=== PATIENT | female | born 1945 | race Caucasian/White ===

== ENCOUNTER 2024-05-19 06:56 | Inpatient (IN) | payer MEDICARE, SELFPAY ==
[2024-05-19] VITALS (15 sets, daily range): BP systolic 116–183; BP diastolic 70–116; PULSE 87–132; RESP 12–91; TEMP 36.5–37.1; O2SAT 95–100; BMI 31.0
--- NOTE | 2024-05-19 07:08 | PD.EDBACK ---
ED Back Injury Pain RME/HPI General Chief Complaint: Back Pain/Injury Stated Complaint: SOB Time Seen by Provider: 05/19/24 07:07 Arrival date/time: 05/19/24 06:56 RME / HPI RME / HPI Narrative: Patient is a 79-year-old female with past medical history of CHF (EF 25-30% 05/2022), fibromyalgia, polymyalgia rheumatica, hypothyroidism, hypertension, and asthma who was brought by ambulance to the ED on 05/19/2024 due to 10 upper back pain which started around 2:30 am this morning, constant and worsening in nature, relieved by sitting up and exacerbated by lying down, with some radiation forward to the chest. Patient states she has gotten this similar pain intermittently over the past 2-3 years and usually she relieves it with positional changes and ice packs but flares have been increasing lately and she was prescribed tramadol in the last month for the pain. She took tramadol last night before going to bed and had another half tab. She is on prednisone for her polymyalgia rheumatica and about a month ago her dose was decreased from 40 mg daily to alternating between 20 mg and 30 mg daily. Patient is on 2L home O2 as needed and at night due to her heart failure. Patient's insulator technician is Dr. Rodriguez. Patient reports her breathing has been at baseline until this morning when EMS came and she had increased pain. She is wheelchair bound. She lives at home with her . Complaint: back pain Onset (ago): hour(s) Duration: constant Similar Symptoms Previously: Yes Location: thoracic spine Severity: severe Quality: aching Radiation: other (mid-chest) Severity scale (1-10): 10 Relieving factors: sitting upright Exacerbating factors: supine and other (laying flat) Context: other (wake from sleep) Associated symptoms: other (anxiety) Related Data Home Medications ?Medication ?Instructions ?Recorded ?Confirmed albuterol sulfate 90 mcg/actuation 2 puff inhalation Q6H PRN 05/27/22 05/27/22 aerosol inhaler Shortness Of Breath Or Wheezing fluticasone 250 mcg-salmeterol 50 1 inh inhalation BID 05/27/22 05/27/22 mcg/dose blistr powdr for inhalation levothyroxine 125 mcg tablet 125 mcg PO QDAY 05/27/22 05/28/22 losartan 100 mg tablet 100 mg PO QDAY 05/27/22 05/28/22 furosemide 40 mg tablet 40 mg PO QDAY 05/28/22 05/28/22 pregabalin 75 mg capsule 75 mg PO BID 05/28/22 05/28/22 Previous Rx's ?Medication ?Instructions ?Recorded aspirin 81 mg capsule 81 mg PO QDAY #30 caps 05/29/22 carvedilol 3.125 mg tablet (Coreg) 3.125 mg PO BID #60 tabs 05/29/22 spironolactone 25 mg tablet 25 mg PO QDAY #30 tabs 05/29/22 (Aldactone) Allergies Allergy/AdvReac Type Severity Reaction Status Date / Time potassium Allergy Rash Verified 05/27/22 18:17 [id number] Reductase AdvReac Severe Myalgia Verified 05/29/22 09:40 Inhibitor Review of Systems Review of Systems Systems Reviewed: All systems reviewed, normal except as documented Past Medical History Past Medical History Comments PMH COMMENT: Past Medical History: CHF (EF 25-30% 05/2022), fibromyalgia, polymyalgia rheumatica, hypothyroidism, hypertension, and asthma Family History: Notable for heart disease in both parents Surgical History: Cholecystectomy Social History: Denies history of smoking, denies current alcohol use, denies recreational drug use Current Medications: Clopidogrel 75 mg qday, Entresto 49-51 mg, furosemide 40 mg BID (patient has been taking only 20 mg qday), metoprolol succinate 25 mg qday, levothyroxine 125 mcg qday, prednisone 20 mg/30 mg alternating every other day, tramadol 50 mg BID prn, fluticasone proprionate/salmeterol 250/50 1 puff BID, albuterol sulfate 90 mcg prn, meclizine prn, Vitamin D3 2000 U qday, liquid calcium (Source: Patient own medication list) Allergies: No known drug allergies ED Exam Narrative Physical exam: Physical Exam General: Awake and in mild distress, able to answer questions appropriately. Cushingoid appearance. HEENT: Normocephalic, atraumatic, mucous membranes moist. Humpback neck, flores face. Heart: Regular rate and rhythm, no murmurs. No tenderness to palpation of the chest. Lungs: Bilateral crackles throughout lung [place]. Audible wet breath sounds. Abdomen: Soft, obese, nondistended, nontender, positive bowel sounds. ?No guarding or rebound tenderness. Neurologic: Alert and oriented x3, no gross neurological deficit, and patient able to move all 4 extremities. Extremities: Bilateral 1+ pitting peripheral edema. Skin: No rash or ecchymoses. Course Quality Measures VTE therapy Orders Category Date Time Status COVID-19 Screening Questionnaire NOW Care 05/19/24 12:54 Active Housecalls Nurse STAT Care 05/19/24 08:08 Active Continuous Pulse Oximetry STAT Care 05/19/24 08:08 Completed Decision to Admit X1 Care 05/19/24 12:54 Completed EKG (ED ONLY) *Do not use* NOW Care 05/19/24 08:01 Completed Notify provider NOW Care 05/19/24 12:37 Active Strict Intake and Output Routine Care 05/19/24 08:08 Ordered Consult to Cardiology Stat Cons 05/19/24 12:39 Ordered CXRP [XR chest 1V portable] Stat Exams 05/19/24 08:01 Completed EKG (ED Only) Stat Exams 05/19/24 08:01 Draft BNP [B-Type Natriuretic Peptide] Stat Lab 05/19/24 08:40 Completed CBC Stat Lab 05/19/24 08:40 Completed CMP [Comprehensive Metabolic Panel] Stat Lab 05/19/24 08:40 Completed CRP [C-Reactive Protein] Stat Lab 05/19/24 08:40 Completed Drug Screen,Urine Stat Lab 05/19/24 08:12 Ordered ESR [Sed Rate (ESR)] Stat Lab 05/19/24 08:40 Completed Lactate (Lactic Acid) Stat Lab 05/19/24 08:40 Completed Lipase Stat Lab 05/19/24 08:40 Completed Mag [Magnesium] Stat Lab 05/19/24 08:40 Completed Partial Thromboplastin Time AM DRAW Lab 05/21/24 05:00 Ordered Partial Thromboplastin Time Stat Lab 05/19/24 11:50 Completed Phosphorous Stat Lab 05/19/24 08:40 Completed Prothrombin Time with INR AM DRAW Lab 05/21/24 05:00 Ordered Prothrombin Time with INR Stat Lab 05/19/24 11:50 Completed Troponin I Q6H Lab 05/19/24 15:40 Ordered Troponin I Q6H Lab 05/19/24 21:40 Ordered Troponin I Q6H Lab 05/20/24 03:40 Ordered Troponin I Stat Lab 05/19/24 08:40 Completed Troponin I Stat Lab 05/19/24 11:50 Completed Urinalysis, C/S if Indicated Stat Lab 05/19/24 08:10 Ordered Aspirin Med 05/19/24 12:27 Discontinued 325 mg PO X1 ONE Furosemide [Lasix Inj] Med 05/19/24 08:57 Discontinued 40 mg IVP X1 ONE Heparin Inj Med 05/19/24 12:37 Discontinued 2,850 unit IV X1 ONE Heparin Inj Med 05/19/24 13:25 Discontinued 4,000 unit IVP X1 ONE Heparin Inj Med 05/19/24 12:37 Discontinued 5,700 unit IV X1 ONE Heparin/D5w 25K 250 ML Ivpb [Heparin in D5w Ivpb] Med 05/19/24 12:45 Active 25,000 unit in 250 ml IV 10.49 units/kg/hr Ketorolac Inj [Toradol Inj] Med 05/19/24 07:36 Discontinued 30 mg IVP X1 ONE Morphine Inj Med 05/19/24 07:03 Discontinued 2 mg IVP X1 ONE Oxygen Delivery NOW RT 05/19/24 08:08 Active Reevaluation(s) Reevaluation #1: 11:45: Patient re-examined at the bedside. Appeared significantly improved, sitting up comfortably in bed, playing a card game on her phone, and stated back pain is now completely resolved after ice pack treatment and pain medications morphine and ketorolac. Will cancel the CT angio chest/abdomen/pelvis at this point as the pain is most likely related to polymyalgia rheumatica flare. Reevaluation #2: 12:20: Repeat troponin was significantly elevated from prior, 3.758->13.594. Will discuss with Cardiology. Patient updated on results and plan of care. Vital Signs Vital signs: Vital Signs Temperature 98.3 F 05/19/24 07:04 Pulse Rate 106 H 05/19/24 07:04 Respiratory Rate 22 H 05/19/24 07:04 Blood Pressure 160/100 H 05/19/24 07:04 Pulse Oximetry (%) 96 05/19/24 07:04 Oxygen Delivery Method Nasal Cannula 05/19/24 07:04 Oxygen Flow Rate 2 05/19/24 07:04 Procedures -ED EKG Interpretation #1: Date of EK/12/25 Time of EK:33 Rate: 98 Interpretation: Interpreted by me EKG Impression: Normal sinus rhythm, [place] deviation (left) and Bundle branch block (left) Additional EKG comment: The left bundle branch seems new compared to an old EKG from 2022. It is uncertain when this change occurred. Back Pain / Injury MDM Narrative MDM Narrative:: Patient presents with midline upper back pain which is similar in nature to prior episodes of back pain that the patient has had over the last few years but worsened in nature today to the point of waking the patient from sleep and calling EMS. Physical examination reveals mild tenderness to palpation of the midline thoracic area around the hump of the back T3-T4 area between the shoulder blades but otherwise no spinal process tenderness, no fluctuance or area of erythema, ecchymosis, heat noted. Possible differential diagnoses may include flare of polymyalgia rheumatica, disc herniation, compression fracture, musculoskeletal strain, spinal tumor, osteomyelitis, discitis, aortic dissection, aortic aneurysm, ACS, pericarditis, CHF exacerbation, costochondritis, pleural disease, renal colic from nephrolithiasis, pyelonephritis. CT angio of the chest/abdomen/pelvis, CBC, CMP, Mag, Phos, Troponin, BNP, ESR, CRP, Lactate, Urinalysis, and Urine drug screen were ordered to further investigate the above possible causes. Patient data External records reviewed:: [facility] previous records and EMS form Clinical information provided by:: patient and spouse Social determinants that could affect healthcare access:: none Patient has the following chronic illnesses:: As above How is presenting disease/condition affected by chronic disease/condition?: exacerbated by Evaluation data The following diagnostics were reviewed and interpreted by me:: lab results, radiology exam(s) and EKG tracing(s) Lab and/or radiology exams considered but not ordered:: Ordered Interpretation Summary: Leukocytosis of 20.9, likely in the setting of chronic steroid use. No evidence of pneumonia on CXR. Hemoglobin 12.1 within normal limits. BNP was elevated at 2583, consistent with patient's history of heart failure. Troponin is elevated at 3.758 and on repeat the troponin significantly uptrended to 13.594. At this point there is a suspicion for NSTEMI and Cardiology was contacted. Medications / Prescriptions Medications or Prescriptions considered but not ordered:: Given Medication administrations:: Medication Administration History Heparin Sodium/Dextrose (Heparin In D5w Ivpb) 25,000 unit in 250 mls @ 9.992 mls/hr IV .Q24H CLARA; Protocol Stop: 06/02/24 12:44 Discontinued Medications Aspirin (Aspirin 325 Mg Tablet) 325 mg PO X1 ONE Stop: 05/19/24 12:28 Last Admin: 05/19/24 12:33 Dose: 325 mg Documented By: CONSTANCE Furosemide (Furosemide Inj 10 Mg/Ml Vial 2 Ml) 40 mg IVP X1 ONE Stop: 05/19/24 08:58 Last Admin: 05/19/24 10:38 Dose: 40 mg Documented By: CONSTANCE Heparin Sodium (Porcine) (Heparin Sod Inj 5000 Unit/Ml Vial) 5,700 unit 60 unit/kg (5700 unit) IV X1 ONE; Protocol Stop: 05/19/24 12:38 Last Admin: 05/19/24 13:23 Dose: Not Given Documented By: CONSTNACE Non-Admin Reason: Cancelled by Provider Heparin Sodium (Porcine) (Heparin Sod Inj 5000 Unit/Ml Vial) 2,850 unit 30 unit/kg (2850 unit) IV X1 ONE; Protocol Stop: 05/19/24 12:38 Last Admin: 05/19/24 13:24 Dose: Not Given Documented By: CONSTANCE Non-Admin Reason: Cancelled by Provider Heparin Sodium (Porcine) (Heparin Sod Inj 5000 Unit/Ml Vial) 4,000 unit IVP X1 ONE Stop: 05/19/24 13:26 Last Admin: 05/19/24 14:12 Dose: 4,000 unit Documented By: HIGINIO Co-signed By: CONSTANCE Ketorolac Tromethamine (Ketorolac Inj 30 Mg/Ml Vial) 30 mg IVP X1 ONE Stop: 05/19/24 07:37 Last Admin: 05/19/24 07:39 Dose: 30 mg Documented By: CONSTANCE Morphine Sulfate (Morphine Sulf Inj 10 Mg/Ml Vial) 2 mg IVP X1 ONE Stop: 05/19/24 07:04 Last Admin: 05/19/24 07:23 Dose: 2 mg Documented By: CONSTANCE Given Consultations Consultation(s) initiated? (list below): No Consultation #1 (Physician, Specialty, Details): 12:30 Patient's Medical Diagnostic Radiographer, Dr. Rodriguez - Spoke with Dr. Rodriguez regarding patient case since patient is under his care. Since Dr. Rodriguez is currently out of town, he is requesting we consult Cardiology on-call, which is currently Dr. Reyes. Consultation #2 (Physician, Specialty, Details): 12:35 Cardiology on-call, Dr. Reyes - Spoke with Dr. Reyes regarding patient case. Recommend starting heparin drip and loading dose aspirin. Will consult and follow the case. Consultation #3 (Physician, Specialty, Details): 13:40 Hospitalist Team A, Dr. Heller, with attending Dr. Ernst - Discussed patient's presentation, ED findings, treatment, above consult, and indication for admission. Patient will be evaluated for admission. Diagnosis Differential diagnosis back pain/injury: lumbar radiculopathy, sciatica, strain of lumbar region, renal colic, pyelonephritis, thoracic back pain, AAA and discitis Most likely diagnosis given after review of the tests above:: NSTEMI Admission Indicated Admission indicated?: indicated Explain why admission is indicated or not indicated:: Treatment for NSTEMI Admission Request Was there a request for admission?: Yes Admission Attestation Admission request attestation: Discussed case with [Dr. Heller] from Hospitalist service with attending Dr. Ernst regarding admission. Discussed patients ED course, exam findings, labs, and radiology results. The Hospitalist [agrees] to accept the patient for admission. Disposition Plan Disposition Plan: Admit Discharge Plan Plan Patient Disposition: Admit Acute Care w/in Hospital Prescriptions/Referrals Prescriptions/Med Rec: No Action levothyroxine 125 mcg Tablet 125 mcg PO QDAY albuterol sulfate 90 mcg/actuation Hfa Aerosol Inhaler 2 puff INHALATION Q6H PRN (Reason: Shortness Of Breath Or Wheezing) losartan 100 mg Tablet 100 mg PO QDAY fluticasone propion-salmeterol 250-50 mcg/dose Blister With Device 1 inh INHALATION BID furosemide 40 mg tablet 40 mg PO QDAY pregabalin 75 mg capsule 75 mg PO BID Patient Comments: TAKE 1 CAPSULE BY MOUTH TWICE A DAY aspirin 81 mg capsule 81 mg PO QDAY Qty: 30 2RF carvedilol [Coreg] 3.125 mg tablet 3.125 mg PO BID Qty: 60 2RF Rx Instructions: must administer with a meal/food spironolactone [Aldactone] 25 mg tablet 25 mg PO QDAY Qty: 30 2RF Referrals: Suraj Yi MD [Primary Care Provider] - In 1 week Problem List Clinical Impression: Non-STEMI (non-ST elevated myocardial infarction) Patient/Caregiver Discharge Instructions Print Language: Polish Stand Alone Forms: Stacy Award Info., Patient Portal Info Letter
[2024-05-19] MEDS: MORPHINE SULF INJ 10 MG/ML VIAL 2 MG IVP (07:23)
[2024-05-19] MEDS: KETOROLAC INJ 30 MG/ML VIAL IVP (07:39)
--- NOTE | 2024-05-19 08:01 | EKG_ITS ---
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
--- NOTE | 2024-05-19 08:01 | XR_ITS ---
Examination: AP chest single view Technique one AP portable upright chest single view Exam date and time: May 19, 2024 0851 hours Comparison May 27, 2022 INDICATIONS: Shortness of breath chest pain today FINDINGS: Mild CHF Mild to moderate enlargement cardiac contour. Prominent vascular congestion with early perihilar edema Prominent osteopenia IMPRESSION: Mild CHF
[2024-05-19 09:10] LABS: Lactate (Lactic Acid) 2.2 mMol/L (0.4-2.0)
[2024-05-19 09:13] LABS: Basophils % (Auto) 0 % (0-2.5); Eosinophils % (Auto) 0 % (0-10); Hematocrit 38.4 % (36.0-46.0); Hemoglobin 12.1 g/dL (12.0-16.0); Immature Granulocytes % (Auto) 1 % (0-0); Immature Granulocytes Auto 0.26 Thou/mm3 (0.00-0.00); Lymphocytes # (Auto) 1.1 Thou/mm3 (1.0-4.8); Lymphocytes % (Auto) 5 % (10-50); Mean Corpuscular HGB Conc 31.5 g/dl (31.0-37.0); Mean Corpuscular Hemoglobin 27.4 pg (25.0-35.0); Mean Corpuscular Volume 87 fL (80-100); Monocytes % (Auto) 5 % (0-12); Neutrophils # (Auto) 18.5 Thou/mm3 (1.8-7.7); Neutrophils % (Auto) 89 % (37-80); Nucleated Red Blood Cell % 0 /100 WBC (0); Platelet Count 288 Thou/mm3 (140-440); RDW Standard Deviation 51.3 fL (36.4-46.3); Red Blood Count 4.41 Miln/mm3 (4.00-5.20); White Blood Count 20.9 Thou/mm3 (3.6-11.0)
[2024-05-19 09:32] LABS: Sed Rate (ESR) 14 mm/hr (0-30)
[2024-05-19 09:47] LABS: Alanine Aminotransferase 23 U/L (10-49); Albumin, Serum 4.3 gm/dL (3.4-4.8); Alkaline Phosphatase 79 U/L (46-116); Anion Gap 8 (7-16); Aspartate Amino Transferase 41 U/L (0-34); BUN/Creatinine Ratio 30 Ratio (12-20); Bilirubin,Total 0.3 mg/dL (0.3-1.2); Blood Urea Nitrogen 39 mg/dL (9-23); C-Reactive Protein < 0.4 mg/dL (0.0-0.9); Carbon Dioxide 30.2 mMol/L (20.0-31.0); Chloride 103 mMol/L (98-107); Creatinine (Component) 1.3 mg/dL (0.6-1.3); Estimated Creatinine Clearance 43.1 mL/min (>60); Globulin 2.1 gm/dL (2.3-3.5); Glucose 169 mg/dL (74-106); Lipase 38 U/L (12-53); Magnesium 2.1 mg/dL (1.6-2.6); Osmolality,Calculated 294 (275-295); Potassium 4.6 mMol/L (3.4-5.1); Sodium 141 mMol/L (136-145); Total Protein 6.4 gm/dL (5.7-8.2); eGFR 42 See Note
[2024-05-19 09:53] LABS: Troponin I 3.758 ng/mL (0.0-0.045)
[2024-05-19 09:57] LABS: B-Type Natriuretic Peptide 2583 pg/mL (0-100)
[2024-05-19] MEDS: FUROSEMIDE INJ 10 MG/ML VIAL 2 ML 40 MG IVP (10:38)
[2024-05-19 12:08] LABS: Reflex Lactate? Y
[2024-05-19 12:25] LABS: Troponin I 13.594 ng/mL (0.0-0.045)
[2024-05-19] MEDS: Aspirin 325 MG TABLET PO (12:33)
[2024-05-19 13:58] LABS: INR 0.9 (0.9-1.3); Prothrombin Time 10.3 Seconds (9.0-12.2)
[2024-05-19] MEDS: HEPARIN SOD INJ 5000 UNIT/ML VIAL 4000 UNIT IVP (14:12)
[2024-05-19] MEDS: Heparin/D5w 25K 250 ML Ivpb 25,000 UNIT/250 ML BAG 9.992 UNIT IV (14:31)
--- NOTE | 2024-05-19 15:11 | ECHO_ITS ---
Transthoracic Echo Report Ht (in): 68.9 Wt (lb): 210 Exam Location: Echo Lab Status: Emergency Turn Supervisor: BRANDIN Carmona Indications: Procedure Performed: BP: 154 / 70 HR: 96 Technical Quality: Technically difficult study MEASUREMENTS (Male / Female) Normal Values M-MODE AV Cusp Separation MM 0.8 cm DOPPLER AV Peak Gradient 11.3 mmHg AV Mean Gradient 5.4 mmHg AV Velocity Time Integral 27.5 cm LVOT Peak Gradient 3.0 mmHg LVOT Velocity Time Integral 12.4 cm MR Peak Velocity 602.0 cm/s MR Peak Gradient 145.0 mmHg TR Peak Gradient 34.1 mmHg FINDINGS Left Ventricle Normal left ventricular size. Global left ventricular systolic function is moderately decreased. The ejection fraction is visually estimated at 30-35%. Right Ventricle The right ventricle is normal in size and systolic function. The estimated right ventricular systolic pressure, 39 mmHg. RAP 5. Left Atrium The left atrium is normal by two-dimensional, color flow and Doppler imaging with no structural abnormalities, no thrombus formation present. Right Atrium The right atrium is normal by two-dimensional imaging, color flow and Doppler imaging with no structural abnormalities, no thrombus formation present. Atrial Septum The interatrial septum appears normal with no evidence of a shunt. Aorta The aorta is normal by two-dimensional, color flow and Doppler interrogation. Mitral Valve The mitral valve is normal by two-dimensional, color flow and Doppler interrogation. Moderate mitral regurgitation. Aortic Valve The aortic valve is trileaflet and normal by two-dimensional, color flow and Doppler interrogation. There is no significant aortic valve regurgitation. Tricuspid Valve The tricuspid valve is normal by two-dimensional, color flow and Doppler interrogation. There is mild tricuspid valve regurgitation. Pulmonic Valve The pulmonic valve is not well visualized. There is no significant pulmonic valve regurgitation. Vessels The pulmonary artery appears normal. The inferior vena cava pulmonary and hepatic veins appear normal. Pericardium The pericardium is normal by two-dimensional imaging. There is no significant pericardial effusion. CONCLUSIONS Indication: NSTEMI, hx HFrEF LV mildy dilated with global hypokinesis with Estimated EF 30-35%%. RV is normal in size and systolic function. Estimated RVSP, 39 mmHg. RAP 5. [place] 2+MR. Mild TR. [place] (Electronically Signed) Final Date: 19 May 2024 23:52
--- NOTE | 2024-05-19 15:18 | ESHP_ITS ---
<Statement entered by Raiza Lock MD - 05/19/24 17:57> Patient is a 79 year old female with PMH of HFrEF 25-30%, fibromyalgia, polymyalgia rheumatica on chronic steroids, statin-related myopathy now wheelchair-bound who presents to the ER for sharp upper back pain. EKG showed a left BBB and ?ST depression in lead II. Troponin was 3 to 13 to 29. Patient was given aspirin, nitro, morphine, and started on heparin drip. Cardiolgoy was consulted for atypical chest pain and suspected NSTEMI. Patient to undergo cardiac cath. Raiza Lock MD PGY-3 Documentation for date of: 05/19/24 HPI History of Present Illness Chief complaint: middle upper back pain, radiates to shoulders History of present illness: Chitra Roman is a 79 yr female with PMH of fibromyalgia, polymyalgia rheumatica, hypothyroidism, hypertension, wheelchair-bound, asthma, HFrEF (25- 30%), on 2 L oxygen use at night, obesity, chronic neck shoulder pain who presented to ED today due to mid upper back pain that worsened through the night. Patient stated that the pain was unbearable causing her to wake up. She has experienced this type pain before but not to this extent. Pain started around 2 AM, mid scapular, burning sensation 9/10, no alleviation with ice pack that usually helps. Patient had taken a tramadol 50 mg x 1 before bedtime. Denies any chest pain however endorses radiation of the back pain to the shoulders bilaterally. Denies any headaches, change in vision, abdominal pain, fevers, palpitations, diaphoresis, or dysuria. In regards to patient's fibromyalgia/polymyalgia rheumatica, she is being followed by rheumatology Dr. Pearson who has restarted the patient on prednisone 3 months ago. Typically autoimmune disorder is controlled with ice packs and tramadol but has worsened in past few months. In ED, Vitals significant for hypertension 160/100, slight tachy 106, tachypnea 22, on 2 L nasal cannula saturating 96%. Labs reveal leukocytosis 20, hemoglobin 12, sodium 144, potassium 4.6, creatinine 1.3, glucose 169, lactic acid slightly elevated 2.2, Phos 4.0, mag 2.1, troponins up trended from 3.75- 13.59, BNP 2583. EKG showed new onset LBBB, no ST elevation/depression. Chest x-ray negative for pneumonia, enlarged cardiac contour with vascular congestion indicating CHF. Dr. Reyes was consulted and patient was started on heparin drip in the ED. Also given aspirin loading dose to 25 mg, Lasix 40 IV x 1, ketorolac 30 mg IV x 1, morphine 2 mg IV x 1 Patient admitted for management of NSTEMI type I. PMH: as above. Of note, patient is wheelchair-bound due to myopathy in response to statins as well as unknown inherited cause of muscle weakness from father. PSH: Cholecystectomy FamHx: Both mother and father had history of [place] with stents, hypertension Social: Unemployed, lives in [place] with . Denies smoking, drinking. Allergies: potassium (rash), Statins (myopathy) Meds: Albuterol, levo thyroxine 125 mcg, losartan 100 mg daily, furosemide 40 mg daily, pregabalin 75 twice daily tramadol 25 twice daily, prednisone 40 mg daily Review of Systems Constitutional Constitutional: Reports system reviewed and no additional complaints, except as documented Exam Vital Signs Temp Pulse Resp BP Pulse Ox O2 Del Method O2 Flow Rate 98.2 F 95 20 137/77 H 99 Nasal Cannula 3 05/19/24 14:15 05/19/24 14:15 05/19/24 14:15 05/19/24 14:15 05/19/24 14:15 05/19/24 14:15 05/19/24 14:15 Narrative Exam General: Elderly female, laying comfortably, no acute distress, cooperative HEENT: NCAT, No JVD noted. Mucosa moist. Pupils are equal and reactive to light bilaterally, flores facies Cardiovascular: Normal S1 and S2. Regular rate and rhythm. Respiratory: Lungs are clear to auscultation bilaterally. No wheezing or crackles heard. On 2L NC Abdomen: Soft, nontender, not distended, normal bowel sounds. Skin: Warm to touch, dry, facial redness, dried pimple/lesion on left cheek Musculoskeletal: No gross injuries. Able to move all 4 extremities. No pitting edema, atrophic LE Neuro: Alert and oriented x3. No focal neuro deficits. Psych: Normal affect and mood Results: Labs 05/20/24 04:34 05/20/24 04:34 Labs: Short CBC 05/19/24 Range/Units 08:40 WBC 20.9 H (3.6-11.0) Thou/mm3 Hgb 12.1 (12.0-16.0) g/dL Hct 38.4 (36.0-46.0) % Plt Count 288 (140-440) Thou/mm3 BMP 05/19/24 08:40 Sodium 141 Potassium 4.6 Chloride 103 Carbon Dioxide 30.2 BUN 39 H Creatinine 1.3 Glucose 169 H Calcium 10.0 Cardiac Enzymes 05/19/24 05/19/24 Range/Units 08:40 11:50 Troponin I 3.758 H* 13.594 H* D (0.0-0.045) ng/mL Liver Function 05/19/24 Range/Units 08:40 Total Bilirubin 0.3 (0.3-1.2) mg/dL AST 41 H (0-34) U/L ALT 23 (10-49) U/L Alkaline Phosphatase 79 (46-116) U/L Albumin 4.3 (3.4-4.8) gm/dL Quality Measures Quality Measures VTE therapy Advance care planning discussed with:: patient Medications Home Medications and Allergies Home Medications ?Medication ?Instructions ?Recorded ?Confirmed ?Type albuterol sulfate 90 mcg/actuation 2 puff inhalation Q 6H PRN 05/27/22 05/19/24 History aerosol inhaler Shortness Of Breath Or Wheez ing fluticasone 250 mcg-salmeterol 50 1 inh inhalation BID 05/27/22 05/19/24 History mcg/dose blistr powdr for inhalation levothyroxine 125 mcg tablet 125 mcg PO QDAY 05/27/22 05/19/24 History furosemide 40 mg tablet 40 mg PO QDAY 05/28/2205/19 History clopidogrel 75 mg tablet 75 mg PO QDAY 05/19/2405/19 History meclizine 50 mg tablet 50 mg PO QDAY 05/19/2405/19 History prednisone 10 mg tablet 30 mg PO EVERYOTHERDAY 05/1905/19/24 History prednisone 20 mg tablet 20 mg PO EVERYOTHERDAY 05/1905/19/24 History sacubitril 49 mg-valsartan 51 mg 1 tab PO BID 05/19/24 05/19/24 History tablet (Entresto) tramadol 50 mg tablet 50 mg PO Q12H PRN pain 05/1905/19/24 History carvedilol 3.125 mg tablet (Coreg) 3.125 mg PO BID 05/20/24 History Allergies Allergy/AdvReac Type Severity Reaction Status Date / Time potassium Allergy Rash Verified 05/27/22 18:17 Aaenyaz-IVG-DtE Reductase AdvReac Severe Myalgia Verified 05/29/22 09:40 Inhibitor Visit Medications Acetaminophen (Acetaminophen 325 Mg Tablet) 650 mg PO Q6H PRN PRN Reason: Fever >100.3 or pain Stop: 06/18/24 15:03 Aspirin (Aspirin Ec 81 Mg Tabec) 81 mg PO DAILY CLARA Stop: 06/19/24 08:59 Heparin Sodium/Dextrose (Heparin In D5w Ivpb) 25,000 unit in 250 mls @ 9.992 mls/hr IV .Q24H CLARA; Protocol Stop: 06/02/24 12:44 Last Admin: 05/19/24 14:31 Dose: 10.49 units/kg/hr, 9.992 mls/hr Ondansetron HCl (Ondansetron Inj 2 Mg/Ml Inj 2 Ml) 4 mg IV Q6H PRN; Protocol PRN Reason: NAUSEA OR VOMITING Stop: 06/18/24 15:03 Sennosides (Senna Tablet) 1 tab PO QDAY PRN; Protocol PRN Reason: constipation Stop: 06/18/24 15:03 Discontinued Medications Aspirin (Aspirin 325 Mg Tablet) 325 mg PO X1 ONE Stop: 05/19/24 12:28 Last Admin: 05/19/24 12:33 Dose: 325 mg Furosemide (Furosemide Inj 10 Mg/Ml Vial 2 Ml) 40 mg IVP X1 ONE Stop: 05/19/24 08:58 Last Admin: 05/19/24 10:38 Dose: 40 mg Heparin Sodium (Porcine) (Heparin Sod Inj 5000 Unit/Ml Vial) 5,700 unit 60 unit/kg (5700 unit) IV X1 ONE; Protocol Stop: 05/19/24 12:38 Last Admin: 05/19/24 13:23 Dose: Not Given Heparin Sodium (Porcine) (Heparin Sod Inj 5000 Unit/Ml Vial) 2,850 unit 30 unit/kg (2850 unit) IV X1 ONE; Protocol Stop: 05/19/24 12:38 Last Admin: 05/19/24 13:24 Dose: Not Given Heparin Sodium (Porcine) (Heparin Sod Inj 5000 Unit/Ml Vial) 4,000 unit IVP X1 ONE Stop: 05/19/24 13:26 Last Admin: 05/19/24 14:12 Dose: 4,000 unit Ketorolac Tromethamine (Ketorolac Inj 30 Mg/Ml Vial) 30 mg IVP X1 ONE Stop: 05/19/24 07:37 Last Admin: 05/19/24 07:39 Dose: 30 mg Morphine Sulfate (Morphine Sulf Inj 10 Mg/Ml Vial) 2 mg IVP X1 ONE Stop: 05/19/24 07:04 Last Admin: 05/19/24 07:23 Dose: 2 mg Nitroglycerin (Nitroglycerin 0.4 Mg Subl Btl #25) 0.4 mg SL X1 ONE Stop: 05/19/24 15:16 Assessment & Plan Plan Chitra Roman is a 79 yr female with PMH of fibromyalgia, polymyalgia rheumatica, hypothyroidism, hypertension, wheelchair-bound, asthma, HFrEF (25- 30%), on 2 L oxygen use at night, obesity, chronic neck shoulder pain who presented to ED today due to mid upper back pain that worsened through the night. Pain started around 2 AM, mid scapular, burning sensation 9/10, no alleviation with ice pack that usually helps. Denies any headaches, change in vision, abdominal pain, fevers, palpitations, diaphoresis, or dysuria. Patient admitted for management of NSTEMI type I. #NSTEMI type I Patient is having atypical chest pain. However, this episode was more significant and unremitting in nature. Pain started around 2 AM, mid scapular, burning sensation 9/10, no alleviation with ice pack that usually helps. Troponins up trended from 3.75-13.59, BNP 2583. EKG showed new onset LBBB, no ST elevation/depression. Chest x-ray negative for pneumonia, enlarged cardiac contour with vascular congestion indicating CHF. Dr. Reyes was consulted and patient was started on heparin drip in the ED. Also given aspirin loading dose to 325 mg, Lasix 40 IV x 1, ketorolac 30 mg IV x 1, morphine 2 mg IV x 1 -Patient will undergo cardiac cath tomorrow ? N.p.o. at midnight ? Follow-up with echo ? Give nitroglycerin sublingual x 1 ? Continue aspirin 81 mg ? Trend troponins every 6 hours ? EKG every 6 hour ? Hold any statins due to patient's severe myopathy ? Does not appear to be overloaded. Will consider restarting Coreg pending cardiology recs -herparin drip per ACS protocol #Hx HFrEF (25-30%) Most recent echo on 05/28/2022. Severe systolic dysfunction, global hypokinesis, estimated EF 25-30%. Difficult to grade NYHA class as patient is wheel chair bound. Sees Dr. Rodriguez outpatient. Currently does not appear to be fluid overloaded on physical exam. Home meds: -Losartan 100 mg daily ? Coreg 3.125 mg daily ? Spironolactone 25 mg daily -furosemide 40 mg daily -daily weights -strict INOs -low sodium diet -keep potassium >4, mag >2 -daily CBC, CMP #Lactic acidosis Mildly elevated at 2.2 -trend lactate q4hr #Hx fibromyalgia #Polymyalgia rheumatica Patient has history of disease since past 3-4 years. Is followed by first mate Dr. Pearson. Patient had been on steroid dose for management sometime ago. Pain and rashes were well-controlled with ice. However recently symptoms have worsened and she has been restarted on the prednisone approximately 3 months ago. -home prednisone 10 mg daily -tramadol 25 mg BID #Hx Hypothyroidism -TSH pending -levothyroxine 125 mg #Hx HTN Patient has been hypertensive since admission. States that it is well controlled at home. -Coreg 3.125 mg BID -Losartan 100 mg daily Health maintenance: Dispo: NSTEMI, pending cardiac cath DVT prophylaxis: heparin drip CODE STATUS: Full code Diet: Cardiac diet, NPO at midnight The patient's management plan was discussed with my attending physician Dr. Ernst and senior Dr. Lock. Kareen Heller, PGY-1 Attending Provider Attestation/Addendum I have discussed and was present for the essential components of the history, physical examination, diagnosis, and treatment plan with the resident. I agree with the patient's care as documented by the resident and amended herein by me. Dennys Ernst, DO. Although this document has been carefully reviewed, there may still be some phonetic and other typographical errors. These errors are purely grammatical due to imperfections in the software program and should not be construed in any way to compromise the substance of the patient's medical care during this visit.
[2024-05-19] MEDS: ONDANSETRON INJ 2 MG/ML INJ 2 ML 4 MG IV (15:27)
[2024-05-19] MEDS: NITROGLYCERIN 0.4 MG SUBL BTL #25 SL (15:29)
[2024-05-19 15:46] LABS: Collection Type, Urine Clean Catch
[2024-05-19] MEDS: MECLIZINE HCL 25 MG TABLET PO (15:55)
[2024-05-19 16:09] LABS: Bilirubin,Urine Negative (Negative); Blood,Urine Negative (Negative); Clarity,Urine Clear (Clear/Hazy); Color,Urine Lt-Yellow (Lt Yel-Yel); Culture Indicated,Urine Not Indicated; Glucose, Urine Negative (Negative); Hyaline Casts,Urine < 1 /hpf (0-1); Ketones,Urine Negative (Negative); Leukocyte Esterase,Urine Positive (Negative); Nitrite,Urine Negative (Negative); Protein,Urine Negative (Neg - Trace); RBC,Urine 1 /hpf (0-3); Specific Gravity,Urine 1.014 (1.001-1.035); Squamous Epithelial Cell,Urine 4 /hpf (0-5); Urobilinogen,Urine Negative mg/dL (0.0-1.0); WBC,Urine 2 /hpf (0-5)
[2024-05-19 16:11] LABS: Amphetamine/Methamp Scrn,U Negative (Negative); Barbiturate Screen,Urine Negative (Negative); Benzodiazepines Screen,Urine Negative (Negative); Benzoylecgonine Screen, Ur Negative (Negative); Fentanyl Screen,Urine Negative (Negative); Opiate Screen,Urine Positive (Negative); THC Screen,Urine Negative (Negative)
[2024-05-19 16:17] LABS: Glucose Estimated Average 126 mg/dL (80-131)
[2024-05-19 17:21] LABS: Troponin I 29.172 ng/mL (0.0-0.045)
--- NOTE | 2024-05-19 17:36 | PD.RESCONSUL ---
HPI Data of Consult Requesting Physician: Barrera Ernst DO Admitting Provider: Barrera Ernst DO Attending Provider: Barrera Ernst DO Primary Care Provider: Suraj Yi MD Consult Narrative Reason for consult: NSTEMI History of present illness: 79 y/o F with PMHx significant for fibromyalgia, polymyalgia rheumatica, hypothyroidism, hypertension, wheelchair-bound, asthma, HFrEF (25-30%), on 2 L oxygen use at night, obesity, chronic neck shoulder pain who presented to ED due to mid upper back pain that worsened through the night. Patient stated that the pain was unbearable causing her to wake up. She has experienced this type pain frequently in the past due to polymyalgia rheumatica, however this time the pain did not resolve and was significantly more severe than usual. Pain started around 2 AM, mid scapular, burning sensation 9/10, no alleviation with ice pack that usually helps. Patient had taken a tramadol 50 mg x 1 before bedtime. Denies any chest pain however endorses radiation of the back pain to the shoulders bilaterally. Denies any headaches, change in vision, abdominal pain, fevers, palpitations, diaphoresis, or dysuria. Patient follows with Dr. Rodriguez outpatient, however Dr. Rodriguez is on vacation. ED COURSE: Labs significant for: Leukocytosis 20, hemoglobin 12, sodium 144, potassium 4.6, creatinine 1.3, glucose 169, lactic acid slightly elevated 2.2, Phos 4.0, mag 2.1, troponins up trended from 3.75-13.59, BNP 2583. Imaging significant for: EKG showed new onset LBBB, ST elevation in lead aVR only. Chest x-ray negative for pneumonia, enlarged cardiac contour with vascular congestion indicating CHF. Also given aspirin loading dose 325 mg, Lasix 40 IV x 1, ketorolac 30 mg IV x 1, morphine 2 mg IV x 1. Heparin bolus started and heparin drip initiated. Cardiology consulted for management of NSTEMI type I. PMH: fibromyalgia, polymyalgia rheumatica, hypothyroidism, hypertension, wheelchair-bound, asthma, HFrEF (25-30%), on 2 L oxygen use at night, obesity, chronic neck shoulder pain PSH: Cholecystectomy FamHx: Both mother and father had history of [place] with stents, hypertension Social: Unemployed, lives in [place] with . Denies smoking, drinking. Allergies: potassium (rash), Statins (myopathy) Meds: Albuterol, levo thyroxine 125 mcg, losartan 100 mg daily, furosemide 40 mg daily, pregabalin 75 twice daily tramadol 25 twice daily, prednisone 40 mg daily cc:: cc: Barrera Ernst, Review of Systems Review of Systems Systems Reviewed: All systems reviewed, normal except as documented Past Medical History Past Medical History Comments PMH COMMENT: PMH: fibromyalgia, polymyalgia rheumatica, hypothyroidism, hypertension, wheelchair-bound, asthma, HFrEF (25-30%), on 2 L oxygen use at night, obesity, chronic neck shoulder pain PSH: Cholecystectomy FamHx: Both mother and father had history of [place] with stents, hypertension Social: Unemployed, lives in [place] with . Denies smoking, drinking. Allergies: potassium (rash), Statins (myopathy) Meds: Albuterol, levo thyroxine 125 mcg, losartan 100 mg daily, furosemide 40 mg daily, pregabalin 75 twice daily tramadol 25 twice daily, prednisone 40 mg daily Exam Vital Signs Temp Pulse Resp BP Pulse Ox O2 Del Method O2 Flow Rate 97.8 F 96 19 154/70 H 98 Nasal Cannula 2 05/19/24 16:00 05/19/24 16:00 05/19/24 16:00 05/19/24 16:05/19/24 16:00 05/19/24 16:05/19/24 16:00 Narrative Exam PE: Gen: Well-developed and well-nourished. Obese. HEENT: NCAT, PERRLA, EOMI, MMM, anicteric conjunctivae. CVS: normal S1 and S2. RRR. No M/R/G. Resp: CTA B/L. No rhonchi, rales, crackles or wheezing. Abd: soft, non-tender, non-distended. MSK: Good ROM in BUE & BLE. No rash. Trace BLE edema. Neuro: CN II-XII grossly intact. Strength 5/5 in BUE & BLE. Alert and oriented x3. Psych: appropriate mood and affect. Results Labs 05/19/24 08:40 05/19/24 08:40 Labs: Short CBC 05/19/24 Range/Units 08:40 WBC 20.9 H (3.6-11.0) Thou/mm3 Hgb 12.1 (12.0-16.0) g/dL Hct 38.4 (36.0-46.0) % Plt Count 288 (140-440) Thou/mm3 BMP 05/19/24 08:40 Sodium 141 Potassium 4.6 Chloride 103 Carbon Dioxide 30.2 BUN 39 H Creatinine 1.3 Glucose 169 H Calcium 10.0 Cardiac Enzymes 05/19/24 05/19/24 05/19/24 Range/Units 08:40 11:50 15:56 Troponin I 3.758 H* 13.594 H* D 29.172 H* D (0.0-0.045) ng/mL Liver Function 05/19/24 Range/Units 08:40 Total Bilirubin 0.3 (0.3-1.2) mg/dL AST 41 H (0-34) U/L ALT 23 (10-49) U/L Alkaline Phosphatase 79 (46-116) U/L Albumin 4.3 (3.4-4.8) gm/dL Urine 05/19/24 Range/Units 15:37 Urine Color Lt-Yellow (Lt Yel-Yel) Urine Clarity Clear (Clear/Hazy) Urine pH 6.0 (5.0-7.0) Ur Specific [place] 1.014 (1.001-1.035) Urine Protein Negative (Neg - Trace) Urine Glucose (UA) Negative (Negative) Quality Measures Quality Measures VTE therapy Advance care planning discussed with:: patient Medications Home Medications and Allergies Home Medications ?Medication ?Instructions ?Recorded ?Confirmed ?Type albuterol sulfate 90 mcg/actuation 2 puff inhalation Q6H PRN 05/27/22 05/19/24 History aerosol inhaler Shortness Of Breath Or Wheezing fluticasone 250 mcg-salmeterol 50 1 inh inhalation BID 05/27/22 05/19/24 History mcg/dose blistr powdr for inhalation levothyroxine 125 mcg tablet 125 mcg PO QDAY 05/27/22 05/19/24 History furosemide 40 mg tablet 40 mg PO QDAY 05/28/22 05/19/24 History clopidogrel 75 mg tablet 75 mg PO QDAY 05/19/24 05/19/24 History meclizine 50 mg tablet 50 mg PO QDAY 05/19/24 05/19/24 History metoprolol succ 25 tab PO 05/19/24 History mg-hydrochlorothiazide 12.5 mg tablet,ext.rel 24 hr prednisone 20 mg tablet mg 05/19/24 History sacubitril 49 mg-valsartan 51 mg tab 05/19/24 History tablet (Entresto) tramadol 50 mg tablet mg 05/19/24 History Allergies Allergy/AdvReac Type Severity Reaction Status Date / Time potassium Allergy Rash Verified 05/27/22 18:17 [id number] Reductase AdvReac Severe Myalgia Verified 05/29/22 09:40 Inhibitor Visit Medications Acetaminophen (Acetaminophen 325 Mg Tablet) 650 mg PO Q6H PRN PRN Reason: Fever >100.3 or pain Stop: 06/18/24 15:03 Albuterol (Albuterol Rt 2.5 Mg/0.5 Ml Nebu) 5 mg INH Q6HRRT PRN PRN Reason: wheezing Stop: 06/18/24 18:59 Aspirin (Aspirin Ec 81 Mg Tabec) 81 mg PO DAILY CLARA Stop: 06/19/24 08:59 Heparin Sodium/Dextrose (Heparin In D5w Ivpb) 25,000 unit in 250 mls @ 9.992 mls/hr IV .Q24H CLARA; Protocol Stop: 06/02/24 12:44 Last Admin: 05/19/24 14:31 Dose: 10.49 units/kg/hr, 9.992 mls/hr Ondansetron HCl (Ondansetron Inj 2 Mg/Ml Inj 2 Ml) 4 mg IV Q6H PRN; Protocol PRN Reason: NAUSEA OR VOMITING Stop: 06/18/24 15:03 Last Admin: 05/19/24 15:27 Dose: 4 mg Sennosides (Senna Tablet) 1 tab PO QDAY PRN; Protocol PRN Reason: constipation Stop: 06/18/24 15:03 Discontinued Medications Aspirin (Aspirin 325 Mg Tablet) 325 mg PO X1 ONE Stop: 05/19/24 12:28 Last Admin: 05/19/24 12:33 Dose: 325 mg Furosemide (Furosemide Inj 10 Mg/Ml Vial 2 Ml) 40 mg IVP X1 ONE Stop: 05/19/24 08:58 Last Admin: 05/19/24 10:38 Dose: 40 mg Heparin Sodium (Porcine) (Heparin Sod Inj 5000 Unit/Ml Vial) 5,700 unit 60 unit/kg (5700 unit) IV X1 ONE; Protocol Stop: 05/19/24 12:38 Last Admin: 05/19/24 13:23 Dose: Not Given Heparin Sodium (Porcine) (Heparin Sod Inj 5000 Unit/Ml Vial) 2,850 unit 30 unit/kg (2850 unit) IV X1 ONE; Protocol Stop: 05/19/24 12:38 Last Admin: 05/19/24 13:24 Dose: Not Given Heparin Sodium (Porcine) (Heparin Sod Inj 5000 Unit/Ml Vial) 4,000 unit IVP X1 ONE Stop: 05/19/24 13:26 Last Admin: 05/19/24 14:12 Dose: 4,000 unit Ketorolac Tromethamine (Ketorolac Inj 30 Mg/Ml Vial) 30 mg IVP X1 ONE Stop: 05/19/24 07:37 Last Admin: 05/19/24 07:39 Dose: 30 mg Meclizine HCl (Meclizine Hcl 25 Mg Tablet) 25 mg PO X1 ONE Stop: 05/19/24 15:53 Last Admin: 05/19/24 15:55 Dose: 25 mg Morphine Sulfate (Morphine Sulf Inj 10 Mg/Ml Vial) 2 mg IVP X1 ONE Stop: 05/19/24 07:04 Last Admin: 05/19/24 07:23 Dose: 2 mg Nitroglycerin (Nitroglycerin 0.4 Mg Subl Btl #25) 0.4 mg SL X1 ONE Stop: 05/19/24 15:16 Last Admin: 05/19/24 15:29 Dose: 0.4 mg Assessment & Plan Plan 79 y/o F with PMHx significant for fibromyalgia, polymyalgia rheumatica, hypothyroidism, hypertension, wheelchair-bound, asthma, HFrEF (25-30%), on 2 L oxygen use at night, obesity, chronic neck shoulder pain who presented to ED today due to mid upper back pain that worsened through the night. Pain started around 2 AM, mid scapular, burning sensation 9/10, no alleviation with ice pack that usually helps. Denies any headaches, change in vision, abdominal pain, fevers, palpitations, diaphoresis, or dysuria. Patient admitted for management of NSTEMI type I. #NSTEMI type I, high likelihood severe multivessel disease Patient is having atypical chest pain. However, this episode was more significant and unremitting in nature. Pain started around 2 AM, mid scapular, burning sensation 9/10, no alleviation with ice pack that usually helps. Troponins up trended from 3.75 -> 13.59 -> 29.172, BNP 2583. EKG showed new onset LBBB, ST elevation in lead aVR only indicating likely severe multivessel disease. Chest x-ray negative for pneumonia, enlarged cardiac contour with vascular congestion indicating CHF. Patient started on heparin drip in ED. Also given aspirin loading dose to 325 mg, Lasix 40 IV x 1, ketorolac 30 mg IV x 1, morphine 2 mg IV x 1 -Patient will undergo cardiac cath tomorrow -N.p.o. at midnight -Heparin drip per [facility] protocol, hold at 6 AM pending cardiac cath -Follow-up with echo -Continue aspirin 81 mg -Trend troponins every 6 hours #Hx HFrEF (25-30%) Most recent echo on 05/28/2022. Severe systolic dysfunction, global hypokinesis, estimated EF 25-30%. Difficult to grade NYHA class as patient is wheel chair bound. Sees Dr. Rodriguez outpatient. Currently does not appear to be fluid overloaded on physical exam, lungs clear, trace bilateral lower extremity edema. Home meds: Losartan 100 mg daily, Coreg 3.125 mg daily, Spironolactone 25 mg daily, furosemide 40 mg daily -daily weights -strict I's and O's -low sodium diet (n.p.o. after midnight) -keep potassium >4, mag >2 -daily CBC, CMP -Consider resuming home meds following cardiac cath #Lactic acidosis #Hx fibromyalgia #Polymyalgia rheumatica #Hx Hypothyroidism #Hx HTN Management as per primary team. Plan of care discussed with attending Dr. Reyes. Kameron Joshi MD PGY?1
[2024-05-19 18:03] LABS: Lactate (Lactic Acid) 2.1 mMol/L (0.4-2.0)
--- NOTE | 2024-05-19 18:15 | PC.NURSE ---
PER DR. KUO, HEPARIN TO BE DC @0600AM
[2024-05-19] MEDS: predniSONE 20 MG TABLET PO (19:23)
[2024-05-19 20:59] LABS: Reflex Lactate? Y
[2024-05-19 21:04] LABS: Lactic Acid, 3 HR 2.6 mMol/L (0.4-2.0)
[2024-05-19 21:17] LABS: Partial Thromboplastin Time 46.6 Seconds (22.0-36.0)
[2024-05-19 21:30] LABS: Troponin I 24.045 ng/mL (0.0-0.045)
[2024-05-20] VITALS (17 sets, daily range): BP systolic 117–172; BP diastolic 65–130; PULSE 67–110; RESP 14–20; TEMP 35.9–36.8; O2SAT 96–100; BMI 34.1
[2024-05-20] MEDS: traMADol HCL 50 MG TABLET 25 MG PO (01:58)
[2024-05-20 05:39] LABS: Basophils % (Auto) 0 % (0-2.5); Eosinophils % (Auto) 0 % (0-10); Hematocrit 35.8 % (36.0-46.0); Hemoglobin 11.4 g/dL (12.0-16.0); Immature Granulocytes % (Auto) 1 % (0-0); Immature Granulocytes Auto 0.09 Thou/mm3 (0.00-0.00); Lymphocytes # (Auto) 0.6 Thou/mm3 (1.0-4.8); Lymphocytes % (Auto) 4 % (10-50); Mean Corpuscular HGB Conc 31.8 g/dl (31.0-37.0); Mean Corpuscular Hemoglobin 27.3 pg (25.0-35.0); Mean Corpuscular Volume 86 fL (80-100); Monocytes # (Auto) 0.4 Thou/mm3 (0.0-0.8); Monocytes % (Auto) 3 % (0-12); Neutrophils # (Auto) 15.8 Thou/mm3 (1.8-7.7); Neutrophils % (Auto) 93 % (37-80); Nucleated Red Blood Cell % 0 /100 WBC (0); Platelet Count 227 Thou/mm3 (140-440); RDW Standard Deviation 50.4 fL (36.4-46.3); Red Blood Count 4.18 Miln/mm3 (4.00-5.20); White Blood Count 16.9 Thou/mm3 (3.6-11.0)
[2024-05-20 06:24] LABS: Alanine Aminotransferase 31 U/L (10-49); Albumin, Serum 3.9 gm/dL (3.4-4.8); Albumin/Globulin Ratio 1.8 (1.2-2.2); Alkaline Phosphatase 68 U/L (46-116); Anion Gap 9 (7-16); Aspartate Amino Transferase 87 U/L (0-34); BUN/Creatinine Ratio 29 Ratio (12-20); Bilirubin,Total 0.7 mg/dL (0.3-1.2); Blood Urea Nitrogen 35 mg/dL (9-23); Calcium 9.9 mg/dL (8.3-10.6); Carbon Dioxide 29.1 mMol/L (20.0-31.0); Cardiac Risk Estimate 3.1 RATIO (3.7-5.6); Chloride 102 mMol/L (98-107); Cholesterol 220 mg/dL (132-200); Creatinine (Component) 1.2 mg/dL (0.6-1.3); Globulin 2.2 gm/dL (2.3-3.5); Glucose 178 mg/dL (74-106); HDL Cholesterol 72 mg/dL (40-60); LDL Cholesterol,Calculated 125 mg/dL (0-130); Magnesium 2.1 mg/dL (1.6-2.6); Osmolality,Calculated 291 (275-295); Phosphorous 3.8 mg/dL (2.4-5.1); Sodium 140 mMol/L (136-145); Thyroid Stimulating Hormone 1.57 uIU/mL (0.55-4.78); Total Protein 6.1 gm/dL (5.7-8.2); Triglycerides 117 mg/dL (30-150); eGFR 46 See Note
[2024-05-20 06:30] LABS: Troponin I 17.549 ng/mL (0.0-0.045)
--- NOTE | 2024-05-20 07:27 | PC.NURSE ---
Patient transported to [facility] at [id number]. Patients present.
[2024-05-20] MEDS: LORazepam 2 MG/ML VIAL 1 MG IVP (07:35)
[2024-05-20] MEDS: MORPHINE SULF INJ 10 MG/ML VIAL 4 MG IVP (07:40)
--- NOTE | 2024-05-20 08:45 | PC.NURSE ---
per md order vital signs q 30 min x4 then 1hr after while in [employer].
[2024-05-20] MEDS: NITROGLYCERIN OINT 2% 1 INCH PACKET TOP ×2 (08:55→12:03)
[2024-05-20] MEDS: FUROSEMIDE INJ 10 MG/ML 4ML VIAL 40 MG IVP (08:56)
[2024-05-20] MEDS: carVEDILOL 3.125 MG TABLET 6.25 MG (08:59)
[2024-05-20] MEDS: carVEDILOL 3.125 MG TABLET 6.25 MG PO (09:10)
--- NOTE | 2024-05-20 09:13 | PC.CC ---
Addendum entered by Lonny Cardenas RN 05/20/24 14:00: 1358 called [facility] to inform meat pickler time, left VM. Addendum entered by Lonny Cardenas RN 05/20/24 13:58: 1355 transfer packet is complete with 2 CD's inside including all signatures. Gave transfer packet to Jose Elias SERRANO rider, going along with pt because of heparin drip. Addendum entered by Lonny Cardenas RN 05/20/24 13:57: Late note 1309 number to call for report given to bedside nurse. Addendum entered by Lonny Cardenas RN 05/20/24 13:55: 1350 Went to [facility] and medical records to obtain CD's. Total time spent 30 min. Addendum entered by Lonny Cardenas RN 05/20/24 13:14: [address] [facility] through [employer]. Called [facility], spoke to Leslie and set up the transport. The meat pickler time is 1400. Addendum entered by Lonny Cardenas RN 05/20/24 12:15: 1215 faxed [facility] laboratory operative report to [facility]. Addendum entered by Lonny Cardenas RN 05/20/24 12:13: 1202 received call from Chrissy at [facility]. She confirmed she received TBA. I informed her that I don't have baker laboratory report yet. She stated she had bed for the pt. Pt is accepted by [facility]. Accepting Dr. Quiles. Room 14 Taller 24 or 1424. Call report at [phone]. Addendum entered by Lonny Cardenas RN 05/20/24 11:53: 1150 faxed TBA to [facility]. Addendum entered by Lonny Cardenas RN 05/20/24 11:29: 1006 received call from Chrissy at [facility]. She stated pt is accepted by Dr. Quiles. She wants the TBA and baker laboratory reports faxed over. She will try to get a bed today. Addendum entered by Lonny Cardenas RN 05/20/24 09:38: 0938 faxed clinicals to [facility]. 09 received call from Chrissy at [facility] that she is working on transfer request for the pt. She stated to fax clinicals and she will try to transfer the pt over today. Original Note: [address] Lock that pt needs to be transferred for N-stemi needs CABG. She stated Dr. Kaden Reyes will be reaching out to either [facility] or [facility] himself.
[2024-05-20] MEDS: ASPIRIN EC 81 MG TABEC PO (09:39)
[2024-05-20] MEDS: Heparin/D5w 25K 250 ML Ivpb 25,000 UNIT/250 ML BAG 11.43 UNIT IV (10:20)
[2024-05-20] MEDS: HEPARIN SOD INJ 1000 UNIT/ML VIAL 10 ML 5000 UNIT IV (10:20)
[2024-05-20] MEDS: predniSONE 20 MG TABLET 30 MG PO (10:38)
--- NOTE | 2024-05-20 10:45 | PC.NURSE ---
Patient returned from Cathlab via bed per myself and PC student, Dominga. Patient awake, alert and oriented with no signs of acute distress. Per Cathlab patient is pending transfer to [facility] for open heart surgery. Cban to be removed 05/21/24 at 1000. Tegaderm to be removed 05/23/24.
--- NOTE | 2024-05-20 11:02 | PC.NURSE ---
Patient on heparin drip status post cathlab. Patient at 12u/kg/hr.
--- NOTE | 2024-05-20 11:33 | PC.SS ---
VICE PRESIDENT OF SOFTWARE DEVELOPMENT conducted bedside contact with the patient conduct initial assessment and to discuss discharge planning.? Patient confirmed demographic information.? Patient resides at home with spouse, Bro Roman .? Patient utilizes a wheelchair to assist with mobility.? Patient utilizes home oxygen.? Patient requires some assistance with completion of ADL?s.? Patient identified spouse, Bro Roman; as medical surrogate decision maker.? Patient?s PCP is Pop Woodson.? Patient?s technical artist is Dr. Lee.? Patient utilizes [facility] for medication services.? Patient is pending transfer to [facility] for cardiac procedure.? No further intervention required at this time, social worker school will be available to address any further concerns.? Next of Kin: Bro Abel D/C Plan: Transfer
--- NOTE | 2024-05-20 12:08 | ESOP_ITS ---
RE: LUDY RAYO : 1945 DATE OF OPERATION: 05/20/2024 PROCEDURE PERFORMED: 1. Diagnostic left heart cardiac catheterization, selective coronary angiogram, and left ventriculogram, CPT 68127. 2. Conscious sedation 30 minutes duration. 3. Ultrasound guided access, right radial artery. DIAGNOSES: acute non-ST segment elevation myocardial infarction and severe chest pain. HISTORY AND INDICATIONS: The patient is a 79-year-old lady with a history of hypertension and history of fibromyalgia and previous myocardial infarction presented to the hospital with severe chest tightness and back pain and prolonged episode of chest pain. EKG showed left bundle branch block with mild ST changes and AVR/ST elevation. The patient continued have troponin increase up to started on aspirin and heparin and recommended to have coronary angiogram, cardiac catheterization emergently, possible intervention, and revascularization procedures. DESCRIPTION OF PROCEDURE: The patient was brought to cardiac catheterization laboratory. She was given Ativan 1 mg and morphine 6 mg as well as Versed 2 mg for sedation. Right radial approach was taken. Right radial artery was cannulated by micropuncture technique. A 5- E[place]orean [place] sheath was introduced. Selective right and left coronary angiogram performed a TIG-4 diagnostic catheter, 5-Ecuadorean catheter. Left heart catheterization and LV angiogram performed by same catheter. HEMODYNAMICS: Coronary angiogram showed following findings. The right coronary artery could not be engaged. There is flush occlusion in the ostium, 100% occlusion in the proximal right coronary artery. Distal branches posterior descending artery filling via collateral. Left coronary artery system: There is damping of 30 mm pressure with 80% ostial stenosis in left main coronary artery up to 80% to 90% stenosis followed by 90% stenosis in distal left main coronary artery before bifurcation of circumflex artery. Left anterior descending artery. Left anterior descending artery showed evidence of 95% stenosis, proximal LAD just before the septal branch. There are at least 3 big branches, diagonal branch, circumflex artery as well as large left anterior descending artery, good targets for bypass surgery. Left ventricular angiogram showed evidence of moderate global hypokinesis, ejection fraction 35% to 40%. Left ventricular pressure recorded 130, EDP was 20, aortic pressure 130/70. No gradient across the aortic valve. SUMMARY OF FINDINGS: 1. Severe multivessel coronary artery disease with evidence of chronic total occlusion of the right coronary artery and critical 90% left main coronary artery stenosis and 95% stenosis of proximal left anterior descending artery. 2. Moderate LV dysfunction, EF 35 to 40%. RECOMMENDATIONS: The patient was recommended to have coronary artery bypass graft surgery. The patient was Jehovah's Witnesses. Discussed with Dr. Dustin Quiles at [facility]. We will arrange for a transfer to [facility] later today for possible emergency bypass graft surgery within the next 24 hours. Explained the risks, benefits, and alternatives and the patient agreed to have the operation performed. DT: 10:41:34 TT: 11:48:00 Ref: [id number] - TID: [id number] [facility]
--- NOTE | 2024-05-20 12:30 | PC.NURSE ---
Dr. Heller made aware of patients run of PVCs as noted per ICU MT.
--- NOTE | 2024-05-20 13:00 | PC.NURSE ---
Telephone report given to MAGGIE Wong at [facility]. Transfer pending.
--- NOTE | 2024-05-20 13:57 | ESPR_ITS ---
<Statement entered by Raiza Lock MD - 05/20/24 15:23> I discussed with and supervised my co-resident involved in the care of this patient. I agree with the assessment and plan as documented above. Patient had cardiac cath today which showed multi-vessel disease, total occlusion of the RCA, 90% stenosis of left main coronary artery, and 95% stenosis of proximal LAD artery.. Plan to transfer to [facility] for CABG. Raiza Lock MD PGY-3 Documentation for date of: 05/20/24 Subjective Subjective Interval history: Patient seen and bedside. Underwent cardiac cath this morning by Dr. Reyes. Severe multivessel coronary artery disease with evidence of chronic total occlusion of the RCA, 90% stenosis of left main coronary artery, and 95% stenosis of proximal LAD artery. Patient will need to undergo CABG. Transferse nurse has been contacted. Patient is Jehovah's Witnesses. Attempting to transfer to [facility]. Continue heparin drip, asparin 81mg, coreg 6.25BID, nitro PRN and Lasix per cardiology. Exam Vital Signs Temp Pulse Resp BP Pulse Ox O2 Del Method O2 Flow Rate 97.0 F 67 18 125/87 H 100 Nasal Cannula 3 05/20/24 11:42 05/20/24 12:23 05/20/24 11:42 05/20/24 12:03 05/20/24 11:42 05/20/24 11:42 05/20/24 10:15 Narrative Exam General: Elderly female, laying comfortably, no acute distress, cooperative HEENT: NCAT, No JVD noted. Mucosa moist. Pupils are equal and reactive to light bilaterally, flores facies Cardiovascular: Normal S1 and S2. Regular rate and rhythm. Respiratory: Lungs are clear to auscultation bilaterally. No wheezing or crackles heard. On 2L NC Abdomen: Soft, nontender, not distended, normal bowel sounds. Skin: Warm to touch, dry, facial redness, dried pimple/lesion on left cheek Musculoskeletal: No gross injuries. Able to move all 4 extremities. No pitting edema, atrophic LE Neuro: Alert and oriented x3. No focal neuro deficits. Psych: Normal affect and mood Objective Labs 05/20/24 04:34 05/20/24 04:34 Labs: Laboratory Results - last 24 hr 05/19/24 05/19/24 05/19/24 11:50 15:37 15:56 WBC RBC Hgb Hct MCV MCH MCHC RDW Std Deviation Plt Count Neut % (Auto) Lymph % (Auto) Alfalfa % (Auto) Eos % (Auto) Baso % (Auto) Neut # (Auto) Lymph # (Auto) Alfalfa # (Auto) Eos # (Auto) Baso # (Auto) Immature Gran # (Auto) Absolute Nucleated RBC Immature Gran % Nucleated RBC % PT 10.3 INR 0.9 APTT 20.0 L Sodium Potassium Chloride Carbon Dioxide Anion Gap BUN Creatinine Estim Creat Clear Calc eGFR BUN/Creatinine Ratio Glucose Estimated Ave Glu mg/dL 126 Hemoglobin A1c 6.0 Calculated Osmolality Lactic Acid Calcium Corrected Calcium Phosphorus Magnesium Total Bilirubin AST ALT Alkaline Phosphatase Troponin I 29.172 H* D Total Protein Albumin Globulin Albumin/Globulin Ratio Triglycerides Cholesterol LDL Cholesterol, Calc HDL Cholesterol Cholesterol/HDL Ratio TSH Ur Collection Type Clean Catch Urine Color Lt-Yellow Urine Clarity Clear Urine pH 6.0 Ur Specific [place] 1.014 Urine Protein Negative Urine Glucose (UA) Negative Urine Ketones Negative Urine Blood Negative Urine Nitrite Negative Urine Bilirubin Negative Urine Urobilinogen (Auto) Negative Ur Leukocyte Esterase Positive Urine RBC 1 Urine WBC 2 Ur Squamous Epith Cells 4 Urine Bacteria None Hyaline Casts < 1 Ur Culture Indicated? Not Indicated Urine Opiates Screen Positive A Urine Fentanyl Screen Negative Ur Barbiturates Screen Negative U Amphetamin/Meth Scrn Negative U Benzodiazepines Scrn Negative U Cocaine Metab Screen Negative U Marijuana (THC) Screen Negative 05/19/24 05/19/24 05/20/24 17:55 20:44 04:34 WBC 16.9 H RBC 4.18 Hgb 11.4 L Hct 35.8 L MCV 86 MCH 27.3 MCHC 31.8 RDW Std Deviation 50.4 H Plt Count 227 D Neut % (Auto) 93 H Lymph % (Auto) 4 L Alfalfa % (Auto) 3 Eos % (Auto) 0 Baso % (Auto) 0 Neut # (Auto) 15.8 H Lymph # (Auto) 0.6 L Alfalfa # (Auto) 0.4 Eos # (Auto) 0.0 Baso # (Auto) 0.0 Immature Gran # (Auto) 0.09 H Absolute Nucleated RBC 0.00 Immature Gran % 1 H Nucleated RBC % 0 PT INR APTT 46.6 H D Sodium 140 Potassium 5.0 Chloride 102 Carbon Dioxide 29.1 Anion Gap 9 BUN 35 H Creatinine 1.2 Estim Creat Clear Calc 49.0 L eGFR 46 L BUN/Creatinine Ratio 29 H Glucose [address] Glu mg/dL Hemoglobin A1c Calculated Osmolality 291 Lactic Acid 2.1 H 2.6 H Calcium 9.9 Corrected Calcium 10.0 Phosphorus 3.8 Magnesium 2.1 Total Bilirubin 0.7 AST 87 H ALT 31 Alkaline Phosphatase 68 Troponin I 24.045 H* D 17.549 H* D Total Protein 6.1 Albumin 3.9 Globulin 2.2 L Albumin/Globulin Ratio 1.8 Triglycerides 117 Cholesterol 220 H LDL Cholesterol, Calc 125 HDL Cholesterol 72 H Cholesterol/HDL Ratio 3.1 L TSH 1.57 Ur Collection Type Urine Color Urine Clarity Urine pH Ur Specific [place] Urine Protein Urine Glucose (UA) Urine Ketones Urine Blood Urine Nitrite Urine Bilirubin Urine Urobilinogen (Auto) Ur Leukocyte Esterase Urine RBC Urine WBC Ur Squamous Epith Cells Urine Bacteria Hyaline Casts Ur Culture Indicated? Urine Opiates Screen Urine Fentanyl Screen Ur Barbiturates Screen U Amphetamin/Meth Scrn U Benzodiazepines Scrn U Cocaine Metab Screen U Marijuana (THC) Screen Quality Measures Quality Measures VTE therapy Advance care planning discussed with:: patient Assessment & Plan Assessment Current Active Medications: Generic Name Dose Route Start Last Admin Trade Name Freq PRN Reason Stop Dose Admin Acetaminophen 650 mg 05/20/24 01:44 Acetaminophen 325 Mg Tablet PO 06/18/24 15:03 Q6H PRN Fever >100.3 or pain 1-3 Albuterol 5 mg 05/19/24 16:57 Albuterol Rt 2.5 Mg/0.5 Ml Nebu INH 06/18/24 18:59 Q6HRRT PRN wheezing Protocol Albuterol 2 puff 05/20/24 00:25 Albuterol Inh 8 Gm INH 06/19/24 00:24 Q4HR PRN SHORTNESS OF BREATH OR WHEEZE Protocol Aspirin 81 mg 05/20/24 09:00 05/20/24 09:39 Aspirin Ec 81 Mg Tabec PO 06/19/24 08:59 81 mg DAILY CLARA Administration Carvedilol 6.25 mg 05/20/24 09:00 05/20/24 09:10 Carvedilol 3.125 Mg Tablet PO 06/19/24 08:59 6.25 mg BID CLARA Administration Heparin Sodium/Dextrose 25,000 unit in 250 mls @ 9.992 mls/hr 05/19/24 12:45 05/20/24 10:20 Heparin In D5w Ivpb IV 06/02/24 12:44 12 units/kg/hr .Q24H CLARA 11.43 mls/hr Administration Protocol 10.49 UNITS/KG/HR Nitroglycerin 1 inch 05/20/24 09:00 05/20/24 12:03 Nitroglycerin Oint 2% 1 Inch Packet TOP 06/19/24 08:59 1 inch Q6HR CLARA Administration Ondansetron HCl 4 mg 05/19/24 15:04 05/19/24 15:27 Ondansetron Inj 2 Mg/Ml Inj 2 Ml IV 06/18/24 15:03 4 mg Q6H PRN Administration NAUSEA OR VOMITING Protocol Prednisone 20 mg 05/19/24 17:45 05/19/24 19:23 Prednisone 20 Mg Tablet PO 06/18/24 17:44 20 mg Q48H CLARA Administration Prednisone 30 mg 05/20/24 09:00 05/20/24 10:38 Prednisone 20 Mg Tablet PO 06/19/24 08:59 30 mg Q48H CLARA Administration Fluticasone/Salmeterol 1 puff 05/20/24 00:30 05/20/24 11:07 Fluticasone/Salmeterol 250/50 14 Dose Inh INH 06/19/24 00:29 Not Given BID CLARA Sennosides 1 tab 05/19/24 15:04 Senna Tablet PO 06/18/24 15:03 QDAY PRN constipation Protocol Tramadol HCl 50 mg 05/20/24 00:55 Tramadol Hcl 50 Mg Tablet PO 05/25/24 08:59 Q12HR PRN PAIN SCALE 7-10 (Severe Tramadol HCl 25 mg 05/20/24 01:01 05/20/24 01:58 Tramadol Hcl 50 Mg Tablet PO 05/25/24 08:59 25 mg Q12HR PRN Administration PAIN SCALE 4-6 (Moderate Plan Chitra Roman is a 79 yr female with PMH of fibromyalgia, polymyalgia rheumatica, hypothyroidism, hypertension, wheelchair-bound, asthma, HFrEF (25- 30%), on 2 L oxygen use at night, obesity, chronic neck shoulder pain who presented to ED today due to mid upper back pain that worsened through the night. Pain started around 2 AM, mid scapular, burning sensation 9/10, no alleviation with ice pack that usually helps. Denies any headaches, change in vision, abdominal pain, fevers, palpitations, diaphoresis, or dysuria. Patient admitted for management of NSTEMI type I. #NSTEMI type I #s/p cardiac cath #Multivessel disease Patient is having atypical chest pain. However, this episode was more significant and unremitting in nature. Pain started around 2 AM, mid scapular, burning sensation 9/10, no alleviation with ice pack that usually helps. Troponins up trended from 3.75-13.59, BNP 2583. EKG showed new onset LBBB, no ST elevation/depression. Chest x-ray negative for pneumonia, enlarged cardiac contour with vascular congestion indicating CHF. Dr. Reyes was consulted and patient was started on heparin drip in the ED. Also given aspirin loading dose to 325 mg, Lasix 40 IV x 1, ketorolac 30 mg IV x 1, morphine 2 mg IV x 1 Cath results 05/20/24: Severe multivessel coronary artery disease with evidence of chronic total occlusion of the RCA, 90% stenosis of left main coronary artery, and 95% stenosis of proximal LAD artery. Patient will need to undergo CABG. Transferse nurse has been contacted. Patient is Jehovah's Witnesses. Attempting to transfer to [facility]. -Continue heparin drip, asparin 81mg, coreg 6.25BID, nitro PRN and Lasix per cardiology. ? Follow-up with echo ? Hold any statins due to patient's severe myopathy #Hx HFrEF (25-30%) Most recent echo on 05/28/2022. Severe systolic dysfunction, global hypokinesis, estimated EF 25-30%. Difficult to grade NYHA class as patient is wheel chair bound. Sees Dr. Rodriguez outpatient. Currently does not appear to be fluid overloaded on physical exam. Home meds: -Losartan 100 mg daily ? Coreg 3.125 mg daily ? Spironolactone 25 mg daily -furosemide 40 mg daily -daily weights -strict INOs -low sodium diet -keep potassium >4, mag >2 -daily CBC, CMP #Lactic acidosis Mildly elevated at 2.2 -trend lactate q4hr #Hx fibromyalgia #Polymyalgia rheumatica Patient has history of disease since past 3-4 years. Is followed by landscaping supervisor Dr. Pearson. Patient had been on steroid dose for management sometime ago. Pain and rashes were well-controlled with ice. However recently symptoms have worsened and she has been restarted on the prednisone approximately 3 months ago. -home prednisone 20 mg QOD, 30mg QOD -tramadol 25 mg BID #Hx Hypothyroidism -TSH pending -levothyroxine 125 mg #Hx HTN Patient has been hypertensive since admission. States that it is well controlled at home. -Coreg 3.125 mg BID -Losartan 100 mg daily Health maintenance: Dispo: NSTEMI, pending transfer to [facility] for CABG DVT prophylaxis: heparin drip CODE STATUS: Full code Diet: Cardiac diet The patient's management plan was discussed with my attending physician Dr. Ernst and senior Dr. Lock. Kareen Heller, PGY-1 Attending Provider Attestation/Addendum I have discussed and was present for the essential components of the history, physical examination, diagnosis, and treatment plan with the resident. I agree with the patient's care as documented by the resident and amended herein by me. Dennys Ernst DO. Although this document has been carefully reviewed, there may still be some phonetic and other typographical errors. These errors are purely grammatical due to imperfections in the software program and should not be construed in any way to compromise the substance of the patient's medical care during this visit.
--- NOTE | 2024-05-20 14:24 | ESDS_ITS ---
Planned Discharge Date 05/20/24 DS: Providers Provider Date of admission: 05/19/24 15:04 Primary care physician: Suraj Yi MD Admitting Provider: Barrera Ernst DO Attending Provider on Admission: Barrera Ernst DO Consults: 05/19/24 12:39 Consult to Cardiology Stat Comment: NSTEMI Consulting Provider: Natanael Reyes 05/20/24 02:15 Referral Wound Care Routine Comment: new admit with stage 2 in gluteal cleft 05/20/24 02:16 Referral Nutritional Services Routine Comment: pressure wound 05/20/24 09:12 Referral - Tower Director Routine Service Needed for Transfer: Interventional Cardiology Attending Provider on DC: Kareen Heller MD Discharging Provider: Kareen Heller MD DS: Diagnosis Problem List Completed Was Problem List Reviewed/Reconciled?: Yes Hospital Course Hospital Course Hospital course: Reason for hospitalization: NSTEMI type I Chitra Roman is a 79 yr female with PMH of fibromyalgia, polymyalgia rh eumatica, hypothyroidism, hypertension, wheelchair-bound, asthma, HFrEF (25- 30%), on 2 L oxygen use at night, obesity, chronic neck shoulder pain who presented to [facility] ED on 05/19/24 due to atypical chest pain and mid upper back pain that worsened through the night. Patient stated that the pain was unbearable causing her to wake up. She has experienced this type pain before but not to this extent. Patient was admitted for NSTEMI type I. In ED, patient was hypertensive 160/100 on 2L NC. Labs showed leukocytosis 20, lactic acid slightly elevated 2.2, Phos 4.0, mag 2.1. Troponins peaked at 29. EKG showed new onset LBBB, no ST elevation/depression. Cardiology Dr. Reyes was consulted and patient was started on heparin drip per [facility] protocol in the ED. Also given aspirin loading dose to 325 mg, Lasix 40 IV x 1, ketorolac 30 mg IV x 1, morphine 2 mg IV x 1. Statins were held due to allergy inducing severe myopathy. She underwent cardiac cath morning of 05/20/24. Results showed severe multi vessel coronary artery disease with evidence of chronic total occlusion of the RCA, 90% stenosis of left main coronary artery, and 95% stenosis of proximal LAD artery. [facility] transfer nurse was contacted. Patient was accepted at [facility] for CABG. Per cardiology, patient to continue heparin drip, asparin 81mg, coreg 6.25BID, nitro PRN and Lasix. Patient stated that dental service chief Dr. Pearson is tapering her steroid course. Taking 20 mg even days, 30 mg odd days. Patient is now in stable condition and ready for transfer to [facility]. Hospital Diagnoses: #NSTEMI type I #s/p cardiac cath #Multivessel disease #Hx HFrEF (25-30%) #Lactic acidosis #Hx fibromyalgia #Polymyalgia rheumatica #Hx Hypothyroidism #Hx HTN The patient's management plan was discussed with my attending physician Dr. Ernst and senior Dr. Lock. Kareen Heller MD, PGY-1 Time Spent with Patient Time attestation: Total time spent providing and/or coordinating discharge services: Time spent: Greater than 30 minutes Exam Vital Signs Temp Pulse Resp BP Pulse Ox O2 Del Method O2 Flow Rate 96.8 F 90 18 120/83 97 Nasal Cannula 3 05/20/24 14:07 05/20/24 14:07 05/20/24 14:07 05/20/24 14:07 05/20/24 14:07 05/20/24 14:07 05/20/24 10:15 Discharge Plan Plan Patient Disposition: Xfer Other Facility Pt Being Transferred to: [facility] Patient condition on transfer: Stable Prescriptions/Referrals Prescriptions/Med Rec: No Action levothyroxine 125 mcg Tablet 125 mcg PO QDAY albuterol sulfate 90 mcg/actuation Hfa Aerosol Inhaler 2 puff INHALATION Q6H PRN (Reason: Shortness Of Breath Or Wheezing) fluticasone propion-salmeterol 250-50 mcg/dose Blister With Device 1 inh INHALATION BID furosemide 40 mg tablet 40 mg PO QDAY prednisone 20 mg tablet 20 mg PO EVERYOTHERDAY Patient Comments: TAKE 1 TABLET BY MOUTH EVERY DAY tramadol 50 mg tablet 50 mg PO Q12H PRN (Reason: pain) Patient Comments: TAKE 1 TABLET TWICE DAILY FOR PAIN sacubitril-valsartan [Entresto] 49-51 mg tablet 1 tab PO BID meclizine 50 mg tablet 50 mg PO QDAY clopidogrel 75 mg tablet 75 mg PO QDAY prednisone 10 mg tablet 30 mg PO EVERYOTHERDAY Patient Comments: TAKE 3 TABLETS BY MOUTH ONCE DAILY DIRECTED. Rx Instructions: alternate days between 20 and 30mg carvedilol [Coreg] 3.125 mg tablet 3.125 mg PO BID Rx Instructions: must administer with a meal/food Referrals: Suraj Yi MD [Primary Care Provider] - Patient/Caregiver Discharge Instructions Education Materials: Eating Heart-Healthy Foods, Cardiac Cath Transradial Print Language: Ecuadorean Stand Alone Forms: Stacy Award Info., Patient Portal Info Letter Discharge Order Discharge Orders: Discharge (Routine); Ordered 05/20/24 Ordered By: Kareen Heller Quality Discharge Quality Measures VTE prophylaxis MD Attestestation MD Attestation I have discussed and was present for the essential components of the discharge history, physical examination, diagnosis, and discharge treatment plan with the resident. I agree with the patient's discharge care as documented by the resident and amended herein by me. Dennys Ernst DO. Patient is to be transferred to tertiary center for higher level of care and CABG due to severe multivessel cardiovascular disease as discovered on coronary angiogram this morning. See resident note above for additional details. Although this document has been carefully reviewed, there may still be some phonetic and other typographical errors. These errors are purely grammatical due to imperfections in the software program and should not be construed in any way to compromise the substance of the patient's medical care during this visit.
--- NOTE | 2024-05-20 14:33 | PC.NURSE ---
MAGGIE Burdick accompanied patient on transfer to [facility].
== END 2024-05-20 14:05 | disposition other institution (70) | DRG 281 ==
LOC: SERX 14:38 → SERHOLD 16:25 → S2NX 23:10
PROVIDERS: Internal Medicine Cardiovascular Disease; Student in an Organized Health Care Education/Training Program; Admitting Provider Student in an Organized Health Care Education/Training Program; Emergency Provider Emergency Medicine; PCP Internal Medicine; Visit Provider Student in an Organized Health Care Education/Training Program
PROC: 4A023N7 Measurement of Cardiac Sampling and Pressure, Left Heart, Percutaneous Approach (ICD-10-PCS; principal; 2024-05-20 07:30)
DX: I21.4 Non-ST elevation (NSTEMI) myocardial infarction (principal); E87.20 Acidosis, unspecified; I50.22 Chronic systolic (congestive) heart failure; I11.0 Hypertensive heart disease with heart failure; M79.7 Fibromyalgia; J45.909 Unspecified asthma, uncomplicated; M35.3 Polymyalgia rheumatica; I25.10 Atherosclerotic heart disease of native coronary artery without angina pectoris; E03.9 Hypothyroidism, unspecified; E66.9 Obesity, unspecified; I44.7 Left bundle-branch block, unspecified; M25.519 Pain in unspecified shoulder; Z68.34 Body mass index [BMI] 34.0-34.9, adult; F41.9 Anxiety disorder, unspecified; I25.2 Old myocardial infarction; Z79.02 Long term (current) use of antithrombotics/antiplatelets; Z79.82 Long term (current) use of aspirin; Z79.899 Other long term (current) drug therapy; Z99.3 Dependence on wheelchair
CPT/HCPCS: 36415; 71045; 80053; 80061; 80307; 81001; 83036; 83605; 83690; 83735; 83880; 84100; 84443; 84484; 85025; 85610; 85652; 85730; 86140; 93306; 99152; 99153; A4649; C1769; C1887; C1894; J0171; J0461; J1643; J1644; J1885; J1940; J2060; J2250; J2270; J2310; J2371; J2405; J3010; J3490; J7512; Q9967; A9270; J2305

== ENCOUNTER 2024-06-29 01:20 | Inpatient (IN) | payer MEDICARE, SELFPAY ==
[2024-06-29] VITALS (12 sets, daily range): BP systolic 97–143; BP diastolic 55–78; PULSE 58–108; RESP 11–24; TEMP 36.1–37.4; O2SAT 95–99; BMI 32.5
--- NOTE | 2024-06-29 02:04 | EDNOTE_ITS ---
ED Chest Pain RME/HPI General Chief Complaint: Chest Pain Stated Complaint: CHEST PAIN Time Seen by Provider: 06/29/24 01:21 Arrival date/time: 06/29/24 01:20 RME / HPI RME / HPI narrative: This section includes all my notes and documentations, including HPI, PE, and ED course. Jon Bahena MD HPI: 79yo female with a history of fibromyalgia, polymyalgia rheumatica, hypothyroidism, hypertension, wheelchair-bound, asthma, HFrEF (25-30%), on 2 L oxygen use at night BIBA from home presents to the ED for a chief complaint of chest pain x 2 hours [employer]. Patient states she started having significant chest pain when she woke up from a nap, reporting she took Ativan to try to improve her symptoms. She states she continued to have significant chest pain, so she called 911 to come in for evaluation. EMS administered sublingual nitroglycerin and aspirin en route with improvement of symptoms. Patient denies any cough, fever, chills or any other associated symptoms. N[place] Up is Dr. Mckenzie. No other complaints reported. ROS: All negative except as documented in HPI. Physical Exam: General: Alert and oriented. No acute distress when remaining still. Eyes: Conjunctivae and lids clear. ENT: No nasal congestion. Neck: Supple. Heart: RRR. Lungs: No respiratory distress. Good air movement. No rhonchi, wheezing, rales. Abdomen: Soft and nontender. Legs: No clubbing, cyanosis, edema. Skin: Warm and dry. Neuro: Alert and oriented X 3. I reviewed all diagnostic test results. My interpretation of the EKG is left BBB, no change from previous EKG. My interpretation of the chest x-ray is no acute findings. Blood tests and urine tests remarkable for troponin 2.710. At this point, diagnoses include NSTEMI. Treatment here included ASA and heparin. Patient remained stable. I discussed the case with our postage machine operator and our hospitalist. About the presentation and exam and diagnostics and treatments here. And need of further care in the hospital. Will accept the patient. Jon Bahena MD Related Data Home Medications ?Medication ?Instructions ?Recorded ?Confirmed albuterol sulfate 90 mcg/actuation 2 puff inhalation Q 6H PRN 05/27/22 05/19/24 aerosol inhaler Shortness Of Breath Or Wheez ing fluticasone 250 mcg-salmeterol 50 1 inh inhalation BID 05/27/22 05/19/24 mcg/dose blistr powdr for inhalation levothyroxine 125 mcg tablet 125 mcg PO QDAY 05/27/22 05/19/24 furosemide 40 mg tablet 40 mg PO QDAY 05/28/2205/19 clopidogrel 75 mg tablet 75 mg PO QDAY 05/19/2405/19 meclizine 50 mg tablet 50 mg PO QDAY 05/19/2405/19 prednisone 10 mg tablet 30 mg PO EVERYOTHERDAY 05/1905/19/24 prednisone 20 mg tablet 20 mg PO EVERYOTHERDAY 05/1905/19/24 sacubitril 49 mg-valsartan 51 mg 1 tab PO BID 05/19/24 05/19/24 tablet (Entresto) tramadol 50 mg tablet 50 mg PO Q12H PRN pain 05/1905/19/24 carvedilol 3.125 mg tablet (Coreg) 3.125 mg PO BID 05/20/24 Allergies Allergy/AdvReac Type Severity Reaction Status Date / Time potassium Allergy Rash Verified 06/29/24 01:24 [id number] Reductase AdvReac Severe Myalgia Verified 06/29/24 01:24 Inhibitor Review of Systems Review of Systems Systems Reviewed: All systems reviewed, normal except as documented Past Medical History Past Medical History NEUROLOGIC: Positive Dementia; Negative Neurological Disorders, Cerebrovascular Accident, Transient Ischemic Attacks (TIA), Alzheimer's Disease, Parkinson's Disease, Brain Tumor, Meningitis, Seizures, Epilepsy, Multiple Sclerosis, Cerebral Palsy, Amyotrophic Lateral Sclerosis (ALS/Nila Gehrig's), Guillain-Amidon Syndrome, Spina Bifida, Paralysis, Peripheral Neuropathy, Ram's Palsy, Subdural Hematoma, Migraine, Head Trauma, Spinal Cord Injury or Traumatic Brain Injury CARDIAC: Positive Cardiac Disorders, Coronary Artery Disease, Hypercholesterolemia, Congestive Heart Failure and Hypertension; Negative Myocardial Infarction, Cardiac Arrhythmia, Atrial Fibrillation, Angina, Heart Murmur, Atherosclerotic Heart Disease, Peripheral Vascular Disease, Aneurysm, Congenital Heart Disease, Valvular Heart Disease, Rheumatic Fever, Cardiomyopathy, Pericarditis, Cellulitis, Hypotension or Varicose Veins RESPIRATORY: Positive Asthma and Pneumonia; Negative Chronic Obstructive Pulmonary Disease (COPD), Emphysema, Pulmonary Fibrosis, Tuberculosis, Pulmonary Embolism or Sleep Apnea GASTROINTESTINAL: Positive Gall Bladder Disease, Diverticulitis, Hemorrhoids, Gastroesophageal Reflux Disease and Obesity; Negative Gastrointestinal Disorders, Cirrhosis, Pancreatitis, Gastrointestinal Bleed, Esophageal Varices, David's Esophagus, Colitis, Ulcerative Colitis, Diverticulosis, Ulcer, Colorectal Cancer, Irritable Bowel, Crohn's Disease, Obstructive Bowel or Hiatal Hernia GENITOURINARY: Negative Genitourinary Disorders, Renal Disease, Kidney Stones, Polycystic Kidney Disease, Neurogenic Bladder, Inguinal Hernia, Dialysis or Prostate Cancer REPRODUCTIVE: Negative Breast Cancer, Endometriosis, Genital Herpes, Gonorrhea, Pelvic Inflammatory Disease, Previous Pregnancies, Syphilis or Uterine Prolapse MUSCULOSKELETAL: Positive Musculoskeletal Disorders, Arthritis and Fibromyalgia (polymyalgia rheumatica); Negative Muscular Dystrophy, Myasthenia Gravis, Marfan's Syndrome, Rheumatoid Arthritis, Osteoporosis, Degenerative Disk Disease, Gout, Scoliosis, Carpal Tunnel Syndrome, Fractures, Degenerative Joint Disease, Osteomyelitis or Poliovirus ENT: Negative Cataracts, Glaucoma, Blind, Retinal Detachment, Macular Degeneration, Ear Infection, Deafness, Head Trauma or Eye Prosthesis ENDOCRINE: Positive Hypothyroidism; Negative Endocrine Disorders, Diabetes Mellitus Type 1, Diabetes Mellitus Type 2, [place]'s Syndrome, Lawrence's Disease, Hyperthyroidism, Parathyroid Disease, Pituitary Disease, Systemic Lupus Erythematosus, Syndrome of Inappropriate Antidiuretic Hormone (SIADH), Adrenal Disease or Graves' Disease HEMATOLOGIC: Positive Anemia; Negative Blood Disorders, Leukemia, Hemophilia, Thalassemia, Sickle Cell Disease or Clotting Problems PSYCHO/SOCIAL: Positive Anxiety; Negative Psychiatric Problems, Recreational Drug Use, Bipolar Disorder, Depression, Behavior Problems, Self-Mutilation, Attention Deficit Disorder, Attention Deficit Hyperactivity Disorder, Depression, Post Traumatic Stress Disorder or Eating Disorder OTHER HISTORY: Positive Hospitalization, Autoimmune Disease, Shingles and Measles; Negative Down Syndrome, Autism, Developmental Delay, Falls, Blood Transfusions, Blood Transfusion Reaction, Organ Transplant, Radiation Therapy, Hyperbaric Therapy, MRSA, Vancomycin-Resistant Enterococci, Human Immunodeficiency Virus (HIV), Chicken Pox, Mumps, Rubella (Spanish Measles), Pertussis, Clostridium Difficile, Cancer, Breast Cancer, Cervical Cancer, Colorectal Cancer, Ovarian Cancer or Prostate Cancer Family History FAMILY HISTORY: Positive Family Respiratory Disorders and Family Cardiac Disorders; Negative Family Psychiatric Problems, Family Gastrointestinal Problems, Family Cancer or Family Anesthesia Reaction Surgical History SURGICAL: Negative Cardiac Surgery, Open Heart Surgery, Coronary Artery Bypass Graft, Valve Replacement, Vascular Surgery, Coronary Stent, Cardiac Catheterization, Pacemaker, Angiogram, Auto Implanted Cardiovert Defib, Carotid Endarterectomy, Endocrine Surgery, Thyroidectomy, Ear Surgery, Tympanostomy Tube, Eye Surgery, Nose Surgery, Oral Surgery, Tonsillectomy, Adenoidectomy, Cochlear Implant, Corneal Transplant, Throat Surgery, Abdominal Surgery, Tracheostomy, Gastric Bypass Surgery, Gastrostomy, Bowel Surgery, Nephrectomy, Transurethral Resection, Joint Replacement, Amputation, Open Reduction Internal Fixation, Arthroscopy, Neurologic Surgery, Brain Shunt, Mastectomy, Lumpectomy, Hysterectomy, Tubal Ligation, Section or Organ Transplant Social History SMOKING STATUS: Never smoker ED Exam Narrative Physical exam: As noted in HPI. Course Course Course Narrative: CXR is ordered for determining the etiology of chest pain. Quality Measures none Orders Category Date Time Status COVID-19 Screening Questionnaire NOW Care 06/29/24 05:32 Active Decision to Admit X1 Care 06/29/24 05:32 Completed EKG (ED ONLY) *Do not use* NOW Care 06/29/24 01:33 Completed Consult to Cardiology Stat Cons 06/29/24 05:32 Ordered EKG (ED Only) Stat Exams 06/29/24 01:33 Ordered BNP [B-Type Natriuretic Peptide] Stat Lab 06/29/24 01:42 Completed CBC Stat Lab 06/29/24 01:42 Completed CMP [Comprehensive Metabolic Panel] Stat Lab 06/29/24 01:42 Completed Magnesium Stat Lab 06/29/24 01:42 Completed PT [Prothrombin Time with INR] Stat Lab 06/29/24 04:45 Completed PTT [Partial Thromboplastin Time] Stat Lab 06/29/24 04:45 Completed Troponin I Stat Lab 06/29/24 01:42 Completed Troponin I Stat Lab 06/29/24 04:43 Completed Aspirin Chew Med 06/29/24 05:31 Discontinued 324 mg PO X1 ONE Heparin Inj Med 06/29/24 05:31 Discontinued 4,000 unit IV X1 ONE Heparin/D5w 25K 250 ML Ivpb [Heparin in D5w Ivpb] Med 06/29/24 05:45 Active 25,000 unit in 250 ml IV 9.259 units/kg/hr Vital Signs Vital signs: Vital Signs Temperature 99.4 F 06/29/24 01:24 Pulse Rate 108 H 06/29/24 01:24 Respiratory Rate 20 06/29/24 01:24 Blood Pressure 109/68 06/29/24 01:24 Pulse Oximetry (%) 95 06/29/24 01:24 Chest Pain MDM Narrative MDM Narrative:: Scribe Attestation: 06/29/24 Flavia Love am scribing for and in the presence of Dr. Bahena. Patient data External records reviewed:: [facility] previous records (Per chart review, patient was admitted here on 05/19/24 for NSTEMI.) Clinical information provided by:: patient Social determinants that could affect healthcare access:: none Patient has the following chronic illnesses:: fibromyalgia, polymyalgia rheumatica, hypothyroidism, hypertension, wheelchair- bound, asthma, HFrEF (25-30%), on 2 L oxygen use at night How is presenting disease/condition affected by chronic disease/condition?: exacerbated by Evaluation data The following diagnostics were reviewed and interpreted by me:: lab results, radiology exam(s) and EKG tracing(s) (My interpretation of the EKG is: Sinus tac hycardia (105 bpm) with left BBB and PVCs. Jon Bahena MD) Lab and/or radiology exams considered but not ordered:: none Interpretation Summary: NSTEMI Medications / Prescriptions Medications or Prescriptions considered but not ordered:: none Medication administrations:: Medication Administration History Acetaminophen (Acetaminophen 325 Mg Tablet) 650 mg PO Q6H PRN PRN Reason: Fever >101.5 Stop: 07/29/24 05:44 Alprazolam (Alprazolam 0.25 Mg Tablet) 0.5 mg PO BID PRN PRN Reason: ANXIETY Stop: 07/04/24 05:49 Aspirin (Aspirin Ec 81 Mg Tabec) 81 mg PO QDAY [facility] Stop: 07/30/24 08:59 Clopidogrel Bisulfate (Clopidogrel Bisulfate 75 Mg Tablet) 75 mg PO QDAY [facility] Stop: 07/29/24 08:59 Last Admin: 06/29/24 09:28 Dose: 75 mg Documented By: MARI Dextrose (Dextrose 50%-Water Inj 50 Ml Syringe) 25 ml IV Q15MIN PRN PRN Reason: BG 50-70 responsive npo pt Stop: 07/29/24 05:55 Dextrose (Dextrose 50%-Water Inj 50 Ml Syringe) 50 ml IV Q15MIN PRN PRN Reason: BG <50 OR BG <70 & pt unresponsive Stop: 07/29/24 05:55 Furosemide (Furosemide 20 Mg Tablet) 20 mg PO QAM [facility] Stop: 07/29/24 08:59 Last Admin: 06/29/24 09:24 Dose: 20 mg Documented By: MARI Glucagon (Glucagon Inj 1 Mg Vial) 1 mg IM Q15MIN PRN PRN Reason: BG <70, and no IV access Heparin Sodium/Dextrose (Heparin In D5w Ivpb) 25,000 unit in 250 mls @ 10.084 mls/hr IV .Q24H [facility]; Protocol Stop: 07/13/24 05:44 Last Titration: 06/29/24 14:41 Dose: 11.259 units/kg/hr, 12.262 mls/hr Documented By: SHEILA Co-signed By: MARI Admin: 06/29/24 07:40 Dose: 9.259 units/kg/hr, 10.084 mls/hr Documented By: MARI Co-signed By: SHEILA Insulin Human Lispro (Insulin Lispro (Admelog) 1 Unit/0.01 Ml Unit) 0 unit SC [facility]; Protocol Stop: 07/29/24 07:29 Last Admin: 06/29/24 18:13 Dose: 1 unit Documented By: MARI Co-signed By: CECE Admin: 06/29/24 13:02 Dose: Not Given Documented By: MARI Non-Admin Reason: Per Protocol Admin: 06/29/24 07:34 Dose: Not Given Documented By: SHEILA Non-Admin Reason: Per Protocol Isosorbide Mononitrate (Isosorbide Er Mononitrate 30 Mg Tabcr) 30 mg PO QDAY [facility] Stop: 07/29/24 08:59 Last Admin: 06/29/24 09:29 Dose: 30 mg Documented By: MARI Levothyroxine Sodium (Levothyroxine Sodium 125 Mcg Tablet) [facility] Stop: 07/29/24 05:59 Last Admin: 06/29/24 06:29 Dose: 125 mcg Documented By: GERONIMO Metoprolol Succinate (Metoprolol Succinate Xl 25 Mg Tabcr) 25 mg PO QDAY [facility] Stop: 07/29/24 08:59 Last Admin: 06/29/24 09:24 Dose: 25 mg Documented By: MARI Pantoprazole Sodium (Pantoprazole 40 Mg Tablet) 40 mg PO QDAY [facility] Stop: 07/29/24 08:59 Last Admin: 06/29/24 09:27 Dose: 40 mg Documented By: MARI Prednisone (Prednisone 5 Mg Tablet) 10 mg PO QAM [facility] Stop: 07/29/24 08:59 Last Admin: 06/29/24 09:26 Dose: 10 mg Documented By: MARI Pregabalin (Pregabalin 75 Mg Capsule) 75 mg PO BID [facility] Stop: 07/29/24 08:59 Last Admin: 06/29/24 21:11 Dose: 75 mg Documented By: Admin: 06/29/24 09:29 Dose: 75 mg Documented By: MARI Sacubitril/Valsartan (Sacubitril 24 Mg/Valsartan 26 Mg Tablet) 1 tab PO BID [facility] Stop: 07/29/24 08:59 Last Admin: 06/29/24 21:11 Dose: 1 tab Documented By: Admin: 06/29/24 09:31 Dose: 1 tab Documented By: MARI Tramadol HCl (Tramadol Hcl 50 Mg Tablet) 50 mg PO Q12HR [facility] Stop: 07/04/24 08:59 Last Admin: 06/29/24 21:11 Dose: 50 mg Documented By: Admin: 06/29/24 09:26 Dose: 50 mg Documented By: MARI Discontinued Medications Aspirin (Aspirin 81 Mg Chew) 324 mg PO X1 ONE Stop: 06/29/24 05:32 Last Admin: 06/29/24 05:47 Dose: 324 mg Documented By: GERONIMO Heparin Sodium (Porcine) (Heparin Sod Inj 5000 Unit/Ml Vial) 4,000 unit IV X1 ONE; Protocol Stop: 06/29/24 05:32 Last Admin: 06/29/24 07:39 Dose: 4,000 unit Documented By: MARI Co-signed By: SHEILA Heparin Sodium (Porcine) (Heparin Sod Inj 5000 Unit/Ml Vial) 2,000 unit IVP X1 ONE Stop: 06/29/24 14:41 Last Admin: 06/29/24 14:51 Dose: 2,000 unit Documented By: SHEILA Co-signed By: MARI [place], patient only received ASA and heparin. Consultations Consultation(s) initiated? (list below): Yes Consultation #1 (Physician, Specialty, Details): Discussed case with Dr. Mckenzie from cardiology regarding consultation. Discussed patients ED course, exam findings, labs, and radiology results. States to admit the patient and agrees to consult. Time: 05:26 Diagnosis Chest Pain Differential Diagnosis: pneumothorax, stable angina, unstable angina pectoris, atypical chest pain, st elevation myocardial infarction, costochondritis and other (Anxiety, musculoskeletal chest pain) Most likely diagnosis given after review of the tests above:: NSTEMI Admission Indicated Admission indicated?: indicated Explain why admission is indicated or not indicated:: NSTEMI Admission Request Was there a request for admission?: Yes Admission Attestation Admission request attestation: Discussed case with Hospitalist service regarding admission. Discussed patients ED course, exam findings, labs, and radiology results. The Hospitalist [agrees] to accept the patient for admission. Disposition Plan Disposition Plan: Admit Discharge Plan Plan Patient Disposition: Admit Acute Care w/in Hospital Problem List Clinical Impression: Non-STEMI (non-ST elevated myocardial infarction)
[2024-06-29 02:35] LABS: Basophils # (Auto) 0.1 Thou/mm3 (0.0-0.2); Basophils % (Auto) 0 % (0-2.5); Eosinophils # (Auto) 0.2 Thou/mm3 (0.0-0.5); Eosinophils % (Auto) 1 % (0-10); Hematocrit 37.8 % (36.0-46.0); Hemoglobin 12.2 g/dL (12.0-16.0); Immature Granulocytes % (Auto) 1 % (0-0); Immature Granulocytes Auto 0.13 Thou/mm3 (0.00-0.00); Lymphocytes # (Auto) 0.6 Thou/mm3 (1.0-4.8); Lymphocytes % (Auto) 5 % (10-50); Mean Corpuscular HGB Conc 32.3 g/dl (31.0-37.0); Mean Corpuscular Volume 87 fL (80-100); Monocytes # (Auto) 0.6 Thou/mm3 (0.0-0.8); Monocytes % (Auto) 4 % (0-12); Neutrophils # (Auto) 12.7 Thou/mm3 (1.8-7.7); Neutrophils % (Auto) 89 % (37-80); Nucleated Red Blood Cell % 0 /100 WBC (0); Platelet Count 231 Thou/mm3 (140-440); RDW Standard Deviation 54.4 fL (36.4-46.3); Red Blood Count 4.36 Miln/mm3 (4.00-5.20); White Blood Count 14.3 Thou/mm3 (3.6-11.0)
[2024-06-29 03:39] LABS: Alanine Aminotransferase 34 U/L (10-49); Albumin, Serum 4.2 gm/dL (3.4-4.8); Albumin/Globulin Ratio 1.7 (1.2-2.2); Alkaline Phosphatase 71 U/L (46-116); Anion Gap 10 (7-16); Aspartate Amino Transferase 49 U/L (0-34); B-Type Natriuretic Peptide 730 pg/mL (0-100); BUN/Creatinine Ratio 31 Ratio (12-20); Bilirubin,Total 0.5 mg/dL (0.3-1.2); Blood Urea Nitrogen 40 mg/dL (9-23); Calcium 10.5 mg/dL (8.3-10.6); Calcium (Corrected) 10.5 mg/dL (8.5-10.1); Carbon Dioxide 25.2 mMol/L (20.0-31.0); Chloride 104 mMol/L (98-107); Creatinine (Component) 1.3 mg/dL (0.6-1.3); Estimated Creatinine Clearance 44.1 mL/min (>60); Globulin 2.5 gm/dL (2.3-3.5); Glucose 193 mg/dL (74-106); Magnesium 1.8 mg/dL (1.6-2.6); Osmolality,Calculated 292 (275-295); Potassium 5.1 mMol/L (3.4-5.1); Sodium 139 mMol/L (136-145); Total Protein 6.7 gm/dL (5.7-8.2); eGFR 42 See Note
[2024-06-29 05:24] LABS: Troponin I 14.257 ng/mL (0.0-0.045)
[2024-06-29] MEDS: ASPIRIN 81 MG CHEW 324 MG PO (05:47)
--- NOTE | 2024-06-29 05:47 | XR_ITS ---
Examination: AP chest single view Technique one AP portable upright chest single view Exam done: June 29, 2024 0452 hours Comparison May 19, 2024 INDICATIONS: Admission chest x-ray, chest pain today Findings 1 Mild enlargement cardiac contour Mild ectasia of thoracic aorta. Mild vascular congestion. No lobar pneumonia No moody pulmonary edema Significant osteopenia IMPRESSION: No pneumonia or pulmonary edema
--- NOTE | 2024-06-29 05:59 | EVENTNT_ITS ---
Documentation for date of: 06/29/24 Event Note Event Note: A 79-year-old female presented to the Emergency Department with the chief complaint of chest pain. The patient reported the onset of chest pain while attempting to get out of her hospital bed to use the restroom. She described the pain as radiating across her anterior chest and the upper part of her back, extending into the muscles of both arms. She denied associated symptoms such as diaphoresis or nausea. She noted that this episode resembled her prior heart attacks. The patient was previously hospitalized in May and transferred to [facility] for evaluation for coronary artery bypass surgery. However, the procedure was deemed too high risk due to complete occlusion of the left coronary artery and 95% occlusion of the right. She declined surgery after discussing potential outcomes and recovery risks. She also noted missing her Lyrica dose over the weekend due to pharmacy supply issues and received an expensive medication injection for cholesterol management. At the time of evaluation, her chest pain had resolved. The patient has a history of fibromyalgia, polymyalgia rheumatica, hypothyroidism, hypertension, asthma, heart failure with reduced ejection fraction (30-35%), obesity, and chronic neck and shoulder pain. She is wheelchair-bound and uses 2 liters of oxygen at night. Surgical history includes cholecystectomy. Current medications include allopurinol, aspirin, vitamin D, clopidogrel, Entresto, inhaled medications, furosemide 20 mg daily, pantoprazole, prednisone (20 mg QOD), pregabalin, nitroglycerin, levothyroxine, and metoprolol. She lives in [place] with her , is unemployed, and denies smoking, alcohol, or recreational drug use. Family history is notable for myocardial infarction and hypertension in both parents. In the Emergency Department, vital signs were recorded as 99.4, 108, 20, and 109/68. Laboratory results revealed white blood cell count 14.3, hemoglobin 12.2, platelets 231, sodium 139, potassium 5.1, chloride 104, creatinine 1.3, and glucose 193. Troponin levels desiree from 2.71 to 14.257. B-type natriuretic peptide was 730. Electrocardiogram showed left bundle branch block. A prior echocardiogram demonstrated a mildly dilated left ventricle with global hypokinesis and an estimated ejection fraction of 30?35%. Cardiology was consulted. A heparin drip was initiated, and the patient was admitted for further management. Non-ST Elevation Myocardial Infarction #Assessment: - Chest pain with radiation to chest, back, and arms; resolved on presentation. - Elevated troponins (2.71 ? 14.257); ECG with LBBB. - Known CAD: LCA occlusion, 95% RCA stenosis; prior CABG deemed too high-risk. - HFrEF (EF 30?35%), HTN, obesity, polymedicated. - BNP elevated (730); baseline renal impairment (Cr 1.3). #Plan: - Continue ACS protocol: Heparin drip, dual antiplatelet therapy (aspirin + clopidogrel). - History to statin allergy - Cardiology to guide further ischemic evaluation and management, considering poor surgical candidacy; consider medical optimization - Monitor cardiac enzymes, ECGs, and symptoms for progression. - Adjust diuretic therapy based on volume status; monitor electrolytes and renal function. - Evaluate oxygen needs; maintain SpO? >90%. Heart Failure with Reduced Ejection Fraction (HFrEF) #Assessment: - EF 30?35% on prior echocardiogram; global hypokinesis. - Comorbid HTN, CAD, obesity. - Currently on Entresto, metoprolol, and furosemide. #Plan: - Continue guideline-directed medical therapy: Entresto, metoprolol, furosemide. - Monitor volume status and adjust diuretic dosing accordingly. - Monitor renal function and electrolytes closely (Cr 1.3, K? 5.1). - Evaluate for GDMT optimization: Consider adding MRA (e.g., spironolactone) and SGLT2 inhibitor (e.g., dapagliflozin or empagliflozin) once clinically stable. - Cardiology to assist with medication titration and long-term management strategy. - Reinforce dietary sodium and fluid restriction; provide HF self-care education. History of Hypothyroidism #Assessment: - Chronic hypothyroidism; TSH within normal limits (May 2024). - On stable dose of levothyroxine. #Plan: - Resume home medication: levothyroxine 125 mcg History of Hypertension #Assessment: - Long-standing HTN; well-controlled on current regimen. - On metoprolol and Entresto. #Plan: - Resume home medication
[2024-06-29 06:03] LABS: Partial Thromboplastin Time 24.2 Seconds (22.0-36.0); Prothrombin Time 10.6 Seconds (9.0-12.2)
--- NOTE | 2024-06-29 06:20 | PD.RESHP ---
Documentation for date of: 06/29/24 HPI History of Present Illness Chief complaint: Chest pain History of present illness: HPI: A 79-year-old female patient Jehovah witness with past medical history polymyalgia rheumatica, hypothyroidism, hypertension, wheelchair-bound, asthma, HFrEF last EF on May 2024 was 35 to 40% on angiogram, asthma on 2 L of oxygen, obesity, chronic neck pain presented to the ED due to acute onset of burning chest pain that started at 1:30 AM today. Patient mentioned that she thought it was polymyalgia rheumatic and pain in which sometimes use ice to put it on the site of the pain which relieve her pain. She tried to do the same method on her chest however the pain was not resolving that is when she knew that she might have the pinning of heart attack. She mentions that the pain also located in her back with no radiation. Denied any shortness of breath, palpitation, and denied any loss of consciousness. After they called the EMT patient was given 1 sublingual nitroglycerin and 2 pills of aspirin. Of note patient was admitted in May 19, 2024 because of similar symptoms in which Dr. Reyes performed an angiogram and it showed chronic total occlusion of the right coronary artery and critical 90% of the left main coronary artery stenosis, 95% stenosis of the proximal left anterior descending artery. At that time patient was transferred to [facility] for multivessel bypass surgery. When the patient was evaluated by cardiothoracic surgeon he mentions to the patient that the surgery is getting very high risk on long-term recovery time. Patient at that time elected to do conservative route and she was discharged from the hospital and following up with Dr. Reyes. Last visit was last week in which she got a cholesterol-lowering injection . On review of other system patient denied any other symptoms. Home medications: Pending med reconciliation ED course: At the ED patient was vitally stable except heart rate was 108, saturating 95% on her baseline oxygen of O2 2 L, her CBC was only significant for mild leukocytosis of 14.3, platelets 231, CMP was only significant for serum creatinine of 1.3 which is her baseline, BUN 40, glucose of 193, calcium of 10.5, troponin 2.710 up trended to 14.257 within 3 hours. BNP was 730, last BMP 4 the patient was 2583. EKG was done and showed left bundle branch block. In review of previous EKGs it was noticed that the patient had the first left bundle branch block we have in her chart when she was admitted to the hospital last month. No ST segment changes was noted in the recent EKG. Patient was given 1 dose of aspirin at the ED 324 mg p.o. x 1. PMH: As above PSH: Cholecystectomy FamHx: Both mother and father had history of IA with stents, hypertension Social: Unemployed, lives in [place] with . Denies smoking, drinking. Allergies: potassium (rash), Statins (myopathy) Review of Systems Review of Systems Systems Reviewed: All systems reviewed, normal except as documented Exam Vital Signs Temp Pulse Resp BP Pulse Ox O2 Del Method O2 Flow Rate 98 F 64 18 97/61 98 Nasal Cannula 2 06/29/24 04:24 06/29/24 04:24 06/29/24 04:24 06/29/24 04:24 06/29/24 04:24 06/29/24 04:06/29/24 04:24 Narrative Exam GEN: AOx3, able to speak full sentences. HEENT: NC/AC, oral mucosa moist, neck supple. CVS: RRR, S1-S2 present, no murmurs appreciated. RESP: CTAB. GI: Soft,non distended, non tender, NBS. MSK: Able to move all 4 limbs, trace lower extremity edema. SKIN: Warm and dry. [employer]: CN II-XII and Sensation grossly intact. Results: Labs 06/29/24 01:42 06/29/24 01:42 Labs: Short CBC 06/29/24 Range/Units 01:42 WBC 14.3 H (3.6-11.0) Thou/mm3 Hgb 12.2 (12.0-16.0) g/dL Hct 37.8 (36.0-46.0) % Plt Count 231 (140-440) Thou/mm3 BMP 06/29/24 01:42 Sodium 139 Potassium 5.1 Chloride 104 Carbon Dioxide 25.2 BUN 40 H Creatinine 1.3 Glucose 193 H Calcium 10.5 Cardiac Enzymes 06/29/24 06/29/24 Range/Units 01:42 04:43 Troponin I 2.710 H* 14.257 H* D (0.0-0.045) ng/mL Liver Function 06/29/24 Range/Units 01:42 Total Bilirubin 0.5 (0.3-1.2) mg/dL AST 49 H (0-34) U/L ALT 34 (10-49) U/L Alkaline Phosphatase 71 (46-116) U/L Albumin 4.2 (3.4-4.8) gm/dL Quality Measures Quality Measures none Advance care planning discussed with:: patient and spouse Medications Home Medications and Allergies Home Medications ?Medication ?Instructions ?Recorded ?Confirmed ?Type albuterol sulfate 90 mcg/actuation 2 puff inhalation Q6H PRN 05/27/22 05/19/24 History aerosol inhaler Shortness Of Breath Or Wheezing fluticasone 250 mcg-salmeterol 50 1 inh inhalation BID 05/27/22 05/19/24 History mcg/dose blistr powdr for inhalation levothyroxine 125 mcg tablet 125 mcg PO QDAY 05/27/22 05/19/24 History furosemide 40 mg tablet 40 mg PO QDAY 05/28/22 05/19/24 History clopidogrel 75 mg tablet 75 mg PO QDAY 05/19/24 05/19/24 History meclizine 50 mg tablet 50 mg PO QDAY 05/19/24 05/19/24 History prednisone 10 mg tablet 30 mg PO EVERYOTHERDAY 05/19/24 05/19/24 History prednisone 20 mg tablet 20 mg PO EVERYOTHERDAY 05/19/24 05/19/24 History sacubitril 49 mg-valsartan 51 mg 1 tab PO BID 05/19/24 05/19/24 History tablet (Entresto) tramadol 50 mg tablet 50 mg PO Q12H PRN pain 05/19/24 05/19/24 History carvedilol 3.125 mg tablet (Coreg) 3.125 mg PO BID 05/20/24 05/20/24 History Allergies Allergy/AdvReac Type Severity Reaction Status Date / Time potassium Allergy Rash Verified 06/29/24 01:24 Smrsuty-WOH-SvM Reductase AdvReac Severe Myalgia Verified 06/29/24 01:24 Inhibitor Visit Medications Acetaminophen (Acetaminophen 325 Mg Tablet) 650 mg PO Q6H PRN PRN Reason: Fever >101.5 Stop: 07/29/24 05:44 Alprazolam (Alprazolam 0.25 Mg Tablet) 0.5 mg PO BID PRN PRN Reason: ANXIETY Stop: 07/04/24 05:49 Aspirin (Aspirin Ec 81 Mg Tabec) 81 mg PO QDAY [facility] Stop: 07/30/24 08:59 Clopidogrel Bisulfate (Clopidogrel Bisulfate 75 Mg Tablet) 75 mg PO QDAY [facility] Stop: 07/29/24 08:59 Dextrose (Dextrose 50%-Water Inj 50 Ml Syringe) 25 ml IV Q15MIN PRN PRN Reason: BG 50-70 responsive npo pt Stop: 07/29/24 05:55 Dextrose (Dextrose 50%-Water Inj 50 Ml Syringe) 50 ml IV Q15MIN PRN PRN Reason: BG <50 OR BG <70 & pt unresponsive Stop: 07/29/24 05:55 Furosemide (Furosemide 20 Mg Tablet) 20 mg PO QAM [facility] Stop: 07/29/24 08:59 Glucagon (Glucagon Inj 1 Mg Vial) 1 mg IM Q15MIN PRN PRN Reason: BG <70, and no IV access Heparin Sodium (Porcine) (Heparin Sod Inj 5000 Unit/Ml Vial) 2,000 unit IV X1 ONE; Protocol Stop: 06/29/24 05:32 Heparin Sodium/Dextrose (Heparin In D5w Ivpb) 25,000 unit in 250 mls @ 11.975 mls/hr IV .[id number] [facility]; Protocol Stop: 07/13/24 05:44 Insulin Human Lispro (Insulin Lispro (Admelog) 1 Unit/0.01 Ml Unit) 0 unit SC AC [facility]; Protocol Stop: 07/29/24 07:29 Isosorbide Mononitrate (Isosorbide Er Mononitrate 30 Mg Tabcr) 30 mg PO QDAY [facility] Stop: 07/29/24 08:59 Levothyroxine Sodium (Levothyroxine Sodium 125 Mcg Tablet) 125 mcg PO ACBR [facility] Stop: 07/29/24 05:59 Metoprolol Succinate (Metoprolol Succinate Xl 25 Mg Tabcr) 25 mg PO QDAY [facility] Stop: 07/29/24 08:59 Pantoprazole Sodium (Pantoprazole 40 Mg Tablet) 40 mg PO QDAY [facility] Stop: 07/29/24 08:59 Prednisone (Prednisone 5 Mg Tablet) 10 mg PO QAM [facility] Stop: 07/29/24 08:59 Pregabalin (Pregabalin 75 Mg Capsule) 75 mg PO BID [facility] Stop: 07/29/24 08:59 Sacubitril/Valsartan (Sacubitril 24 Mg/Valsartan 26 Mg Tablet) 1 tab PO BID [facility] Stop: 07/29/24 08:59 Tramadol HCl (Tramadol Hcl 50 Mg Tablet) 50 mg PO Q12HR [facility] Stop: 07/04/24 08:59 Discontinued Medications Aspirin (Aspirin 81 Mg Chew) 324 mg PO X1 ONE Stop: 06/29/24 05:32 Last Admin: 06/29/24 05:47 Dose: 324 mg Assessment & Plan Plan Summary:A 79-year-old female patient Jehovah witness with past medical history polymyalgia rheumatica, hypothyroidism, hypertension, wheelchair-bound, asthma, HFrEF last EF on May 2024 was 35 to 40% on angiogram, asthma on 2 L of oxygen, obesity, chronic neck pain presented to the ED due to acute onset of burning chest pain that started at 1:30 AM today. Patient was admitted for treatment of non-STEMI type I Assessment and plan #Non-STEMI type I #History of multivessel coronary artery disease #History of HFrEF last EF 35 to 40% on angiogram patient was vitally stable except heart rate was 108, saturating 95% on her baseline oxygen of O2 2 L, her CBC was only significant for mild leukocytosis of 14.3, platelets 231, CMP was only significant for serum creatinine of 1.3 which is her baseline, BUN 40, glucose of 193, calcium of 10.5, troponin 2.710 up trended to 14.257 within 3 hours. BNP was 730, last BMP 4 the patient was 2583. EKG was done and showed left bundle branch block. In review of previous EKGs it was noticed that the patient had the first left bundle branch block we have in her chart when she was admitted to the hospital last month. No ST segment changes was noted in the recent EKG. Patient was given 1 dose of aspirin at the ED 324 mg p.o. x 1. Plan ? Admit patient to telemetry ? Cardiology consultation to Dr. Reyes was ordered, follow-up with his recommendations ? Continue the patient on aspirin 81 mg daily, Plavix 75 mg daily ? Continue the patient home medication Entresto ? Pending med reconciliation start the patient on heparin drip ? Continue the patient home medication Lasix 20 mg ? Continue the patient home medication metoprolol 25 mg daily ? Strict in and out ? Fluid restriction to 1500 mL #History of hypothyroidism Last TSH was within normal limits in May 2024 Plan ? Resume home medication levothyroxine 125 mcg ACBR #History of hypertension Plan ? Resume home medication metoprolol as above ? Resume home medication Entresto as above #History of polymyalgia rheumatica #History of fibromyalgia Plan ? Resume home medication prednisone 10 mg daily #History of asthma Plan ? At this time patient does not have any symptoms or wheezing. ? Consider giving the patient breathing treatments if needed Hospital Maintenance: FEN: Cardiac diet DVT ppx: Heparin GI ppx: Protonix IV lines: PIV Silveira: None Code status: No intubation, patient expressed her wishes to have CPR however without intubation. Dispo: Telemetry Patient's plan and care discussed with my attending, Dr. Reynaldo Burks MD Internal Medicine PGY-2 Attending Provider Attestation/Addendum Pt was evaluated and plan formulated together with the housestaff team. I have reviewed the residents note above and agree with most of its content. Please refer to the residents note for additional details.
[2024-06-29] MEDS: LEVOTHYROXINE SODIUM 125 MCG TABLET PO (06:29)
--- NOTE | 2024-06-29 07:12 | PC.NURSE ---
Report received from pm nurse, patient lying in gurney in semifowler's position, to er with c/o upper mid chest pain radiating to perla arms and back, currently patient denies pain, skin is cool, dry and slightly pale. Patient awaiting bed on floor admitted for NSTEMI, will start heparin gtt per md order. Spouse at bedside, call light within reach.
[2024-06-29] MEDS: HEPARIN SOD INJ 5000 UNIT/ML VIAL 4000 UNIT IV (07:39)
[2024-06-29] MEDS: Heparin/D5w 25K 250 ML Ivpb 25,000 UNIT/250 ML BAG 10.084 UNIT IV (07:40)
--- NOTE | 2024-06-29 09:04 | PC.SS ---
Initial assessment: this is 79 year old female pending admission to med/tele. Patient is reported to live at home with spouse, Bro Roman at confirmed home address on face sheet. Patient is reported to be bed bound. Patient has wheelchair to assist with mobility. Patient has home oxygen on 2L at night. Patient followed by Dr. Suraj Yi for primary care. Patient is also followed by Dr. Rivero. Patient's spouse, Bro identified as alternate medical surrogate decision maker. The discharge plan was discussed and patient to return home. patient services rep to follow up on further discharging needs. D/c plan: home Next of kin: spouse, Bro
[2024-06-29] MEDS: Furosemide 20 MG TABLET PO (09:24)
[2024-06-29] MEDS: METOPROLOL SUCCINATE XL 25 MG TABCR PO (09:24)
[2024-06-29] MEDS: traMADol HCL 50 MG TABLET PO ×2 (09:26→21:11)
[2024-06-29] MEDS: predniSONE 5 MG TABLET 10 MG PO (09:26)
[2024-06-29] MEDS: PANTOPRAZOLE 40 MG TABLET PO (09:27)
[2024-06-29] MEDS: CLOPIDOGREL BISULFATE 75 MG TABLET PO (09:28)
[2024-06-29] MEDS: PREGABALIN 75 MG CAPSULE PO ×2 (09:29→21:11)
[2024-06-29] MEDS: ISOSORBIDE ER MONONITRATE 30 MG TABCR PO (09:29)
[2024-06-29] MEDS: SACUBITRIL 24 MG/VALSARTAN 26 MG TABLET 1 TAB PO ×2 (09:31→21:11)
[2024-06-29 11:46] LABS: Troponin I > 25.000 ng/mL (0.0-0.045)
--- NOTE | 2024-06-29 12:00 | PC.NURSE ---
Called Dr. Dupont made him aware of patients troponin >25, also called Dr. Mckenzie made him aware of elevated troponin as well. Verbal order from Dr. Mckenzie to cancel all future troponin's ordered at this time.
--- NOTE | 2024-06-29 12:39 | PC.NURSE ---
ASSESSED PATIENT TO VOID W/ PUREWICK
[2024-06-29 14:15] LABS: Partial Thromboplastin Time 41.2 Seconds (22.0-36.0)
--- NOTE | 2024-06-29 14:28 | PC.NURSE ---
PATIENT IS LYING IN GURNEY. NO DISTRESS NOTED, IN BESIDES. CALL LIGHT IN REACH
--- NOTE | 2024-06-29 14:47 | ESPR_ITS ---
<Statement entered by Patricia Elizalde MD - 06/29/24 16:28> I discussed with and supervised the logistics intern physician who took care of this patient. I personally saw and examined the patient and discussed the assessment and plan with the entire medicine team, including my attending Dr. Hernandez, I agree with the assessment and plan as documented below Patient seen and examined at bedside today. Labs and imaging reviewed. No overnight acute events This morning at the bedside she stated that her chest pain resolved resolved. Pending cardiology recommendations . Patient will still be on heparin drip, aspirin, Plavix, Entresto, Lasix, metoprolol. troponin has been uptrending, last troponin 25. Due to patient's prior transfer to [facility] for possible intervention for CABG, however declined at the time for medical management, patient will require some sort of intervention or goals of care discussion moving forward, patient is Jehovah witness and she stated that no blood transfusions and she is Limited code ok with CPR and no Intubation. I discussed with and supervised the logistics intern physician who took care of this patient. I personally saw and examined the patient and discussed the assessment and plan with the entire medicine team, including my attending Dr. Hernandez, I agree with most of the assessment and plan as documented below Patricia Elizalde MD PGY-3 Disclaimer: Despite multiple revisions, due to the dictation software being used, the document bellow may not be free of grammatical errors including phonetic/typographic errors. However, this does not deter from our commitment to providing health care in the patient's best interest in mind. <Statement entered by Brianda Mendenhall MD - 06/29/24 15:40> Patient seen and examined at bedside. Patient states that her current chest pain resolved, and denies any shortness of breath, nausea/vomiting, fever or anxiety. Patient is weighing her options regarding possible PCI for stent placement with her epic director, Dr. Reyes. Pending cardiology recommendations for now. Patient will still be on heparin drip, aspirin, Plavix, Entresto, Lasix, metoprolol and troponin has been uptrending, last troponin 25. Due to patient's prior transfer to [facility] for possible intervention for CABG, however declined at the time for medical management, patient will require some sort of intervention or goals of care discussion moving forward. I discussed with and supervised the logistics intern physician who took care of this patient. I personally saw and examined the patient and discussed the assessment and plan with the entire medicine team, including my attending Dr. Hernandez, I agree with most of the assessment and plan as documented below Brianda Mendenhall M.D. PGY-2 Disclaimer: Despite multiple revisions, due to the dictation software being used, the document bellow may not be free of grammatical errors including phonetic/typographic errors. However, this does not deter from our commitment to providing health care in the patient's best interest in mind. Documentation for date of: 06/29/24 Subjective Subjective Interval history: No overnight events. Patient seen and examined at bedside, resting comfortably. Patient denies current chest pain, shortness of breath, nausea, vomiting, fever, chills, anxiety. Patient states she is considering going to PCI with stent placement, awaiting conversation with epic director Dr. Reyes. Follow-up with cardiology consult. Continue heparin drip. Exam Vital Signs Temp Pulse Resp BP Pulse Ox O2 Del Method O2 Flow Rate 98.3 F 60 16 143/78 H 97 Nasal Cannula 2 06/29/24 11:21 06/29/24 11:23 06/29/24 11:21 06/29/24 11:21 06/29/24 11:21 06/29/24 11:21 06/29/24 11:21 Narrative Exam PE: Gen: Well-developed and well-nourished. HEENT: NCAT, PERRLA, EOMI, MMM, anicteric conjunctivae. CVS: normal S1 and S2. RRR. No M/R/G. Resp: CTA B/L. No rhonchi, rales, crackles or wheezing. Abd: soft, non-tender, non-distended. MSK: Good ROM in BUE & BLE. No edema or rash. Neuro: CN II-XII grossly intact. Strength 5/5 in BUE & BLE. Alert and oriented x3. Psych: appropriate mood and affect. Objective Labs 06/30/24 05:23 06/30/24 05:23 Labs: Laboratory Results - last 24 hr 06/29/24 06/29/24 06/29/24 01:42 04:43 04:45 WBC 14.3 H RBC 4.36 Hgb 12.2 Hct 37.8 MCV 87 MCH 28.0 MCHC 32.3 RDW Std Deviation 54.4 H Plt Count 231 Neut % (Auto) 89 H Lymph % (Auto) 5 L Anderson % (Auto) 4 Eos % (Auto) 1 Baso % (Auto) 0 Neut # (Auto) 12.7 H Lymph # (Auto) 0.6 L Anderson # (Auto) 0.6 Eos # (Auto) 0.2 Baso # (Auto) 0.1 Immature Gran # (Auto) 0.13 H Absolute Nucleated RBC 0.00 Immature Gran % 1 H Nucleated RBC % 0 PT 10.6 INR 1.0 APTT 24.2 D Sodium 139 Potassium 5.1 Chloride 104 Carbon Dioxide 25.2 Anion Gap 10 BUN 40 H Creatinine 1.3 Estim Creat Clear Calc 44.1 L eGFR 42 L BUN/Creatinine Ratio 31 H Glucose 193 H Calculated Osmolality 292 Calcium 10.5 Corrected Calcium 10.5 H Magnesium 1.8 Total Bilirubin 0.5 AST 49 H ALT 34 Alkaline Phosphatase 71 Troponin I 2.710 H* 14.257 H* D B-Natriuretic Peptide 730 H* Total Protein 6.7 Albumin 4.2 Globulin 2.5 Albumin/Globulin Ratio 1.7 06/29/24 06/29/24 10:16 13:22 WBC RBC Hgb Hct MCV MCH MCHC RDW Std Deviation Plt Count Neut % (Auto) Lymph % (Auto) Anderson % (Auto) Eos % (Auto) Baso % (Auto) Neut # (Auto) Lymph # (Auto) Anderson # (Auto) Eos # (Auto) Baso # (Auto) Immature Gran # (Auto) Absolute Nucleated RBC Immature Gran % Nucleated RBC % PT INR APTT 41.2 H D Sodium Potassium Chloride Carbon Dioxide Anion Gap BUN Creatinine Estim Creat Clear Calc eGFR BUN/Creatinine Ratio Glucose Calculated Osmolality Calcium Corrected Calcium Magnesium Total Bilirubin AST ALT Alkaline Phosphatase Troponin I > 25.000 H* D B-Natriuretic Peptide Total Protein Albumin Globulin Albumin/Globulin Ratio Quality Measures Quality Measures VTE prophylaxis Advance care planning discussed with:: patient and spouse Assessment & Plan Assessment Current Active Medications: Generic Name Dose Route Start Last Admin Trade Name Freq PRN Reason Stop Dose Admin Acetaminophen 650 mg 06/29/24 05:45 Acetaminophen 325 Mg Tablet PO 07/29/24 05:44 Q6H PRN Fever >101.5 Alprazolam 0.5 mg 06/29/24 05:50 Alprazolam 0.25 Mg Tablet PO 07/04/24 05:49 BID PRN ANXIETY Aspirin 81 mg 06/30/24 09:00 Aspirin Ec 81 Mg Tabec PO 07/30/24 08:59 QDAY CLARA Clopidogrel Bisulfate 75 mg 06/29/24 09:00 06/29/24 09:28 Clopidogrel Bisulfate 75 Mg Tablet PO 07/29/24 08:59 75 mg QDAY CLARA Administration Dextrose 25 ml 06/29/24 05:56 Dextrose 50%-Water Inj 50 Ml Syringe IV 07/29/24 05:55 Q15MIN PRN BG 50-70 responsive npo pt Dextrose 50 ml 06/29/24 05:56 Dextrose 50%-Water Inj 50 Ml Syringe IV 07/29/24 05:55 Q15MIN PRN BG <50 OR BG <70 & pt unresponsive Furosemide 20 mg 06/29/24 09:00 06/29/24 09:24 Furosemide 20 Mg Tablet PO 07/29/24 08:59 20 mg QAM CLARA Administration Glucagon 1 mg 06/29/24 05:56 Glucagon Inj 1 Mg Vial IM Q15MIN PRN BG <70, and no IV access Heparin Sodium/Dextrose 25,000 unit in 250 mls @ 10.084 mls/hr 06/29/24 05:45 06/29/24 14:41 Heparin In D5w Ivpb IV 07/13/24 05:44 11.259 units/kg/hr .Q24H CLARA 12.262 mls/hr Titration Protocol 9.259 UNITS/KG/HR Insulin Human Lispro 0 unit 06/29/24 07:30 06/29/24 13:02 Insulin Lispro (Admelog) 1 Unit/0.01 Ml Unit SC 07/29/24 07:29 Not Given AC CLARA Protocol Isosorbide Mononitrate 30 mg 06/29/24 09:00 06/29/24 09:29 Isosorbide Er Mononitrate 30 Mg Tabcr PO 07/29/24 08:59 30 mg QDAY CLARA Administration Levothyroxine Sodium 125 mcg 06/29/24 06:00 06/29/24 06:29 Levothyroxine Sodium 125 Mcg Tablet PO 07/29/24 05:59 125 mcg AC CLARA Administration Metoprolol Succinate 25 mg 06/29/24 09:00 06/29/24 09:24 Metoprolol Succinate Xl 25 Mg Tabcr PO 07/29/24 08:59 25 mg QDAY CLARA Administration Pantoprazole Sodium 40 mg 06/29/24 09:00 06/29/24 09:27 Pantoprazole 40 Mg Tablet PO 07/29/24 08:59 40 mg QDAY CLARA Administration Prednisone 10 mg 06/29/24 09:00 06/29/24 09:26 Prednisone 5 Mg Tablet PO 07/29/24 08:59 10 mg QAM CLARA Administration Pregabalin 75 mg 06/29/24 09:00 06/29/24 09:29 Pregabalin 75 Mg Capsule PO 07/29/24 08:59 75 mg BID CLARA Administration Sacubitril/Valsartan 1 tab 06/29/24 09:00 06/29/24 09:31 Sacubitril 24 Mg/Valsartan 26 Mg Tablet PO 07/29/24 08:59 1 tab BID CLARA Administration Tramadol HCl 50 mg 06/29/24 09:00 06/29/24 09:26 Tramadol Hcl 50 Mg Tablet PO 07/04/24 08:59 50 mg Q12HR CLARA Administration Plan 79-year-old female patient Jehovah witness with past medical history polymyalgia rheumatica, hypothyroidism, hypertension, wheelchair-bound, asthma, HFrEF last EF on May 2024 was 35 to 40% on angiogram, asthma on 2 L of oxygen, obesity, chronic neck pain presented to the ED due to acute onset of burning chest pain. #Non-STEMI type I #History of multivessel coronary artery disease #History of HFrEF last EF 35 to 40% on angiogram Patient was vitally stable except heart rate was 108, saturating 95% on her baseline oxygen of O2 2 L, her CBC was only significant for mild leukocytosis of 14.3, platelets 231, CMP was only significant for serum creatinine of 1.3 which is her baseline, BUN 40, glucose of 193, calcium of 10.5, troponin 2.710 up trended to 14.257 within 3 hours. BNP was 730, last BMP 4 the patient was 2583. EKG was done and showed left bundle branch block, seen on previous imaging. No ST segment changes was noted in the recent EKG. Patient was given 1 dose of aspirin at the ED 324 mg p.o. x 1. Patient had NSTEMI in May, was found to have multiple vessel disease. Patient refused CABG due to concerns of bleeding, did not wish for stent at that time,*medical management. Patient considering receiving stent this visit, pending consultation with cardiology. -Admit patient to telemetry -Cardiology consultation to Dr. Reyes was ordered, follow-up with his recommendations -Continue the patient on aspirin 81 mg daily, Plavix 75 mg daily -Continue the patient home medication Entresto -heparin drip -Continue the patient home medication Lasix 20 mg -Continue the patient home medication metoprolol 25 mg daily -Isosorbide mononitrate 30 mg p.o. daily -Strict in and out -Fluid restriction to 1500 mL #History of hypothyroidism Patient history as stated. Last TSH was within normal limits in May 2024 -Resume home medication levothyroxine 125 mcg ACBR #History of hypertension Patient history as stated -Resume home medication metoprolol as above -Resume home medication Entresto as above #History of polymyalgia rheumatica #History of fibromyalgia Patient history as stated -Resume home medication prednisone 10 mg daily #History of asthma Patient history as stated -At this time patient does not have any symptoms or wheezing. -Consider giving the patient breathing treatments if needed FEN: Cardiac diet DVT ppx: Heparin GI ppx: Protonix IV lines: PIV Code status: DNI Plan of care discussed with senior resident Dr. Mendenhall PGY?[address] Elizalde PGY?3, and attending Dr. Hernandez. Kameron Joshi MD PGY?1 Attending Provider Attestation/Addendum I have examined the patient, reviewed labs and imaging findings, discussed the case with the resident(s), and reviewed entered orders. I agree with the plan of care as outlined in this note, with these additional summaries/recommendations: Patient seen at bedside.Patient seen at bedside. She still endorses chest pain and minimal shortness of breath. Patient admitted overnight for NSTEMI Type I. Patient started on heparin gtt for anticoagulation, and dual antiplatelet therapy with aspirin and Plavix. Patient has history of multivessel disease but refused CABG previously out of concern for bleeding risk as patient is a Jehovah witness. Cardiology consulted, recommendations appreciated. Most recent troponin >25 and likely little benefit to continue to trend given patient has declined intervention except for conservative management. Continue high intensity statin therapy. Will resume home antihypertensives as tolerated. Continue home levothyroxine and prednisone for PMR. Breathing treatments as needed for history of asthma. Prognosis guarded at this time. Dr. David MD
[2024-06-29] MEDS: HEPARIN SOD INJ 5000 UNIT/ML VIAL 2000 UNIT IVP (14:51)
--- NOTE | 2024-06-29 15:28 | PC.NURSE ---
Patient gone to ct.
--- NOTE | 2024-06-29 16:24 | ESCONSULT_ITS ---
<Statement entered by Natanael Reyes MD - 07/05/24 13:21> I personally examined the patient evaluated the patient with resident physician have known this patient very well last month she was admitted hospital acute myocardial infarction found to have severe 90% stenosis of left main and LAD surgical consultation showed obtained patient was not a candidate for surgery bypass surgery as she is Restorationism and also not willing to have any surgery because of blood loss issues and complexity. [employer]ICE was also deferred but now she came back with severe chest pain acute myocardial infarction with significant ST non-ST segment elevation ME with elevated troponin levels continues to have chest pain recommend aspirin Plavix and heparin drip will discuss with patient about possibly performing left main stent placement with Impella left ventricular assist device. Patient also has statin intolerance and is being given Leqvio injection for hypercholesteremia continue medical management aspirin heparin and Plavix will monitor the patient closely conditions critical but stable spent more than 45 minutes going over all the questions concerns with the patient. Agree with the treatment plan recommendation as documented by HPI Data of Consult Requesting Physician: Eber Jacobs MD Admitting Provider: Eber Jacobs MD Attending Provider: Eber Jacobs MD Primary Care Provider: Suraj Yi MD Consult Narrative Reason for consult: Chest pain History of present illness: The patient is a 79-year-old female, Restorationism, past medical history of polymyalgia rheumatica, hypothyroidism, hypertension, CHF, asthma, on 2 L home oxygen only at night, obesity. The patient presented to the emergency room with . Patient states chest pain lasted for more than an hour, she went took an Ativan but it did not resolve her symptoms. EMS was called and en route to the emergency room, she was given sublingual nitroglycerin and aspirin which improved her symptoms. At the time of evaluation in the emergency room, patient is seen on a heparin drip, propped up in bed, does not complain of any chest pain or shortness of breath at the moment. Patient states he does have history of shortness of breath and takes oxygen 2 L at home only at nighttime. Of note, Patient is well-known to provider network manager Dr. Michelle Reyes, was patient had a similar presentation last month and underwent coronary angiogram, which revealed severe multivessel disease with evidence of chronic total occlusion of right coronary artery and critical 90% left main coronary artery stenosis and 95% stenosis of proximal left anterior descending artery. Also noted moderate LV dysfunction EF 35 to 40%. She was recommended to have bypass surgery, but patient reported that she was seen by cardiothoracic surgeon and was told that surgery will be high risk, with possible risk of and comorbidity. The patient chose to forego surgery, patient was also offered PCI to left mainstem as a second line high risk procedure by Dr. Michelle Reyes, but patient declined to have the procedure at that time. The patient is admitted by the medical team, and cardiology is consulted. Continued to have uptrending troponins during hospital stay, last troponin more than 25, but on reevaluation patient did not complain of chest pain. ED course: Initial labs pertinent for leukocytosis, WBC 14.3, troponin elevation with continued uptrend, EKG shows left bundle branch block, consistent with previous EKGs, patient was given loading dose of aspirin 325 mg and sublingual nitroglycerin en route to ER by EMS, which resolved patient's chest pain, patient was started on heparin drip in the emergency room and cardiology was consulted. PMH: As above PSH: Cholecystectomy FamHx: Both mother and father had history of ME with stents, hypertension Social: Unemployed, lives in [place] with . Denies smoking, drinking. Allergies: potassium (rash), Statins (myopathy) cc:: cc: Eber Jacobs MD Review of Systems Review of Systems Systems Reviewed: All systems reviewed, normal except as documented Past Medical History Past Medical History NEUROLOGIC: Positive Dementia; Negative Neurological Disorders, Cerebrovascular Accident, Transient Ischemic Attacks (TIA), Alzheimer's Disease, Parkinson's Disease, Brain Tumor, Meningitis, Seizures, Epilepsy, Multiple Sclerosis, Cerebral Palsy, Amyotrophic Lateral Sclerosis (ALS/Nila Gehrig's), Guillain-Monterey Syndrome, Spina Bifida, Paralysis, Peripheral Neuropathy, Ram's Palsy, Subdural Hematoma, Migraine, Head Trauma, Spinal Cord Injury or Traumatic Brain Injury CARDIAC: Positive Cardiac Disorders, Coronary Artery Disease, Hypercholesterolemia, Congestive Heart Failure and Hypertension; Negative Myocardial Infarction, Cardiac Arrhythmia, Atrial Fibrillation, Angina, Heart Murmur, Atherosclerotic Heart Disease, Peripheral Vascular Disease, Aneurysm, Congenital Heart Disease, Valvular Heart Disease, Rheumatic Fever, Cardiomyopathy, Pericarditis, Cellulitis, Hypotension or Varicose Veins RESPIRATORY: Positive Asthma and Pneumonia; Negative Chronic Obstructive Pulmonary Disease (COPD), Emphysema, Pulmonary Fibrosis, Tuberculosis, Pulmonary Embolism or Sleep Apnea GASTROINTESTINAL: Positive Gall Bladder Disease, Diverticulitis, Hemorrhoids, Gastroesophageal Reflux Disease and Obesity; Negative Gastrointestinal Disorders, Cirrhosis, Pancreatitis, Gastrointestinal Bleed, Esophageal Varices, David's Esophagus, Colitis, Ulcerative Colitis, Diverticulosis, Ulcer, Colorectal Cancer, Irritable Bowel, Crohn's Disease, Obstructive Bowel or Hiatal Hernia GENITOURINARY: Negative Genitourinary Disorders, Renal Disease, Kidney Stones, Polycystic Kidney Disease, Neurogenic Bladder, Inguinal Hernia, Dialysis or Prostate Cancer REPRODUCTIVE: Negative Breast Cancer, Endometriosis, Genital Herpes, Gonorrhea, Pelvic Inflammatory Disease, Previous Pregnancies, Syphilis or Uterine Prolapse MUSCULOSKELETAL: Positive Musculoskeletal Disorders, Arthritis and Fibromyalgia (polymyalgia rheumatica); Negative Muscular Dystrophy, Myasthenia Gravis, Marfan's Syndrome, Rheumatoid Arthritis, Osteoporosis, Degenerative Disk Disease, Gout, Scoliosis, Carpal Tunnel Syndrome, Fractures, Degenerative Joint Disease, Osteomyelitis or Poliovirus ENT: Negative Cataracts, Glaucoma, Blind, Retinal Detachment, Macular Degeneration, Ear Infection, Deafness, Head Trauma or Eye Prosthesis ENDOCRINE: Positive Hypothyroidism; Negative Endocrine Disorders, Diabetes Mellitus Type 1, Diabetes Mellitus Type 2, Javier's Syndrome, [place]'s Disease, Hyperthyroidism, Parathyroid Disease, Pituitary Disease, Systemic Lupus Erythematosus, Syndrome of Inappropriate Antidiuretic Hormone (SIADH), Adrenal Disease or Graves' Disease HEMATOLOGIC: Positive Anemia; Negative Blood Disorders, Leukemia, Hemophilia, Thalassemia, Sickle Cell Disease or Clotting Problems PSYCHO/SOCIAL: Positive Anxiety; Negative Psychiatric Problems, Recreational Drug Use, Bipolar Disorder, Depression, Behavior Problems, Self-Mutilation, Attention Deficit Disorder, Attention Deficit Hyperactivity Disorder, Depression, Post Traumatic Stress Disorder or Eating Disorder OTHER HISTORY: Positive Hospitalization, Autoimmune Disease, Shingles and Measles; Negative Down Syndrome, Autism, Developmental Delay, Falls, Blood Transfusions, Blood Transfusion Reaction, Organ Transplant, Radiation Therapy, Hyperbaric Therapy, MRSA, Vancomycin-Resistant Enterococci, Human Immunodeficiency Virus (HIV), Chicken Pox, Mumps, Rubella (Sinhala Measles), Pertussis, Clostridium Difficile, Cancer, Breast Cancer, Cervical Cancer, Colorectal Cancer, Ovarian Cancer or Prostate Cancer Family History FAMILY HISTORY: Positive Family Respiratory Disorders and Family Cardiac Disorders; Negative Family Psychiatric Problems, Family Gastrointestinal Problems, Family Cancer or Family Anesthesia Reaction Surgical History SURGICAL: Negative Cardiac Surgery, Open Heart Surgery, Coronary Artery Bypass Graft, Valve Replacement, Vascular Surgery, Coronary Stent, Cardiac Catheterization, Pacemaker, Angiogram, Auto Implanted Cardiovert Defib, Carotid Endarterectomy, Endocrine Surgery, Thyroidectomy, Ear Surgery, Tympanostomy Tube, Eye Surgery, Nose Surgery, Oral Surgery, Tonsillectomy, Adenoidectomy, Cochlear Implant, Corneal Transplant, Throat Surgery, Abdominal Surgery, Tracheostomy, Gastric Bypass Surgery, Gastrostomy, Bowel Surgery, Nephrectomy, Transurethral Resection, Joint Replacement, Amputation, Open Reduction Internal Fixation, Arthroscopy, Neurologic Surgery, Brain Shunt, Mastectomy, Lumpectomy, Hysterectomy, Tubal Ligation, Section or Organ Transplant Social History SMOKING STATUS: Never smoker Exam Vital Signs Temp Pulse Resp BP Pulse Ox O2 Del Method O2 Flow Rate 98.3 F 60 16 143/78 H 97 Nasal Cannula 2 06/29/24 11:21 06/29/24 11:23 06/29/24 11:21 06/29/24 11:21 06/29/24 11:21 06/29/24 11:21 06/29/24 11:21 Narrative Exam GEN: AOx3, able to speak full sentences. Obese, on 2L NC o2 HEENT: NC/AC, oral mucosa moist, neck supple. CVS: RRR, S1-S2 present, no murmurs appreciated. RESP: CTAB. GI: Soft,non distended, non tender, NBS. MSK: Able to move all 4 limbs, no lower extremity edema. SKIN: Warm and dry. LEARNING SOLUTIONS SPECIALIST: CN II-XII and Sensation grossly intact. Results Labs 06/30/24 05:23 06/30/24 05:23 Labs: Short CBC 06/29/24 Range/Units 01:42 WBC 14.3 H (3.6-11.0) Thou/mm3 Hgb 12.2 (12.0-16.0) g/dL Hct 37.8 (36.0-46.0) % Plt Count 231 (140-440) Thou/mm3 BMP 06/29/24 01:42 Sodium 139 Potassium 5.1 Chloride 104 Carbon Dioxide 25.2 BUN 40 H Creatinine 1.3 Glucose 193 H Calcium 10.5 Cardiac Enzymes 06/29/24 06/29/24 06/29/24 Range/Units 01:42 04:43 10:16 Troponin I 2.710 H* 14.257 H* D > 25.000 H* D (0.0-0.045) ng/mL Liver Function 06/29/24 Range/Units 01:42 Total Bilirubin 0.5 (0.3-1.2) mg/dL AST 49 H (0-34) U/L ALT 34 (10-49) U/L Alkaline Phosphatase 71 (46-116) U/L Albumin 4.2 (3.4-4.8) gm/dL Quality Measures Quality Measures VTE prophylaxis Advance care planning discussed with:: patient Medications Home Medications and Allergies Home Medications ?Medication ?Instructions ?Recorded ?Confirmed ?Type albuterol sulfate 90 mcg/actuation 2 puff inhalation Q 6H PRN 05/27/22 05/19/24 History aerosol inhaler Shortness Of Breath Or Wheez ing fluticasone 250 mcg-salmeterol 50 1 inh inhalation BID 05/27/22 05/19/24 History mcg/dose blistr powdr for inhalation levothyroxine 125 mcg tablet 125 mcg PO QDAY 05/27/22 05/19/24 History furosemide 40 mg tablet 40 mg PO QDAY 05/28/2205/19 History clopidogrel 75 mg tablet 75 mg PO QDAY 05/19/2405/19 History meclizine 50 mg tablet 50 mg PO QDAY 05/19/2405/19 History prednisone 10 mg tablet 30 mg PO EVERYOTHERDAY 05/1905/19/24 History prednisone 20 mg tablet 20 mg PO EVERYOTHERDAY 05/1905/19/24 History sacubitril 49 mg-valsartan 51 mg 1 tab PO BID 05/19/24 05/19/24 History tablet (Entresto) tramadol 50 mg tablet 50 mg PO Q12H PRN pain 05/1905/19/24 History carvedilol 3.125 mg tablet (Coreg) 3.125 mg PO BID 05/20/24 History Allergies Allergy/AdvReac Type Severity Reaction Status Date / Time potassium Allergy Rash Verified 06/29/24 01:24 [id number] Reductase AdvReac Severe Myalgia Verified 06/29/24 01:24 Inhibitor Visit Medications Acetaminophen (Acetaminophen 325 Mg Tablet) 650 mg PO Q6H PRN PRN Reason: Fever >101.5 Stop: 07/29/24 05:44 Alprazolam (Alprazolam 0.25 Mg Tablet) 0.5 mg PO BID PRN PRN Reason: ANXIETY Stop: 07/04/24 05:49 Aspirin (Aspirin Ec 81 Mg Tabec) 81 mg PO QDAY [facility] Stop: 07/30/24 08:59 Clopidogrel Bisulfate (Clopidogrel Bisulfate 75 Mg Tablet) 75 mg PO QDAY [facility] Stop: 07/29/24 08:59 Last Admin: 06/29/24 09:28 Dose: 75 mg Dextrose (Dextrose 50%-Water Inj 50 Ml Syringe) 25 ml IV Q15MIN PRN PRN Reason: BG 50-70 responsive npo pt Stop: 07/29/24 05:55 Dextrose (Dextrose 50%-Water Inj 50 Ml Syringe) 50 ml IV Q15MIN PRN PRN Reason: BG <50 OR BG <70 & pt unresponsive Stop: 07/29/24 05:55 Furosemide (Furosemide 20 Mg Tablet) 20 mg PO QAM [facility] Stop: 07/29/24 08:59 Last Admin: 06/29/24 09:24 Dose: 20 mg Glucagon (Glucagon Inj 1 Mg Vial) 1 mg IM Q15MIN PRN PRN Reason: BG <70, and no IV access Heparin Sodium/Dextrose (Heparin In D5w Ivpb) 25,000 unit in 250 mls @ 10.084 mls/hr IV .Q24H [facility]; Protocol Stop: 07/13/24 05:44 Last Titration: 06/29/24 14:41 Dose: 11.259 units/kg/hr, 12.262 mls/hr Insulin Human Lispro (Insulin Lispro (Admelog) 1 Unit/0.01 Ml Unit) 0 unit [facility]; Protocol Stop: 07/29/24 07:29 Last Admin: 06/29/24 13:02 Dose: Not Given Isosorbide Mononitrate (Isosorbide Er Mononitrate 30 Mg Tabcr) 30 mg PO QDAY [facility] Stop: 07/29/24 08:59 Last Admin: 06/29/24 09:29 Dose: 30 mg Levothyroxine Sodium (Levothyroxine Sodium 125 Mcg Tablet) [facility] Stop: 07/29/24 05:59 Last Admin: 06/29/24 06:29 Dose: 125 mcg Metoprolol Succinate (Metoprolol Succinate Xl 25 Mg Tabcr) 25 mg PO QDAY [facility] Stop: 07/29/24 08:59 Last Admin: 06/29/24 09:24 Dose: 25 mg Pantoprazole Sodium (Pantoprazole 40 Mg Tablet) 40 mg PO QDAY [facility] Stop: 07/29/24 08:59 Last Admin: 06/29/24 09:27 Dose: 40 mg Prednisone (Prednisone 5 Mg Tablet) 10 mg PO QAM [facility] Stop: 07/29/24 08:59 Last Admin: 06/29/24 09:26 Dose: 10 mg Pregabalin (Pregabalin 75 Mg Capsule) 75 mg PO BID [facility] Stop: 07/29/24 08:59 Last Admin: 06/29/24 09:29 Dose: 75 mg Sacubitril/Valsartan (Sacubitril 24 Mg/Valsartan 26 Mg Tablet) 1 tab PO BID [facility] Stop: 07/29/24 08:59 Last Admin: 06/29/24 09:31 Dose: 1 tab Tramadol HCl (Tramadol Hcl 50 Mg Tablet) 50 mg PO Q12HR [facility] Stop: 07/04/24 08:59 Last Admin: 06/29/24 09:26 Dose: 50 mg Discontinued Medications Aspirin (Aspirin 81 Mg Chew) 324 mg PO X1 ONE Stop: 06/29/24 05:32 Last Admin: 06/29/24 05:47 Dose: 324 mg Heparin Sodium (Porcine) (Heparin Sod Inj 5000 Unit/Ml Vial) 4,000 unit IV X1 [facility]; Protocol Stop: 06/29/24 05:32 Last Admin: 06/29/24 07:39 Dose: 4,000 unit Heparin Sodium (Porcine) (Heparin Sod Inj 5000 Unit/Ml Vial) 2,000 unit IVP X1 ONE Stop: 06/29/24 14:41 Last Admin: 06/29/24 14:51 Dose: 2,000 unit Assessment & Plan Plan #Acute coronary syndrome, NSTEMI type I #Severe multivessel coronary artery disease ? Of note, Patient is well-known to provider network manager Dr. Michelle Reyes, was patient had a similar presentation last month and underwent coronary angiogram, which revealed severe multivessel disease with evidence of chronic total occlusion of right coronary artery and critical 90% left main coronary artery stenosis and 95% stenosis of proximal left anterior descending artery. Also noted moderate LV dysfunction EF 35 to 40%. She was recommended to have bypass surgery, but patient reported that she was seen by cardiothoracic surgeon and was told that surgery will be high risk, with possible risk of and comorbidity. The patient chose to forego surgery, patient was also offered PCI to left mainstem as a second line high risk procedure by Dr. Michelle Reyes, but patient declined to have the procedure at that time. The patient is admitted by the medical team, and cardiology is consulted. Continued to have uptrending troponins during hospital stay, last troponin > 25, but on reevaluation patient did not complain of chest pain. Plan: ? Continue with aspirin 81 mg, Plavix 75 mg, statins considered, but pt intolerant of statins. ? Sublingual nitroglycerin as needed, for chest pain ? Continue with heparin drip for 24 to 48 hours, the eventual decision for management rest with the patient as she has critical stenosis left mainstem and LAD and severe multivessel disease, but refuses interventional management. Though after discussion and going over pros and cons, patient is willing to consider interventional options, we will await Dr. Michelle Reyes's final recommendations in this regard. #HFrEF Patient has history of HFrEF, EF 35 to 40%, currently patient is in no respiratory distress, saturating well on 2 L oxygen which is close to her baseline at home, does not complain of orthopnea. On physical exam patient does appear clinically dry, no pedal edema noted. ? Medical management including metoprolol succinate 25 mg, Entresto, as tolerated. #History of hypertension #History of polymyalgia rheumatica #History of fibromyalgia - Management per primary team. Case discussed with provider network manager Dr Josefa Best [id number]
[2024-06-29] MEDS: INSULIN LISPRO (AdmeLOG) 1 UNIT/0.01 ML UNIT SC (18:13)
[2024-06-29 22:02] LABS: Partial Thromboplastin Time 60.3 Seconds (22.0-36.0)
[2024-06-30] VITALS (10 sets, daily range): BP systolic 94–136; BP diastolic 48–100; PULSE 7–118; RESP 12–17; TEMP 36.1–36.5; O2SAT 92–100; BMI 35.4
[2024-06-30] MEDS: LEVOTHYROXINE SODIUM 125 MCG TABLET PO (05:14)
[2024-06-30] MEDS: Heparin/D5w 25K 250 ML Ivpb 25,000 UNIT/250 ML BAG 12.262 UNIT IV (05:39)
[2024-06-30 05:51] LABS: Basophils # (Auto) 0.1 Thou/mm3 (0.0-0.2); Basophils % (Auto) 1 % (0-2.5); Eosinophils # (Auto) 0.4 Thou/mm3 (0.0-0.5); Eosinophils % (Auto) 4 % (0-10); Hematocrit 32.4 % (36.0-46.0); Hemoglobin 10.1 g/dL (12.0-16.0); Immature Granulocytes % (Auto) 1 % (0-0); Lymphocytes % (Auto) 11 % (10-50); Mean Corpuscular HGB Conc 31.2 g/dl (31.0-37.0); Mean Corpuscular Hemoglobin 27.2 pg (25.0-35.0); Mean Corpuscular Volume 87 fL (80-100); Monocytes # (Auto) 0.6 Thou/mm3 (0.0-0.8); Monocytes % (Auto) 7 % (0-12); Neutrophils # (Auto) 6.8 Thou/mm3 (1.8-7.7); Neutrophils % (Auto) 76 % (37-80); Nucleated Red Blood Cell % 0 /100 WBC (0); Platelet Count 160 Thou/mm3 (140-440); RDW Standard Deviation 54.4 fL (36.4-46.3); Red Blood Count 3.72 Miln/mm3 (4.00-5.20)
[2024-06-30 06:17] LABS: Anion Gap 6 (7-16); BUN/Creatinine Ratio 28 Ratio (12-20); Blood Urea Nitrogen 37 mg/dL (9-23); Calcium 9.4 mg/dL (8.3-10.6); Carbon Dioxide 30.3 mMol/L (20.0-31.0); Chloride 103 mMol/L (98-107); Creatinine (Component) 1.3 mg/dL (0.6-1.3); Estimated Creatinine Clearance 46.1 mL/min (>60); Glucose 106 mg/dL (74-106); Osmolality,Calculated 286 (275-295); Potassium 4.4 mMol/L (3.4-5.1); Sodium 139 mMol/L (136-145); eGFR 42 See Note
[2024-06-30 06:22] LABS: Partial Thromboplastin Time 93.2 Seconds (22.0-36.0)
[2024-06-30] MEDS: ASPIRIN EC 81 MG TABEC PO (09:32)
[2024-06-30] MEDS: predniSONE 5 MG TABLET 10 MG PO (09:32)
[2024-06-30] MEDS: CLOPIDOGREL BISULFATE 75 MG TABLET PO (09:33)
[2024-06-30] MEDS: SODIUM CHLORIDE 0.9% 250 ML 250 ML 999 ML IV (09:33)
[2024-06-30] MEDS: PREGABALIN 75 MG CAPSULE PO ×2 (09:33→21:10)
[2024-06-30] MEDS: PANTOPRAZOLE 40 MG TABLET PO (09:33)
[2024-06-30] MEDS: traMADol HCL 50 MG TABLET PO ×2 (09:33→21:10)
[2024-06-30 13:28] LABS: Partial Thromboplastin Time 72.4 Seconds (22.0-36.0)
--- NOTE | 2024-06-30 13:31 | ESPR_ITS ---
<Statement entered by Natanael Reyes MD - 07/05/24 13:23> I personally examined the patient evaluated the patient patient is still having episodes of chest pain admitted hospital was severe and chest pain unstable angina pectoris and acute non-ST segment elevation myocardial infarction troponin elevation not have any shortness of breath a lot of chest pain relieved by nitrates. Will discuss about transfer the patient to [facility] if she if she agreeable to for PCI she is going to talk to the about it and discuss with the family before making decision meanwhile continue heparin aspirin and Plavix and nitrates for pain and morphine. Condition is a clinical prognosis still guarded. Evaluate the patient with PGY 2 agree with treatment plan recommendation as documented by Documentation for date of: 06/30/24 Subjective Subjective Interval history: Patient examined at the bedside, continued on heparin drip, reports no chest pain or shortness of breath. Patient spoke to close Dr. Reyes, agrees with plan to proceed with PCI, will initiate transfer process starting tomorrow, tentative plan for cardiac cath at [facility] , likely on Friday. Continue with heparin drip, aspirin and Plavix, as needed nitroglycerin for chest pain. Exam Vital Signs Temp Pulse Resp BP Pulse Ox O2 Del Method O2 Flow Rate 97.0 F 57 L 16 102/48 L 100 Nasal Cannula 2 06/30/24 12:00 06/30/24 12:00 06/30/24 12:00 06/30/24 12:00 06/30/24 12:00 06/30/24 12:00 06/30/24 12:00 Narrative Exam GEN: AOx3, able to speak full sentences. Obese, on 2L NC o2 HEENT: NC/AC, oral mucosa moist, neck supple. CVS: RRR, S1-S2 present, no murmurs appreciated. RESP: CTAB. GI: Soft,non distended, non tender, NBS. MSK: Able to move all 4 limbs, no lower extremity edema. SKIN: Warm and dry. RELAY MAN: CN II-XII and Sensation grossly intact. Objective Labs 06/30/24 05:23 06/30/24 05:23 Labs: Laboratory Results - last 24 hr 06/29/24 06/29/24 06/30/24 13:22 21:18 05:23 WBC 9.0 D RBC 3.72 L Hgb 10.1 L D Hct 32.4 L MCV 87 MCH 27.2 MCHC 31.2 RDW Std Deviation 54.4 H Plt Count 160 D Neut % (Auto) 76 Lymph % (Auto) 11 Garza % (Auto) 7 Eos % (Auto) 4 Baso % (Auto) 1 Neut # (Auto) 6.8 Lymph # (Auto) 1.0 Garza # (Auto) 0.6 Eos # (Auto) 0.4 Baso # (Auto) 0.1 Immature Gran # (Auto) 0.10 H Absolute Nucleated RBC 0.00 Immature Gran % 1 H Nucleated RBC % 0 APTT 41.2 H D 60.3 H D 93.2 H D Sodium 139 Potassium 4.4 D Chloride 103 Carbon Dioxide 30.3 Anion Gap 6 L BUN 37 H Creatinine 1.3 Estim Creat Clear Calc 46.1 L eGFR 42 L BUN/Creatinine Ratio 28 H Glucose 106 D Calculated Osmolality 286 Calcium 9.4 Quality Measures Quality Measures VTE prophylaxis Advance care planning discussed with:: patient Assessment & Plan Assessment Current Active Medications: Generic Name Dose Route Start Last Admin Trade Name Freq PRN Reason Stop Dose Admin Acetaminophen 650 mg 06/29/24 05:45 Acetaminophen 325 Mg Tablet PO 07/29/24 05:44 Q6H PRN Fever >101.5 Alprazolam 0.5 mg 06/29/24 05:50 Alprazolam 0.25 Mg Tablet PO 07/04/24 05:49 BID PRN ANXIETY Aspirin 81 mg 06/30/24 09:00 06/30/24 09:32 Aspirin Ec 81 Mg Tabec PO 07/30/24 08:59 81 mg QDAY CLARA Administration Clopidogrel Bisulfate 75 mg 06/29/24 09:00 06/30/24 09:33 Clopidogrel Bisulfate 75 Mg Tablet PO 07/29/24 08:59 75 mg QDAY CLARA Administration Dextrose 25 ml 06/29/24 05:56 Dextrose 50%-Water Inj 50 Ml Syringe IV 07/29/24 05:55 Q15MIN PRN BG 50-70 responsive npo pt Dextrose 50 ml 06/29/24 05:56 Dextrose 50%-Water Inj 50 Ml Syringe IV 07/29/24 05:55 Q15MIN PRN BG <50 OR BG <70 & pt unresponsive Furosemide 20 mg 06/29/24 09:00 06/30/24 09:34 Furosemide 20 Mg Tablet PO 07/29/24 08:59 Not Given QAM CLARA Glucagon 1 mg 06/29/24 05:56 Glucagon Inj 1 Mg Vial IM Q15MIN PRN BG <70, and no IV access Heparin Sodium/Dextrose 25,000 unit in 250 mls @ 10.084 mls/hr 06/29/24 05:45 06/30/24 06:37 Heparin In D5w Ivpb IV 07/13/24 05:44 9.259 units/kg/hr .Q24H CLARA 10.084 mls/hr Titration Protocol 9.259 UNITS/KG/HR Insulin Human Lispro 0 unit 06/29/24 07:30 06/30/24 12:09 Insulin Lispro (Admelog) 1 Unit/0.01 Ml Unit SC 07/29/24 07:29 Not Given AC CLARA Protocol Isosorbide Mononitrate 30 mg 06/29/24 09:00 06/30/24 09:34 Isosorbide Er Mononitrate 30 Mg Tabcr PO 07/29/24 08:59 Not Given QDAY CLARA Levothyroxine Sodium 125 mcg 06/29/24 06:00 06/30/24 05:14 Levothyroxine Sodium 125 Mcg Tablet PO 07/29/24 05:59 125 mcg ACBR CLARA Administration Metoprolol Succinate 25 mg 06/29/24 09:00 06/30/24 09:34 Metoprolol Succinate Xl 25 Mg Tabcr PO 07/29/24 08:59 Not Given QDAY CLARA Pantoprazole Sodium 40 mg 06/29/24 09:00 06/30/24 09:33 Pantoprazole 40 Mg Tablet PO 07/29/24 08:59 40 mg QDAY CLARA Administration Prednisone 10 mg 06/29/24 09:00 06/30/24 09:32 Prednisone 5 Mg Tablet PO 07/29/24 08:59 10 mg QAM CLARA Administration Pregabalin 75 mg 06/29/24 09:00 06/30/24 09:33 Pregabalin 75 Mg Capsule PO 07/29/24 08:59 75 mg BID CLARA Administration Sacubitril/Valsartan 1 tab 06/29/24 09:00 06/30/24 09:34 Sacubitril 24 Mg/Valsartan 26 Mg Tablet PO 07/29/24 08:59 Not Given BID CLARA Tramadol HCl 50 mg 06/29/24 09:00 06/30/24 09:33 Tramadol Hcl 50 Mg Tablet PO 07/04/24 08:59 50 mg Q12HR [facility] Administration Plan #Acute coronary syndrome, NSTEMI type I #Severe multivessel coronary artery disease ? Of note, Patient is well-known to ophthalmology surgical technician Dr. Michelle Reyes, was patient had a similar presentation last month and underwent coronary angiogram, which revealed severe multivessel disease with evidence of chronic total occlusion of right coronary artery and critical 90% left main coronary artery stenosis and 95% stenosis of proximal left anterior descending artery. Also noted moderate LV dysfunction EF 35 to 40%. She was recommended to have bypass surgery, but patient reported that she was seen by cardiothoracic surgeon and was told that surgery will be high risk, with possible risk of and comorbidity. The patient chose to forego surgery, patient was also offered PCI to left mainstem as a second line high risk procedure by Dr. Michelle Reyes, but patient declined to have the procedure at that time. The patient is admitted by the medical team, and cardiology is consulted. Continued to have uptrending troponins during hospital stay, last troponin > 25, but on reevaluation patient did not complain of chest pain. Plan: ? Continue with aspirin 81 mg, Plavix 75 mg, statins considered, but pt intolerant of statins. ? Sublingual nitroglycerin as needed, for chest pain ? Continue with heparin drip for 24 to 48 hours, the eventual decision for management rest with the patient as she has critical stenosis left mainstem and LAD and severe multivessel disease, but refuses interventional management. ? Patient spoke to ophthalmology surgical technician Dr. Reyes, agrees with plan to proceed with PCI, will initiate transfer process starting tomorrow, tentative plan for cardiac cath at [facility] , likely on Friday. Continue with heparin drip, aspirin and Plavix, as needed nitroglycerin for chest pain. #HFrEF Patient has history of HFrEF, EF 35 to 40%, currently patient is in no respiratory distress, saturating well on 2 L oxygen which is close to her baseline at home, does not complain of orthopnea. On physical exam patient does appear clinically dry, no pedal edema noted. ? Medical management including metoprolol succinate 25 mg, Entresto, as tolerated. #History of hypertension #History of polymyalgia rheumatica #History of fibromyalgia - Management per primary team. Case discussed with ophthalmology surgical technician Dr Josefa Best pgy2
--- NOTE | 2024-06-30 13:38 | ESPR_ITS ---
<Statement entered by Patricia Elizalde MD - 06/30/24 15:25> I discussed with and supervised the compliance intern physician who took care of this patient. I personally saw and examined the patient and discussed the assessment and plan with the entire medicine team, including my attending Dr. Hernandez, I agree with the assessment and plan as documented below Patient seen and examined at bedside today. Labs and imaging reviewed. This morning the bedside, patient denied any acute complaints, AOx4, respond to question properly tolerating p.o. patient was tachycardic around 138 and hypotensive, 250 cc LR bolus x 1 was ordered. Patient denied chest pain, palpitations, nausea, vomiting or any other associated symptom at this moment. The patient stated that she will speak with his about coronary angiogram with stents placement or conservative management she states she will discuss the options today again with cardiology and and inform her decision. Will continue patient on heparin drip, Plavix, aspirin, Entresto and metoprolol at this moment. Patricia Elizalde MD PGY-3 Disclaimer: Despite multiple revisions, due to the dictation software being used, the document bellow may not be free of grammatical errors including phonetic/typographic errors. However, this does not deter from our commitment to providing health care in the patient's best interest in mind. <Statement entered by Brianda Mendenhall MD - 06/30/24 14:39> Patient is a 79-year-old female patient Jehovah witness with past medical history of polymyalgia rheumatica, hypothyroidism, hypertension, wheelchair- bound, asthma, HFrEF last EF on May 2024 was 35 to 40% on angiogram, asthma on 2 L of oxygen, obesity, chronic neck pain presented to the ED due to acute onset of burning chest pain and admitted for NSTEMI type 1 management. Patient seen and examined at bedside. Patient denies any chest pain, palpitations, or SOB. Patient is deliberating her choices regarding conservative management or PCI with 3 stent placements. Patient is leaning towards receving stents, but will have another conversation with cardiology today. Continue with Heparin gtt, Asa, Plavix, GDMT including Entresto and Metoprolol. Patient was slightly hypotensive and tachycardic at bedside, and gave an additional 250ml LR bolus. I discussed with and supervised the compliance intern physician who took care of this patient. I personally saw and examined the patient and discussed the assessment and plan with the entire medicine team, including my attending , I agree with most of the assessment and plan as documented below Brianda Mendenhall M.D. PGY-2 Documentation for date of: 06/30/24 Subjective Subjective Interval history: Overnight events. Patient seen and examined at bedside, resting comfortably. Patient denies chest pain, shortness of breath, palpitations, nausea, vomiting. Patient discussed treatment plans with Dr. Reyes, deciding between stents placement versus medical management. Patient states will come decision tonight after consulting with her and Dr Reyes. Patient hypotensive and tachycardic this morning, improved to 250 mL bolus, morning antihypertensives held. Exam Vital Signs Temp Pulse Resp BP Pulse Ox O2 Del Method O2 Flow Rate 97.0 F 57 L 16 102/48 L 100 Nasal Cannula 2 06/30/24 12:00 06/30/24 12:00 06/30/24 12:06/30/24 12:06/30/24 12:06/30/24 12:06/30/24 12:00 Narrative Exam PE: Gen: Well-developed and well-nourished. HEENT: NCAT, PERRLA, EOMI, MMM, anicteric conjunctivae. CVS: normal S1 and S2. RRR. No M/R/G. Resp: CTA B/L. No rhonchi, rales, crackles or wheezing. Abd: soft, non-tender, non-distended. MSK: Good ROM in BUE & BLE. No edema or rash. Neuro: CN II-XII grossly intact. Strength 5/5 in BUE & BLE. Alert and oriented x3. Psych: appropriate mood and affect. Objective Labs 06/30/24 05:23 06/30/24 05:23 Labs: Laboratory Results - last 24 hr 06/29/24 06/29/24 06/30/24 13:22 21:18 05:23 WBC 9.0 D RBC 3.72 L Hgb 10.1 L D Hct 32.4 L MCV 87 MCH 27.2 MCHC 31.2 RDW Std Deviation 54.4 H Plt Count 160 D Neut % (Auto) 76 Lymph % (Auto) 11 [place] % (Auto) 7 Eos % (Auto) 4 Baso % (Auto) 1 Neut # (Auto) 6.8 Lymph # (Auto) 1.0 [place] # (Auto) 0.6 Eos # (Auto) 0.4 Baso # (Auto) 0.1 Immature Gran # (Auto) 0.10 H Absolute Nucleated RBC 0.00 Immature Gran % 1 H Nucleated RBC % 0 APTT 41.2 H D 60.3 H D 93.2 H D Sodium 139 Potassium 4.4 D Chloride 103 Carbon Dioxide 30.3 Anion Gap 6 L BUN 37 H Creatinine 1.3 Estim Creat Clear Calc 46.1 L eGFR 42 L BUN/Creatinine Ratio 28 H Glucose 106 D Calculated Osmolality 286 Calcium 9.4 Quality Measures Quality Measures VTE prophylaxis Advance care planning discussed with:: patient and spouse Assessment & Plan Assessment Current Active Medications: Generic Name Dose Route Start Last Admin Trade Name Freq PRN Reason Stop Dose Admin Acetaminophen 650 mg 06/29/24 05:45 Acetaminophen 325 Mg Tablet PO 07/29/24 05:44 Q6H PRN Fever >101.5 Alprazolam 0.5 mg 06/29/24 05:50 Alprazolam 0.25 Mg Tablet PO 07/04/24 05:49 BID PRN ANXIETY Aspirin 81 mg 06/30/24 09:00 06/30/24 09:32 Aspirin Ec 81 Mg Tabec PO 07/30/24 08:59 81 mg QDAY CLARA Administration Clopidogrel Bisulfate 75 mg 06/29/24 09:00 06/30/24 09:33 Clopidogrel Bisulfate 75 Mg Tablet PO 07/29/24 08:59 75 mg QDAY CLARA Administration Dextrose 25 ml 06/29/24 05:56 Dextrose 50%-Water Inj 50 Ml Syringe IV 07/29/24 05:55 Q15MIN PRN BG 50-70 responsive npo pt Dextrose 50 ml 06/29/24 05:56 Dextrose 50%-Water Inj 50 Ml Syringe IV 07/29/24 05:55 Q15MIN PRN BG <50 OR BG <70 & pt unresponsive Furosemide 20 mg 06/29/24 09:00 06/30/24 09:34 Furosemide 20 Mg Tablet PO 07/29/24 08:59 Not Given QAM CLARA Glucagon 1 mg 06/29/24 05:56 Glucagon Inj 1 Mg Vial IM Q15MIN PRN BG <70, and no IV access Heparin Sodium/Dextrose 25,000 unit in 250 mls @ 10.084 mls/hr 06/29/24 05:45 06/30/24 06:37 Heparin In D5w Ivpb IV 07/13/24 05:44 9.259 units/kg/hr .Q24H CLARA 10.084 mls/hr Titration Protocol 9.259 UNITS/KG/HR Insulin Human Lispro 0 unit 06/29/24 07:30 06/30/24 12:09 Insulin Lispro (Admelog) 1 Unit/0.01 Ml Unit SC 07/29/24 07:29 Not Given AC CLARA Protocol Isosorbide Mononitrate 30 mg 06/29/24 09:00 06/30/24 09:34 Isosorbide Er Mononitrate 30 Mg Tabcr PO 07/29/24 08:59 Not Given QDAY CLARA Levothyroxine Sodium 125 mcg 06/29/24 06:00 06/30/24 05:14 Levothyroxine Sodium 125 Mcg Tablet PO 07/29/24 05:59 125 mcg ACBR CLARA Administration Metoprolol Succinate 25 mg 06/29/24 09:00 06/30/24 09:34 Metoprolol Succinate Xl 25 Mg Tabcr PO 07/29/24 08:59 Not Given QDAY CLARA Pantoprazole Sodium 40 mg 06/29/24 09:00 06/30/24 09:33 Pantoprazole 40 Mg Tablet PO 07/29/24 08:59 40 mg QDAY CLARA Administration Prednisone 10 mg 06/29/24 09:00 06/30/24 09:32 Prednisone 5 Mg Tablet PO 07/29/24 08:59 10 mg QAM CLARA Administration Pregabalin 75 mg 06/29/24 09:00 06/30/24 09:33 Pregabalin 75 Mg Capsule PO 07/29/24 08:59 75 mg BID CLARA Administration Sacubitril/Valsartan 1 tab 06/29/24 09:00 06/30/24 09:34 Sacubitril 24 Mg/Valsartan 26 Mg Tablet PO 07/29/24 08:59 Not Given BID CLARA Tramadol HCl 50 mg 06/29/24 09:00 06/30/24 09:33 Tramadol Hcl 50 Mg Tablet PO 07/04/24 08:59 50 mg Q12HR CLARA Administration Plan 79-year-old female patient Jehovah witness with past medical history polymyalgia rheumatica, hypothyroidism, hypertension, wheelchair-bound, asthma, HFrEF last EF on May 2024 was 35 to 40% on angiogram, asthma on 2 L of oxygen, obesity, chronic neck pain presented to the ED due to acute onset of burning chest pain. #Non-STEMI type I #History of multivessel coronary artery disease #History of HFrEF last EF 35 to 40% on angiogram Patient was vitally stable except heart rate was 108, saturating 95% on her baseline oxygen of O2 2 L, her CBC was only significant for mild leukocytosis of 14.3, platelets 231, CMP was only significant for serum creatinine of 1.3 which is her baseline, BUN 40, glucose of 193, calcium of 10.5, troponin 2.710 up trended to 14.257 within 3 hours. BNP was 730, last BMP 4 the patient was 2583. EKG was done and showed left bundle branch block, seen on previous imaging. No ST segment changes was noted in the recent EKG. Patient was given 1 dose of aspirin at the ED 324 mg p.o. x 1. Patient had NSTEMI in May, was found to have multiple vessel disease. Patient refused CABG due to concerns of bleeding, did not wish for stent at that time,*medical management. Patient considering receiving stent this visit, pending consultation with cardiology. Patient had episode of hypotension and tachycardia, improved with 250 mL bolus. Morning antihypertensives held. -Admit patient to telemetry -Cardiology consultation to Dr. Reyes was ordered, follow-up with his recommendations -Continue the patient on aspirin 81 mg daily, Plavix 75 mg daily -Continue the patient home medication Entresto -heparin drip -Continue the patient home medication Lasix 20 mg -Continue the patient home medication metoprolol 25 mg daily -Isosorbide mononitrate 30 mg p.o. daily -Strict in and out -Fluid restriction to 1500 mL #History of hypothyroidism Patient history as stated. Last TSH was within normal limits in May 2024 -Resume home medication levothyroxine 125 mcg ACBR #History of hypertension Patient history as stated -Resume home medication metoprolol as above -Resume home medication Entresto as above #History of polymyalgia rheumatica #History of fibromyalgia Patient history as stated -Resume home medication prednisone 10 mg daily #History of asthma Patient history as stated -At this time patient does not have any symptoms or wheezing. -Consider giving the patient breathing treatments if needed FEN: Cardiac diet DVT ppx: Heparin GI ppx: Protonix IV lines: PIV Code status: DNI Plan of care discussed with senior resident Dr. Mendenhall PGY?[address] Elizalde PGY?3, and attending Dr. Hernandez. Kameron Joshi MD PGY?1 Attending Provider Attestation/Addendum I have examined the patient, reviewed labs and imaging findings, discussed the case with the resident(s), and reviewed entered orders. I agree with the plan of care as outlined in this note, with these additional summaries/recommendations: Patient seen at bedside. No acute overnight events. Patient reports improvement in chest pain and shortness of breath although chest pain has not completely resolved. Patient admitted for NSTEMI Type I. Continue heparin gtt for anticoagulation, and dual antiplatelet therapy with aspirin and Plavix, and stat therapy. Patient has history of multivessel disease but refused CABG previously/ too ?high-risk per patient?. Cardiology consulted, recommendations appreciated. Last troponin >25. Cardiac cath vs continuing conservative management was discussed between patient and cardiology. Patient still deciding if she would like to undergo cardiac catheterization and will discuss with cardiology later today. Hold home antihypertensives and GDMT for HFrEF for soft blood pressure. Patient denies dizziness. Continue home levothyroxine and prednisone for PMR. Breathing treatments as needed for history of asthma. Prognosis guarded at this time. Dr. David MD
--- NOTE | 2024-06-30 17:51 | EKG_ITS ---
[facility] Test Date: 2024-06-30 Pat Name: LUDY RAYO [facility] Finished Stock Inspector: DONN : 1945 Requested By: Anthony Conner Order Number: [id number] Reading MD: Anthony Conner Measurements Intervals [place] Rate: 115 P: 84 [place]: 146 QRS: -58 QRSD: 159 T: 109 QT: 334 QTc: 463 Interpretive Statements SINUS TACHYCARDIA MARKED LEFT AXIS DEVIATION INTRAVENTRICULAR CONDUCTION DELAY Compared to ECG 05/19/2024 08:33:26 Intraventricular conduction delay now present Sinus rhythm no longer present Left bundle-branch block no longer present /store/S0/[id number].pdf
[2024-06-30] MEDS: NITROGLYCERIN 0.4 MG SUBL BTL #25 SL (17:53)
[2024-06-30] MEDS: MORPHINE SULF INJ 10 MG/ML VIAL IVP (18:00)
--- NOTE | 2024-06-30 18:14 | PD.RESEVENT ---
Documentation for date of: 06/30/24 Event Note Event Note: Rapid response called at approximately 5:45 PM due to sudden onset of burning chest pain similar to previous episodes of NSTEMI. Patient received 1 dose sublingual nitrogen, 1 mg morphine IV. Repeat EKG taken, showed left bundle branch block seen on previous EKGs. Repeat troponin ordered, pending. Cardiology was updated regarding patient's status. Patient showed rapid improvement, chest pain resolved. Patient did not require additional oxygen, blood pressure stable. Rapid response ended at approximately 6:05 PM. Plan of care discussed with attending Dr. Hernandez. Kameron Joshi MD PGY?1
[2024-06-30 18:33] LABS: Troponin I 10.373 ng/mL (0.0-0.045)
[2024-06-30 20:05] LABS: Partial Thromboplastin Time 60.9 Seconds (22.0-36.0)
[2024-06-30] MEDS: SACUBITRIL 24 MG/VALSARTAN 26 MG TABLET 1 TAB PO (21:10)
[2024-07-01] VITALS (10 sets, daily range): BP systolic 106–154; BP diastolic 56–106; PULSE 57–118; RESP 12–17; TEMP 35.7–37.1; O2SAT 99–100; BMI 35.6
[2024-07-01] MEDS: LEVOTHYROXINE SODIUM 125 MCG TABLET PO (05:33)
[2024-07-01 05:50] LABS: Basophils % (Auto) 0 % (0-2.5); Eosinophils # (Auto) 0.3 Thou/mm3 (0.0-0.5); Eosinophils % (Auto) 3 % (0-10); Hematocrit 32.2 % (36.0-46.0); Hemoglobin 10.3 g/dL (12.0-16.0); Immature Granulocytes % (Auto) 1 % (0-0); Immature Granulocytes Auto 0.08 Thou/mm3 (0.00-0.00); Lymphocytes # (Auto) 0.8 Thou/mm3 (1.0-4.8); Lymphocytes % (Auto) 10 % (10-50); Mean Corpuscular Volume 88 fL (80-100); Monocytes # (Auto) 0.6 Thou/mm3 (0.0-0.8); Monocytes % (Auto) 7 % (0-12); Neutrophils # (Auto) 6.9 Thou/mm3 (1.8-7.7); Neutrophils % (Auto) 79 % (37-80); Nucleated Red Blood Cell % 0 /100 WBC (0); Platelet Count 152 Thou/mm3 (140-440); RDW Standard Deviation 55.1 fL (36.4-46.3); Red Blood Count 3.68 Miln/mm3 (4.00-5.20); White Blood Count 8.7 Thou/mm3 (3.6-11.0)
[2024-07-01] MEDS: Heparin/D5w 25K 250 ML Ivpb 25,000 UNIT/250 ML BAG 10.084 UNIT IV (06:11)
[2024-07-01 06:18] LABS: Partial Thromboplastin Time 66.9 Seconds (22.0-36.0)
[2024-07-01 06:32] LABS: Alanine Aminotransferase 31 U/L (10-49); Albumin, Serum 3.5 gm/dL (3.4-4.8); Albumin/Globulin Ratio 1.5 (1.2-2.2); Alkaline Phosphatase 53 U/L (46-116); Anion Gap 8 (7-16); Aspartate Amino Transferase 40 U/L (0-34); BUN/Creatinine Ratio 29 Ratio (12-20); Bilirubin,Total 0.4 mg/dL (0.3-1.2); Blood Urea Nitrogen 38 mg/dL (9-23); Calcium 9.9 mg/dL (8.3-10.6); Calcium (Corrected) 10.3 mg/dL (8.5-10.1); Carbon Dioxide 28.8 mMol/L (20.0-31.0); Chloride 103 mMol/L (98-107); Creatinine (Component) 1.3 mg/dL (0.6-1.3); Estimated Creatinine Clearance 46.1 mL/min (>60); Globulin 2.4 gm/dL (2.3-3.5); Glucose 94 mg/dL (74-106); Magnesium 1.9 mg/dL (1.6-2.6); Osmolality,Calculated 288 (275-295); Phosphorous 3.8 mg/dL (2.4-5.1); Potassium 4.4 mMol/L (3.4-5.1); Sodium 140 mMol/L (136-145); Total Protein 5.9 gm/dL (5.7-8.2); eGFR 42 See Note
[2024-07-01] MEDS: NITROGLYCERIN 0.4 MG SUBL BTL #25 SL ×2 (07:44→07:49)
--- NOTE | 2024-07-01 07:46 | EKG_ITS ---
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
--- NOTE | 2024-07-01 07:50 | PC.SS ---
Rapid response initiated due to patient experiencing chest pain. Medical team attending to the patient. MARKET RESEARCH COORDINATOR confirmed point of contact is spouse, Bro Roman; .
[2024-07-01] MEDS: MORPHINE SULF INJ 10 MG/ML VIAL IVP (07:51)
[2024-07-01] MEDS: traMADol HCL 50 MG TABLET PO ×2 (08:19→20:26)
[2024-07-01] MEDS: predniSONE 5 MG TABLET 10 MG PO (08:19)
[2024-07-01] MEDS: PANTOPRAZOLE 40 MG TABLET PO (08:19)
[2024-07-01] MEDS: CLOPIDOGREL BISULFATE 75 MG TABLET PO (08:19)
[2024-07-01] MEDS: ASPIRIN EC 81 MG TABEC PO (08:19)
[2024-07-01] MEDS: ISOSORBIDE ER MONONITRATE 30 MG TABCR PO (08:20)
[2024-07-01] MEDS: SACUBITRIL 24 MG/VALSARTAN 26 MG TABLET 1 TAB PO ×2 (08:20→20:26)
[2024-07-01] MEDS: METOPROLOL SUCCINATE XL 25 MG TABCR PO (08:20)
[2024-07-01] MEDS: Furosemide 20 MG TABLET PO (08:20)
[2024-07-01] MEDS: PREGABALIN 75 MG CAPSULE PO ×2 (08:20→20:26)
--- NOTE | 2024-07-01 10:40 | ESPR_ITS ---
<Statement entered by Natanael Reyes MD - 07/05/24 13:23> I personally examined the patient evaluated the patient again had more episodes of chest pain overnight requiring nitrates she agreed to have the PCI complex PCI with a left ventricular assist device will make arrangements for transfer June 24 at [facility] for urgent PCI of the left main with LVAD assist device explained the risks benefits alternatives she agreed to have the procedure and will be transferred and July 02, 2024. Will get a cardiac echo for assessment LV function as well. Documentation for date of: 07/01/24 Subjective Subjective Interval history: Patient evaluated bedside, reported 2 episodes of continued chest pain , rapid responses were called yesterday afternoon and this morning, chest pain starting as patient tried to adjust herself in the bed, starting from her neck and the chest moving bilaterally to shoulders and arms. Patient said sublingual nitro did not immediately resolve the pain, pain resolved about 10 to 15 minutes after receiving IV morphine. Cardiology will initiate transfer process to [facility] for PCI, per bed availability likely Friday. Exam Vital Signs Temp Pulse Resp BP Pulse Ox O2 Del Method O2 Flow Rate 97.0 F 60 17 134/58 H 99 Nasal Cannula 2 07/01/24 10:14 07/01/24 10:14 07/01/24 10:14 07/01/24 10:14 07/01/24 10:14 07/01/24 08:00 07/01/24 10:14 Narrative Exam GEN: AOx3, able to speak full sentences. Obese, saturating well HEENT: NC/AC, oral mucosa moist, neck supple. CVS: RRR, S1-S2 present, no murmurs appreciated. RESP: CTAB. GI: Soft,non distended, non tender, NBS. MSK: Able to move all 4 limbs, no lower extremity edema. SKIN: Warm and dry. CO FOUNDER AND DIRECTOR: CN II-XII and Sensation grossly intact. Objective Labs 07/02/24 04:47 07/02/24 04:47 Labs: Laboratory Results - last 24 hr 06/30/24 06/30/24 06/30/24 12:38 18:00 19:25 WBC RBC Hgb Hct MCV MCH MCHC RDW Std Deviation Plt Count Neut % (Auto) Lymph % (Auto) Bent % (Auto) Eos % (Auto) Baso % (Auto) Neut # (Auto) Lymph # (Auto) Bent # (Auto) Eos # (Auto) Baso # (Auto) Immature Gran # (Auto) Absolute Nucleated RBC Immature Gran % Nucleated RBC % APTT 72.4 H D 60.9 H D Sodium Potassium Chloride Carbon Dioxide Anion Gap BUN Creatinine Estim Creat Clear Calc eGFR BUN/Creatinine Ratio Glucose Calculated Osmolality Calcium Corrected Calcium Phosphorus Magnesium Total Bilirubin AST ALT Alkaline Phosphatase Troponin I 10.373 H* D Total Protein Albumin Globulin Albumin/Globulin Ratio 07/01/24 04:29 WBC 8.7 RBC 3.68 L Hgb 10.3 L Hct 32.2 L MCV 88 MCH 28.0 MCHC 32.0 RDW Std Deviation 55.1 H Plt Count 152 Neut % (Auto) 79 Lymph % (Auto) 10 Bent % (Auto) 7 Eos % (Auto) 3 Baso % (Auto) 0 Neut # (Auto) 6.9 Lymph # (Auto) 0.8 L Bent # (Auto) 0.6 Eos # (Auto) 0.3 Baso # (Auto) 0.0 Immature Gran # (Auto) 0.08 H Absolute Nucleated RBC 0.00 Immature Gran % 1 H Nucleated RBC % 0 APTT 66.9 H Sodium 140 Potassium 4.4 Chloride 103 Carbon Dioxide 28.8 Anion Gap 8 BUN 38 H Creatinine 1.3 Estim Creat Clear Calc 46.1 L eGFR 42 L BUN/Creatinine Ratio 29 H Glucose 94 Calculated Osmolality 288 Calcium 9.9 Corrected Calcium 10.3 H Phosphorus 3.8 Magnesium 1.9 Total Bilirubin 0.4 AST 40 H ALT 31 Alkaline Phosphatase 53 D Troponin I Total Protein 5.9 Albumin 3.5 D Globulin 2.4 Albumin/Globulin Ratio 1.5 Quality Measures Quality Measures VTE prophylaxis Advance care planning discussed with:: patient Assessment & Plan Assessment Current Active Medications: Generic Name Dose Route Start Last Admin Trade Name Freq PRN Reason Stop Dose Admin Acetaminophen 650 mg 06/29/24 05:45 Acetaminophen 325 Mg Tablet PO 07/29/24 05:44 Q6H PRN Fever >101.5 Alprazolam 0.5 mg 06/29/24 05:50 Alprazolam 0.25 Mg Tablet PO 07/04/24 05:49 BID PRN ANXIETY Aspirin 81 mg 06/30/24 09:00 07/01/24 08:19 Aspirin Ec 81 Mg Tabec PO 07/30/24 08:59 81 mg QDAY CLARA Administration Clopidogrel Bisulfate 75 mg 06/29/24 09:00 07/01/24 08:19 Clopidogrel Bisulfate 75 Mg Tablet PO 07/29/24 08:59 75 mg QDAY CLARA Administration Dextrose 25 ml 06/29/24 05:56 Dextrose 50%-Water Inj 50 Ml Syringe IV 07/29/24 05:55 Q15MIN PRN BG 50-70 responsive npo pt Dextrose 50 ml 06/29/24 05:56 Dextrose 50%-Water Inj 50 Ml Syringe IV 07/29/24 05:55 Q15MIN PRN BG <50 OR BG <70 & pt unresponsive Furosemide 20 mg 06/29/24 09:00 07/01/24 08:20 Furosemide 20 Mg Tablet PO 07/29/24 08:59 20 mg QAM CLARA Administration Glucagon 1 mg 06/29/24 05:56 Glucagon Inj 1 Mg Vial IM Q15MIN PRN BG <70, and no IV access Heparin Sodium/Dextrose 25,000 unit in 250 mls @ 10.084 mls/hr 06/29/24 05:45 07/01/24 06:41 Heparin In D5w Ivpb IV 07/13/24 05:44 9.259 units/kg/hr .Q24H CLARA 10.084 mls/hr Titration Protocol 9.259 UNITS/KG/HR Insulin Human Lispro 0 unit 06/29/24 07:30 07/01/24 08:02 Insulin Lispro (Admelog) 1 Unit/0.01 Ml Unit SC 07/29/24 07:29 Not Given AC CLARA Protocol Isosorbide Mononitrate 30 mg 06/29/24 09:00 07/01/24 08:20 Isosorbide Er Mononitrate 30 Mg Tabcr PO 07/29/24 08:59 30 mg QDAY CLARA Administration Levothyroxine Sodium 125 mcg 06/29/24 06:00 07/01/24 05:33 Levothyroxine Sodium 125 Mcg Tablet PO 07/29/24 05:59 125 mcg ACBR CLARA Administration Metoprolol Succinate 25 mg 06/29/24 09:00 07/01/24 08:20 Metoprolol Succinate Xl 25 Mg Tabcr PO 07/29/24 08:59 25 mg QDAY CLARA Administration Morphine Sulfate 1 mg 07/01/24 08:15 Morphine Sulf Inj 10 Mg/Ml Vial IVP 07/06/24 08:14 Q4HR PRN PAIN Pantoprazole Sodium 40 mg 06/29/24 09:00 07/01/24 08:19 Pantoprazole 40 Mg Tablet PO 07/29/24 08:59 40 mg QDAY CLARA Administration Prednisone 10 mg 06/29/24 09:00 07/01/24 08:19 Prednisone 5 Mg Tablet PO 07/29/24 08:59 10 mg QAM CLARA Administration Pregabalin 75 mg 06/29/24 09:00 07/01/24 08:20 Pregabalin 75 Mg Capsule PO 07/29/24 08:59 75 mg BID CLARA Administration Sacubitril/Valsartan 1 tab 06/29/24 09:00 07/01/24 08:20 Sacubitril 24 Mg/Valsartan 26 Mg Tablet PO 07/29/24 08:59 1 tab BID CLARA Administration Tramadol HCl 50 mg 06/29/24 09:00 07/01/24 08:19 Tramadol Hcl 50 Mg Tablet PO 07/04/24 08:59 50 mg Q12HR CLARA Administration Plan #Acute coronary syndrome, NSTEMI type I #Severe multivessel coronary artery disease ? Of note, Patient is well-known to university lecturer Dr. Michelle Reyes, was patient had a similar presentation last month and underwent coronary angiogram, which revealed severe multivessel disease with evidence of chronic total occlusion of right coronary artery and critical 90% left main coronary artery stenosis and 95% stenosis of proximal left anterior descending artery. Also noted moderate LV dysfunction EF 35 to 40%. She was recommended to have bypass surgery, but patient reported that she was seen by cardiothoracic surgeon and was told that surgery will be high risk, with possible risk of and comorbidity. The patient chose to forego surgery, patient was also offered PCI to left mainstem as a second line high risk procedure by Dr. Michelle Reyes, but patient declined to have the procedure at that time. The patient is admitted by the medical team, and cardiology is consulted. Continued to have uptrending troponins during hospital stay, last troponin > 25, but on reevaluation patient did not complain of chest pain. Plan: ? Continue with aspirin 81 mg, Plavix 75 mg, statins considered, but pt intolerant of statins. ? Sublingual nitroglycerin as needed, for chest pain ? Patient spoke to university lecturer Dr. Reyes, agrees with plan to proceed with PCI, as she has critical stenosis left mainstem and LAD and severe multivessel disease, will initiate transfer process, tentative plan for cardiac cath at [facility] , likely on Friday. Continue with heparin drip, aspirin and Plavix, as needed nitroglycerin for chest pain. #HFrEF Patient has history of HFrEF, EF 35 to 40%, currently patient is in no respiratory distress, saturating well on 2 L oxygen which is close to her baseline at home, does not complain of orthopnea. On physical exam patient does appear clinically dry, no pedal edema noted. ? Medical management including metoprolol succinate 25 mg, Entresto, as tolerated. #Anemia Acute downtrend in Hb Likely dilutional vs GI blood loss due to heparin drip and steroids, continue to monitor daily CBC, pt is a V[employer]. Continue GI prophylaxis with Protonix #History of hypertension #History of polymyalgia rheumatica #History of fibromyalgia - Management per primary team. Case discussed with university lecturer Dr Josefa Best pgy2
--- NOTE | 2024-07-01 12:55 | PC.CC ---
Addendum entered by Lonny Cardenas RN 07/01/24 19:47: 1830 transfer packet with 2 CD's inside kept with pt chart and updated bedside nurse. Addendum entered by Lonny Cardenas RN 07/01/24 18:09: 1807 called and informed charge nurse about picket labor union time at 1330 on 07/02/24. Addendum entered by Lonny Cardenas RN 07/01/24 18:07: [address] [facility] through [employer]. Called [facility], spoke to [facility] and set up the transport. The picket labor union time is 1330 on 07/02/24. Addendum entered by Lonny Cardenas RN 07/01/24 17:52: 1752 transfer packet is complete with 2 CD's inside including all signatures. 1 CD for this admission imaging and 1 CD for ECHO and angiogram done last admission. Addendum entered by Lonny Cardenas RN 07/01/24 17:39: Number to call report at [facility] supervisor laboratory is [phone]. Addendum entered by Lonny Cardenas RN 07/01/24 17:14: 1710 TBA is completed and faxed it to [facility]. [id number] Herrera, charge nurse, unit assembler about pt will be transferred tomorrow to [facility] and pt needs to be there at 1500. NPO after MN. Addendum entered by Lonny Cardenas RN 07/01/24 17:12: [address] Juana Reyes in the hospital and he signed TBA, pink paper and PCS. Addendum entered by Lonny Cardenas RN 07/01/24 17:11: 1627 received call from Zarina at [facility] that pt to be NPO after MN, Dr. Juana Reyes is accepting the pt. and pt needs to be at cathlab before 1500 tomorrow. She also wants me to work on TBA. Original Note: 1508 clinicals faxed to [facility]. [address] Dupont to clarify, Dr. Dupont stated pt has multi vessel disease and pt is not a candidate for CABG. Due to high risks involved, Dr. Kaden Reyes wants stent placement where he can have cardio-thoracic as a backup. 1447 received call from [facility] that and Dr. Kaden Reyes called her and stated to find a bed for the transfer. I informed her that I am not aware about transfer and I will call her back. She also stated to fax clinicals. [address] Magana during 1400 meeting [facility] is asking about transfer for the pt. Dr. Magana stated she will find out. [address] Kaden Reyes, left . 1255 while working on ED transfers with [facility], Carmelina at [facility] informed me that Dr. Kaden Reyes called her and telling her to work on transfer. I informed her that I am not aware about transfer and I will call Dr. Kaden Reyes.
--- NOTE | 2024-07-01 14:14 | EVENTNT_ITS ---
Documentation for date of: 07/01/24 Event Note Event Note: Rapid response was called at approximately 7:50 AM due to sudden onset chest pain similar to previous episodes of NSTEMI. Patient received 2 doses of sublingual nitrogen and 1 mg morphine IV, chest pain resolved. Patient had EKG, unchanged from previous EKG. Patient blood pressure and heart rate stable. Cardiology was informed, improved current management, will attempt to transfer patient to [facility]. Rapid response ended at approximately 8:05 AM. Plan of care discussed with attending Dr. Roman. Kameron Singh MD PGY?1
--- NOTE | 2024-07-01 14:17 | ESPR_ITS ---
<Statement entered by Jaime Roman MD - 07/02/24 11:26> I have discussed and was present for the essential components of the history, physical examination, diagnosis, and treatment plan with the resident. I agree with the patient's care as documented by the resident and amended herein by me. Jaime Roman MD FACP. <Statement entered by Brianda Mendenhall MD - 07/01/24 15:26> Patient seen and examined at bedside. No acute overnight events reported. Patient had a rapid response morning for chest pain that resolved with nitroglycerin and morphine. Will add morphine and nitroglycerin as needed. Patient will continue to be on a heparin drip, pending transfer to [facility] scheduled for tonight or for tomorrow. Cardiology team following. I discussed with and supervised the accounting intern physician who took care of this patient. I personally saw and examined the patient and discussed the assessment and plan with the entire medicine team, including my attending , I agree with most of the assessment and plan as documented below Brianda Mendenhall M.D. PGY-2 Disclaimer: Despite multiple revisions, due to the dictation software being used, the document bellow may not be free of grammatical errors including phonetic/typographic errors. However, this does not deter from our commitment to providing health care in the patient's best interest in mind. Documentation for date of: 07/01/24 Subjective Subjective Interval history: No overnight events. Patient seen examined at bedside, resting comfortably. Patient rapid response in the morning due to chest pain, resolved with sublingual nitrogen and morphine. Patient denies chest pain, shortness of breath, headache, nausea, vomiting but does endorse some fatigue following the rapid response. Patient remains on heparin drip. Pending transfer to [facility], possibly tonight but likely tomorrow. Morphine and nitro as needed. Exam Vital Signs Temp Pulse Resp BP Pulse Ox O2 Del Method O2 Flow Rate 98.7 F 86 12 119/73 100 Nasal Cannula 2 07/01/24 12:00 07/01/24 12:00 07/01/24 12:07/01/24 12:00 07/01/24 12:00 07/01/24 12:07/01/24 10:14 Narrative Exam PE: Gen: Well-developed and well-nourished. Obese. HEENT: NCAT, PERRLA, EOMI, MMM, anicteric conjunctivae. CVS: normal S1 and S2. RRR. No M/R/G. Resp: CTA B/L. No rhonchi, rales, crackles or wheezing. Abd: soft, non-tender, non-distended. MSK: Good ROM in BUE & BLE. No edema or rash. Neuro: CN II-XII grossly intact. Strength 5/5 in BUE & BLE. Alert and oriented x3. Psych: appropriate mood and affect. Objective Labs 07/01/24 04:29 07/01/24 04:29 Labs: Laboratory Results - last 24 hr 06/30/24 06/30/24 07/01/24 18:00 19:25 04:29 WBC 8.7 RBC 3.68 L Hgb 10.3 L Hct 32.2 L MCV 88 MCH 28.0 MCHC 32.0 RDW Std Deviation 55.1 H Plt Count 152 Neut % (Auto) 79 Lymph % (Auto) 10 Avery % (Auto) 7 Eos % (Auto) 3 Baso % (Auto) 0 Neut # (Auto) 6.9 Lymph # (Auto) 0.8 L Avery # (Auto) 0.6 Eos # (Auto) 0.3 Baso # (Auto) 0.0 Immature Gran # (Auto) 0.08 H Absolute Nucleated RBC 0.00 Immature Gran % 1 H Nucleated RBC % 0 APTT 60.9 H D 66.9 H Sodium 140 Potassium 4.4 Chloride 103 Carbon Dioxide 28.8 Anion Gap 8 BUN 38 H Creatinine 1.3 Estim Creat Clear Calc 46.1 L eGFR 42 L BUN/Creatinine Ratio 29 H Glucose 94 Calculated Osmolality 288 Calcium 9.9 Corrected Calcium 10.3 H Phosphorus 3.8 Magnesium 1.9 Total Bilirubin 0.4 AST 40 H ALT 31 Alkaline Phosphatase 53 D Troponin I 10.373 H* D Total Protein 5.9 Albumin 3.5 D Globulin 2.4 Albumin/Globulin Ratio 1.5 Quality Measures Quality Measures VTE prophylaxis Advance care planning discussed with:: patient Assessment & Plan Assessment Current Active Medications: Generic Name Dose Route Start Last Admin Trade Name Freq PRN Reason Stop Dose Admin Acetaminophen 650 mg 06/29/24 05:45 Acetaminophen 325 Mg Tablet PO 07/29/24 05:44 Q6H PRN Fever >101.5 Alprazolam 0.5 mg 06/29/24 05:50 Alprazolam 0.25 Mg Tablet PO 07/04/24 05:49 BID PRN ANXIETY Aspirin 81 mg 06/30/24 09:00 07/01/24 08:19 Aspirin Ec 81 Mg Tabec PO 07/30/24 08:59 81 mg QDAY CLARA Administration Clopidogrel Bisulfate 75 mg 06/29/24 09:00 07/01/24 08:19 Clopidogrel Bisulfate 75 Mg Tablet PO 07/29/24 08:59 75 mg QDAY CLARA Administration Dextrose 25 ml 06/29/24 05:56 Dextrose 50%-Water Inj 50 Ml Syringe IV 07/29/24 05:55 Q15MIN PRN BG 50-70 responsive npo pt Dextrose 50 ml 06/29/24 05:56 Dextrose 50%-Water Inj 50 Ml Syringe IV 07/29/24 05:55 Q15MIN PRN BG <50 OR BG <70 & pt unresponsive Furosemide 20 mg 06/29/24 09:00 07/01/24 08:20 Furosemide 20 Mg Tablet PO 07/29/24 08:59 20 mg QAM CLARA Administration Glucagon 1 mg 06/29/24 05:56 Glucagon Inj 1 Mg Vial IM Q15MIN PRN BG <70, and no IV access Heparin Sodium/Dextrose 25,000 unit in 250 mls @ 10.084 mls/hr 06/29/24 05:45 07/01/24 06:41 Heparin In D5w Ivpb IV 07/13/24 05:44 9.259 units/kg/hr .Q24H CLARA 10.084 mls/hr Titration Protocol 9.259 UNITS/KG/HR Insulin Human Lispro 0 unit 06/29/24 07:30 07/01/24 11:46 Insulin Lispro (Admelog) 1 Unit/0.01 Ml Unit SC 07/29/24 07:29 Not Given AC CLARA Protocol Isosorbide Mononitrate 30 mg 06/29/24 09:00 07/01/24 08:20 Isosorbide Er Mononitrate 30 Mg Tabcr PO 07/29/24 08:59 30 mg QDAY CLARA Administration Levothyroxine Sodium 125 mcg 06/29/24 06:00 07/01/24 05:33 Levothyroxine Sodium 125 Mcg Tablet PO 07/29/24 05:59 125 mcg ACBR CLARA Administration Metoprolol Succinate 25 mg 06/29/24 09:00 07/01/24 08:20 Metoprolol Succinate Xl 25 Mg Tabcr PO 07/29/24 08:59 25 mg QDAY CLARA Administration Morphine Sulfate 1 mg 07/01/24 08:15 Morphine Sulf Inj 10 Mg/Ml Vial IVP 07/06/24 08:14 Q4HR PRN PAIN Pantoprazole Sodium 40 mg 06/29/24 09:00 07/01/24 08:19 Pantoprazole 40 Mg Tablet PO 07/29/24 08:59 40 mg QDAY CLARA Administration Prednisone 10 mg 06/29/24 09:00 07/01/24 08:19 Prednisone 5 Mg Tablet PO 07/29/24 08:59 10 mg QAM CLARA Administration Pregabalin 75 mg 06/29/24 09:00 07/01/24 08:20 Pregabalin 75 Mg Capsule PO 07/29/24 08:59 75 mg BID CLARA Administration Sacubitril/Valsartan 1 tab 06/29/24 09:00 07/01/24 08:20 Sacubitril 24 Mg/Valsartan 26 Mg Tablet PO 07/29/24 08:59 1 tab BID CLARA Administration Tramadol HCl 50 mg 06/29/24 09:00 07/01/24 08:19 Tramadol Hcl 50 Mg Tablet PO 07/04/24 08:59 50 mg Q12HR CLARA Administration Plan 79-year-old female patient Jehovah witness with past medical history polymyalgia rheumatica, hypothyroidism, hypertension, wheelchair-bound, asthma, HFrEF last EF on May 2024 was 35 to 40% on angiogram, asthma on 2 L of oxygen, obesity, chronic neck pain presented to the ED due to acute onset of burning chest pain. #Non-STEMI type I #History of multivessel coronary artery disease #History of HFrEF last EF 35 to 40% on angiogram Patient was vitally stable except heart rate was 108, saturating 95% on her baseline oxygen of O2 2 L, her CBC was only significant for mild leukocytosis of 14.3, platelets 231, CMP was only significant for serum creatinine of 1.3 which is her baseline, BUN 40, glucose of 193, calcium of 10.5, troponin 2.710 up trended to 14.257 within 3 hours. BNP was 730, last BMP 4 the patient was 2583. EKG was done and showed left bundle branch block, seen on previous imaging. No ST segment changes was noted in the recent EKG. Patient was given 1 dose of aspirin at the ED 324 mg p.o. x 1. Patient had NSTEMI in May, was found to have multiple vessel disease. Patient refused CABG due to concerns of bleeding, did not wish for stent at that time, medical management. Patient considering receiving stent this visit, pending consultation with cardiology. Patient had episode of hypotension and tachycardia, improved with 250 mL bolus. Morning antihypertensives held. Patient had 2 rapid responses due to chest pain, both resolved with sublingual nitroglycerin and morphine. EKGs were unchanged. Pending transfer to [facility]. -Admit patient to telemetry -Cardiology consultation to Dr. Reyes was ordered, appreciate recommendations -Continue the patient on aspirin 81 mg daily, Plavix 75 mg daily -Continue the patient home medication Entresto -heparin drip -Continue the patient home medication Lasix 20 mg -Continue the patient home medication metoprolol 25 mg daily -Isosorbide mononitrate 30 mg p.o. daily -Strict in and out -Fluid restriction to 1500 mL -Plan to transfer to [facility] for cardiac catheterization and stent placement #History of hypothyroidism Patient history as stated. Last TSH was within normal limits in May 2024 -Resume home medication levothyroxine 125 mcg ACBR #History of hypertension Patient history as stated -Resume home medication metoprolol as above -Resume home medication Entresto as above #History of polymyalgia rheumatica #History of fibromyalgia Patient history as stated -Resume home medication prednisone 10 mg daily #History of asthma Patient history as stated -At this time patient does not have any symptoms or wheezing. -Consider giving the patient breathing treatments if needed FEN: Cardiac diet DVT ppx: Heparin GI ppx: Protonix IV lines: PIV Code status: DNI Plan of care discussed with senior resident Dr. Mendenhall PGY?[address] Roman. Kameron Joshi MD PGY?1
[2024-07-01] MEDS: INSULIN LISPRO (AdmeLOG) 1 UNIT/0.01 ML UNIT SC (17:43)
[2024-07-02] VITALS (7 sets, daily range): BP systolic 124–138; BP diastolic 58–68; PULSE 56–98; RESP 12–15; TEMP 35.9–36.7; O2SAT 99–100; BMI 33.7
[2024-07-02] MEDS: LEVOTHYROXINE SODIUM 125 MCG TABLET PO (05:05)
[2024-07-02 06:07] LABS: Basophils % (Auto) 0 % (0-2.5); Eosinophils # (Auto) 0.2 Thou/mm3 (0.0-0.5); Eosinophils % (Auto) 3 % (0-10); Hematocrit 30.2 % (36.0-46.0); Hemoglobin 9.8 g/dL (12.0-16.0); Immature Granulocytes % (Auto) 2 % (0-0); Immature Granulocytes Auto 0.11 Thou/mm3 (0.00-0.00); Lymphocytes % (Auto) 13 % (10-50); Mean Corpuscular HGB Conc 32.5 g/dl (31.0-37.0); Mean Corpuscular Hemoglobin 28.2 pg (25.0-35.0); Mean Corpuscular Volume 87 fL (80-100); Monocytes # (Auto) 0.5 Thou/mm3 (0.0-0.8); Monocytes % (Auto) 6 % (0-12); Neutrophils # (Auto) 5.6 Thou/mm3 (1.8-7.7); Neutrophils % (Auto) 76 % (37-80); Nucleated Red Blood Cell # 0.02 Thou/mm3 (0.00-0.00); Nucleated Red Blood Cell % 0 /100 WBC (0); Platelet Count 203 Thou/mm3 (140-440); RDW Standard Deviation 55.3 fL (36.4-46.3); Red Blood Count 3.48 Miln/mm3 (4.00-5.20); White Blood Count 7.4 Thou/mm3 (3.6-11.0)
[2024-07-02 06:28] LABS: Partial Thromboplastin Time 59.2 Seconds (22.0-36.0)
[2024-07-02 06:37] LABS: Alanine Aminotransferase 24 U/L (10-49); Albumin, Serum 3.5 gm/dL (3.4-4.8); Albumin/Globulin Ratio 1.6 (1.2-2.2); Alkaline Phosphatase 52 U/L (46-116); Anion Gap 8 (7-16); Aspartate Amino Transferase 28 U/L (0-34); BUN/Creatinine Ratio 24 Ratio (12-20); Bilirubin,Total 0.3 mg/dL (0.3-1.2); Blood Urea Nitrogen 34 mg/dL (9-23); Calcium 9.7 mg/dL (8.3-10.6); Calcium (Corrected) 10.1 mg/dL (8.5-10.1); Carbon Dioxide 26.7 mMol/L (20.0-31.0); Chloride 103 mMol/L (98-107); Creatinine (Component) 1.4 mg/dL (0.6-1.3); Estimated Creatinine Clearance 42.9 mL/min (>60); Globulin 2.2 gm/dL (2.3-3.5); Glucose 110 mg/dL (74-106); Magnesium 1.8 mg/dL (1.6-2.6); Osmolality,Calculated 284 (275-295); Potassium 4.3 mMol/L (3.4-5.1); Sodium 138 mMol/L (136-145); Total Protein 5.7 gm/dL (5.7-8.2); eGFR 38 See Note
[2024-07-02] MEDS: Heparin/D5w 25K 250 ML Ivpb 25,000 UNIT/250 ML BAG 10.084 UNIT IV (07:27)
[2024-07-02] MEDS: ISOSORBIDE ER MONONITRATE 30 MG TABCR PO (08:41)
[2024-07-02] MEDS: CLOPIDOGREL BISULFATE 75 MG TABLET PO (08:41)
[2024-07-02] MEDS: PANTOPRAZOLE 40 MG TABLET PO (08:42)
[2024-07-02] MEDS: METOPROLOL SUCCINATE XL 25 MG TABCR PO (08:42)
[2024-07-02] MEDS: SACUBITRIL 24 MG/VALSARTAN 26 MG TABLET 1 TAB PO (08:42)
[2024-07-02] MEDS: traMADol HCL 50 MG TABLET PO (08:43)
[2024-07-02] MEDS: ASPIRIN EC 81 MG TABEC PO (08:43)
[2024-07-02] MEDS: PREGABALIN 75 MG CAPSULE PO (08:43)
[2024-07-02] MEDS: predniSONE 5 MG TABLET 10 MG PO (08:44)
[2024-07-02] MEDS: Furosemide 20 MG TABLET PO (08:45)
[2024-07-02] MEDS: RINGERS LACTATED 1000 ML 1,000 ML 100 ML IV (09:01)
--- NOTE | 2024-07-02 10:09 | PC.SS ---
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
--- NOTE | 2024-07-02 11:10 | PC.CM ---
Addendum entered by Jose Chan RN 07/02/24 11:52: Spoke with [facility] transfer Nurse Rach, inquired if patient would be returning to [place] after their procedure today and she stated that the patient would be admitted to their cardiac ICU after procedure so there is no need to hold a bed for patient. Informed Charge Nurse Rocio. Original Note: AM labs printed and added to transfer packet this morning. Provided number for report to Charge Nurse Rocio and informed bedside nurse Graciela to call report prior to the 1330 parts picker time for patient.
--- NOTE | 2024-07-02 11:17 | ESDS_ITS ---
<Statement entered by Jaime Roman MD - 07/03/24 17:12> I have discussed and was present for the essential components of the history, physical examination, diagnosis, and treatment plan with the resident. I agree with the patient's care as documented by the resident and amended herein by me. Jaime Roman MD FACP. <Statement entered by Brianda Mendenhall MD - 07/03/24 14:39> I discussed with and supervised the leadership program internship physician who took care of this patient. I personally saw and examined the patient and discussed the assessment and plan with the entire medicine team, including my attending Dr. Roman, I agree with most of the assessment and plan as documented below Brianda Mendenhall M.D. PGY-2 Planned Discharge Date 07/02/24 DS: Providers Provider Date of admission: 06/29/24 05:45 Primary care physician: Suraj Yi MD Admitting Provider: Eber Jacobs MD Attending Provider on Admission: Jaime Roman MD Consults: 06/29/24 05:32 Consult to Cardiology Stat Comment: Consulting Provider: Natanael Reyes Instructions: NSTEMI Attending Provider on DC: Jaime Roman MD Discharging Provider: Kameron Joshi MD DS: Diagnosis Problem List Completed Was Problem List Reviewed/Reconciled?: Yes Hospital Course Hospital Course Hospital course: 79-year-old female patient Jehovah witness with past medical history polymyalgia rheumatica, hypothyroidism, hypertension, wheelchair-bound, asthma, HFrEF last EF on May 2024 was 35 to 40% on angiogram, asthma on 2 L of oxygen, ob esity, chronic neck pain presented to the ED on 06/24/2024 due to acute onset of burning chest pain. Patient had elevated troponin, uptrending, EKG did not show significant changes from previous visits. Patient started on heparin drip for NSTEMI type I. Patient was seen in May for similar issues, received cardiac cath which showed significant multivessel disease. Patient be transferred for CABG procedure, however it was decided through shared decision making that a CABG procedure would be too risky and patient was placed on medical management. Patient treated with heparin drip while options were discussed through shared decision making. Patient elected to go through with PCI and stent placement. Cardiology recommended transfer to [facility] due to risky nature of the procedure. [facility] accepted transfer, patient transferred out. Discharge plan: You are being transferred to [facility] for further management. Please take medication as directed by [facility] medical team. Diagnoses: #Non-STEMI type I #History of multivessel coronary artery disease #History of HFrEF last EF 35 to 40% on angiogram #History of hypothyroidism #History of hypertension #History of polymyalgia rheumatica #History of fibromyalgia #History of asthma Plan of care discussed with senior resident Dr. Mendenhall PGY?[address] Roman. Kameron Joshi MD PGY?1 Status at Discharge Overall status at discharge: other (Patient is stable but not baseline, frequent episodes of unstable angina) Time Spent with Patient Time attestation: Total time spent providing and/or coordinating discharge services: Time spent: Greater than 30 minutes Quality: Stroke Pt Provided Written Stroke Discharge Instructions: No Exam Vital Signs Temp Pulse Resp BP Pulse Ox O2 Del Method O2 Flow Rate 97.0 F 98 15 127/58 L 100 Nasal Cannula 2 07/02/24 08:00 07/02/24 08:45 07/02/24 08:00 07/02/24 08:45 07/02/24 08:00 07/02/24 08:00 07/02/24 08:00 Narrative Exam PE: Gen: Well-developed and well-nourished. Obese. HEENT: NCAT, PERRLA, EOMI, MMM, anicteric conjunctivae. CVS: normal S1 and S2. RRR. No M/R/G. Resp: CTA B/L. No rhonchi, rales, crackles or wheezing. Abd: soft, non-tender, non-distended. MSK: Good ROM in BUE & BLE. No edema or rash. Neuro: CN II-XII grossly intact. Strength 5/5 in BUE & BLE. Alert and oriented x3. Psych: appropriate mood and affect. Discharge Plan Plan Patient Disposition: Xfer Other Facility Pt Being Transferred to: [facility] Service Needed for Transfer: Cardiovascular/Thoracic Surg Patient condition on transfer: Stable Care Plan Goals: You are being transferred to [facility] for further management. Please take medication as directed by [facility] medical team. Prescriptions/Referrals Prescriptions/Med Rec: Continued levothyroxine 125 mcg Tablet 125 mcg PO QDAY albuterol sulfate 90 mcg/actuation Hfa Aerosol Inhaler 2 puff INHALATION Q6H PRN (Reason: Shortness Of Breath Or Wheezing) fluticasone propion-salmeterol 250-50 mcg/dose Blister With Device 1 inh INHALATION BID furosemide 40 mg tablet 40 mg PO QDAY prednisone 20 mg tablet 20 mg PO EVERYOTHERDAY Patient Comments: TAKE 1 TABLET BY MOUTH EVERY DAY tramadol 50 mg tablet 50 mg PO Q12H PRN (Reason: pain) Patient Comments: TAKE 1 TABLET TWICE DAILY FOR PAIN Entresto 49-51 mg tablet 1 tab PO BID meclizine 50 mg tablet 50 mg PO QDAY clopidogrel 75 mg tablet 75 mg PO QDAY prednisone 10 mg tablet 30 mg PO EVERYOTHERDAY Patient Comments: TAKE 3 TABLETS BY MOUTH ONCE DAILY DIRECTED. Rx Instructions: alternate days between 20 and 30mg carvedilol [Coreg] 3.125 mg tablet 3.125 mg PO BID Rx Instructions: must administer with a meal/food Referrals: Suraj Yi MD [Primary Care Provider] - Patient/Caregiver Discharge Instructions Discharge Activity: activity as tolerated Education Materials: CAD, Heart Attack Meds, Heart Attack Questions Print Language: Albanian Stand Alone Forms: Stacy Award Info., Patient Portal Info Letter Discharge Order Discharge Orders: Discharge (Routine); Ordered 07/02/24 Ordered By: Kameron Joshi Quality Discharge Quality Measures VTE prophylaxis
--- NOTE | 2024-07-02 16:57 | ECHO_ITS ---
Transthoracic Echo Report Ht (in): 69 Wt (lb): 228 Exam Location: Portable Status: Inpatient Coil Winder: DODGE Constance^^^^ Indications: Procedure Performed: BP: 124 / 74 HR: 63 Technical Quality: Fair MEASUREMENTS (Male / Female) Normal Values 2D ECHO LV Diastolic Diameter PLAX 4.6 cm 4.2 - 5.9 / 3.9 - 5.3 cm LV Systolic Diameter PLAX 3.8 cm IVS Diastolic Thickness 1.1 cm 0.6 - 1.0 / 0.6 - 0.9 cm LVPW Diastolic Thickness 1.0 cm 0.6 - 1.0 / 0.6 - 0.9 cm LV Relative Wall Thickness 0.4 LVOT Diameter 1.5 cm Aortic Root Diameter 2.6 cm LA Systolic Diameter LX 4.1 cm 3.0 - 4.0 / 2.7 - 3.8 cm LV Ejection Fraction MOD 4C 59.3 % LV Cardiac Index MOD 4C 5030.2 cm?/min?m? LV Ejection Fraction 4C AL 60.2 % LV Cardiac Index 4C AL 5295.6 cm?/min?m? LV Ejection Fraction MOD 2C 56.6 % LV Cardiac Index MOD 2C 2739.0 cm?/min?m? LV Ejection Fraction 2C AL 57.1 % LV Cardiac Index 2C AL 2793.3 cm?/min?m? LA Volume Index 36.2 cm?/m? 16 - 28 cm?/m? Ascending Aorta Diameter 2.5 cm DOPPLER AV Peak Velocity 207.3 cm/s AV Peak Gradient 17.2 mmHg AV Mean Gradient 10.0 mmHg AV Velocity Time Integral 40.6 cm LVOT Peak Velocity 89.8 cm/s LVOT Peak Gradient 3.2 mmHg LVOT Velocity Time Integral 18.8 cm LVOT Cardiac Index 918.2 cm?/min?m? AV Area Cont Eq vti 0.8 cm? AV Area Cont Eq pk 0.8 cm? MV Area PHT 3.2 cm? MR Peak Velocity 585.0 cm/s MR Peak Gradient 136.9 mmHg Mitral E Point Velocity 67.3 cm/s Mitral A Point Velocity 101.0 cm/s Mitral E to A Ratio 0.7 LV E' Lateral Velocity 7.7 cm/s Mitral E to LV E' Lateral Ratio 8.7 LV E' Septal Velocity 4.9 cm/s Mitral E to LV E' Septal Ratio 13.8 TR Peak Velocity 343.0 cm/s TR Peak Gradient 47.1 mmHg PV Peak Velocity 106.0 cm/s PV Peak Gradient 4.5 mmHg RVOT Peak Velocity 45.8 cm/s FINDINGS Left Ventricle Normal left ventricular size, wall thickness,is normal with moderate global hypokinesis Right Ventricle The right ventricle is normal in size and systolic function. The estimated right ventricular systolic pressureis moderately elevated, 56 mmHg. Left Atrium The left atrial cavity size is mildly increased. Right Atrium The right atrial cavity size is mildly increased. Atrial Septum The interatrial septum appears normal with no evidence of a shunt. Aorta The aorta is normal by two-dimensional, color flow and Doppler interrogation. Mitral Valve [id number] mitral regurgitation. Moderate mitral annular calcification. Aortic Valve Mild aortic valve stenosis, mean gradient 10 mmHg, LIBBY 0.82 cm?. Tricuspid Valve There is moderate to severe tricuspid valve regurgitation. Pulmonic Valve The pulmonic valve is not well visualized. There is no significant pulmonic valve regurgitation. Vessels The pulmonary artery appears normal. The inferior vena cava pulmonary and hepatic veins appear normal. Pericardium The pericardium is normal by two-dimensional imaging. There is no significant pericardial effusion. CONCLUSIONS indication: NSTEMI Moderate global left ventricular hypokinesis LVEF 35% . Diastolic Dysfunction I present. RV appears normal with RVSP 56 mmHg. LA is mildly dilated. RA is mildly dilated Moderate mitral regurgitation Mod-Severe TR Juana King (Electronically Signed) Final Date: 02 July 2024 13:17
== END 2024-07-02 13:35 | disposition other institution (70) | DRG 281 ==
LOC: SERX 05:32 → SERHOLD 06:09 → S2NX 21:33
PROVIDERS: Student in an Organized Health Care Education/Training Program; Admitting Provider Internal Medicine; Emergency Provider Emergency Medicine; PCP Internal Medicine; Visit Provider Internal Medicine
DX: I21.4 Non-ST elevation (NSTEMI) myocardial infarction (principal); I50.22 Chronic systolic (congestive) heart failure; I11.0 Hypertensive heart disease with heart failure; M79.7 Fibromyalgia; M35.3 Polymyalgia rheumatica; E03.9 Hypothyroidism, unspecified; J45.909 Unspecified asthma, uncomplicated; E66.9 Obesity, unspecified; D64.9 Anemia, unspecified; I25.2 Old myocardial infarction; I25.10 Atherosclerotic heart disease of native coronary artery without angina pectoris; I44.7 Left bundle-branch block, unspecified; I95.9 Hypotension, unspecified; Z99.3 Dependence on wheelchair; Z99.81 Dependence on supplemental oxygen; Z90.49 Acquired absence of other specified parts of digestive tract; Z68.33 Body mass index [BMI] 33.0-33.9, adult; Z88.8 Allergy status to other drugs, medicaments and biological substances; Z79.890 Hormone replacement therapy; Z79.899 Other long term (current) drug therapy
CPT/HCPCS: 36415; 71045; 80048; 80053; 83735; 83880; 84100; 84484; 85025; 85610; 85730; 93005; 93306; 96365; 96366; 96374; 99285; J1643; J1644; J1815; J2270; J7050; J7120; J7512; A9270

== ENCOUNTER → 2025-03-25 | Outpatient (CLI) | payer MEDICARE, SELFPAY ==
[2025-03-25 14:31] LABS: Albumin, Serum 4.2 gm/dL (3.4-4.8); Anion Gap 15 (7-16); BUN/Creatinine Ratio 24 Ratio (12-20); Blood Urea Nitrogen 48 mg/dL (9-23); Calcium 9.6 mg/dL (8.3-10.6); Calcium (Corrected) 9.6 mg/dL (8.5-10.1); Carbon Dioxide 28.5 mMol/L (20.0-31.0); Chloride 100 mMol/L (98-107); Creatinine (Component) 2.0 mg/dL (0.6-1.3); Glucose 183 mg/dL (74-106); Osmolality,Calculated 302 (275-295); Phosphorous 3.2 mg/dL (2.4-5.1); Potassium 4.7 mMol/L (3.4-5.1); Sodium 143 mMol/L (136-145); eGFR 25 See Note
== END | disposition home or self-care (01) ==
LOC: COPL 12:57
PROVIDERS: PCP Internal Medicine; Referring Provider Internal Medicine Cardiovascular Disease; Visit Provider Internal Medicine Cardiovascular Disease
DX: E78.00 Pure hypercholesterolemia, unspecified (principal)
CPT/HCPCS: 36415; 80069